=== PATIENT | female | born 1970 | race Caucasian/White ===

== ENCOUNTER 2022-08-14 12:30 | Emergency (ER) | payer BC, SELFPAY ==
[2022-08-14] VITALS (7 sets, daily range): BP systolic 116–130; BP diastolic 78–88; PULSE 69–108; RESP 24; TEMP 36.3; O2SAT 93–98; BMI 26.6
--- NOTE | 2022-08-14 13:00 | CRLHL7_ITS ---
For Patients: As a result of the Century Cures Act, medical imaging exams and procedure reports are released immediately into your electronic medical record. You may view this report before your referring provider. If you have questions, please contact your health care provider. INDICATION: Cough. TECHNIQUE: Chest 1 views. COMPARISON: None. FINDINGS: Cardiovasculature and mediastinum: Heart size and vasculature are normal in caliber and appearance. Lungs and pleural spaces: Lungs are clear. No sign of infiltrate or mass. No sign of pleural effusion. No pneumothorax. Bones and soft tissues: No significant findings. IMPRESSION: No acute or significant findings. Dictated by Tim Mills MD @ 08/14/2022 2:24:11 PM (Electronically Signed)
--- NOTE | 2022-08-14 13:13 | ED.GENADULT ---
HPI - General Adult General Chief complaint: Cough Stated complaint: chest pressure, feeling ill Time Seen by Provider: 08/14/22 12:45 History of Present Illness HPI narrative: 51-year-old woman presenting to the emergency department just feeling awful generally and getting worse over the last 3 days. 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 Describing marked myalgias. No fever. No rash. Persistent cough. Has tried combination [id number] cough medication including guaifenesin and acetaminophen. No change in symptoms. Has been trying to push fluids. Has been struggling with post COVID syndrome since 2020. Daughter was recently diagnosed with West Nile ultimately requiring intubation prolonged ventilation. 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 Has not been vomiting. No diarrhea. His like she might be dehydrated has finding it more difficult to keep up with her usual gal? per day. Has a lot of tightness across the chest. 2 home COVID tests were negative. No longer with strep since tonsillectomy when young. Related Data Home Medications Medication Instructions Recorded Confirmed duloxetine 20 mg capsule,delayed 40 mg PO DAILY 08/14/22 08/14/22 release letrozole 2.5 mg tablet 2.5 mg PO DAILY 08/14/22 08/14/22 levothyroxine 100 mcg tablet 100 mcg PO DAILY 08/14/22 08/14/22 pyridostigmine bromide 60 mg tablet 60 mg PO DAILY 08/14/22 08/14/22 sulfasalazine 500 mg tablet 1,000 mg PO BID 08/14/22 08/14/22 Allergies Allergy/AdvReac Type Severity Reaction Status Date / Time vancomycin [From Vancocin] Allergy Verified 08/14/22 12:42 Review of Systems Status of ROS: Reports: 6 or more systems reviewed and unremarkable except as noted in History and below [facility] Social History Smoking Status: Never smoker Do you use any of these nicotine containing products: None How often do you have a drink containing alcohol: monthly or less How many standard drinks containing alcohol do you have on a typical day: 1 or 2 AUDIT-C Alcohol total score: 1 Non-prescribed substance use: denies use Exam Narrative: Exam Narrative: Pleasant. NAD. Sounds congested in the nasopharynx. No facial swelling or erythema. TMs are clear. Breathing easily. Lungs are clear. Intermittent small to moderate cough. Appears dry. Oropharynx is moist not particularly erythematous. No cervical lymphadenopathy. Heart with elevated to slightly tachycardic rate in a regular rhythm. Abdomen is soft. Extremities are well perfused without edema. No rash apparent. Numerous tattoos. Const: Vital Signs, click to edit/add: Vital Signs - 24 hr 08/14/22 12:35 Temperature 97.3 F L Pulse Rate [Pulse Oximeter] 108 H Respiratory Rate 24 Blood Pressure [Ri ght Upper Arm] 116/78 Pulse Oximetry 96 Oxygen Delivery Me thod Room Air Documenting provider has reviewed patient's vital signs: yes Course Vital Signs Vital signs: Initial Vital Signs Temperature 97.3 F L 08/14/22 12:35 Temperature Source Temporal Artery Scan 08/14/22 12:35 Pulse Rate 108 H 08/14/22 12:35 Respiratory Rate 24 08/14/22 12:35 Blood Pressure 116/78 08/14/22 12:35 Blood Pressure Mean 90 08/14/22 12:35 Blood Pressure Position Supine 08/14/22 12:35 Pulse Oximetry 96 08/14/22 12:35 Oxygen Delivery Method Room Air 08/14/22 12:35 Vital Signs Temperature 97.3 F L 08/14/22 12:35 Pulse Rate 108 H 08/14/22 12:35 Respiratory Rate 24 08/14/22 12:35 Blood Pressure 116/78 08/14/22 12:35 Pulse Oximetry 96 08/14/22 12:35 Oxygen Delivery Method Room Air 08/14/22 12:35 Temperature 97.3 F L 08/14/22 12:35 Pulse Rate 72 08/14/22 14:57 Respiratory Rate 24 08/14/22 12:35 Blood Pressure 130/88 08/14/22 14:57 Pulse Oximetry 97 08/14/22 14:57 Oxygen Delivery Method Room Air 08/14/22 12:35 Medical Decision Making [facility] Narrative Medical decision making narrative: Will be doing triple swab. Seems like a viral syndrome with associated myalgias. All in the setting of reportedly enhanced sensitivity. Give normal saline IV and ketorolac. Chest x-ray evaluating for pneumonia, edema. Does not seem to be in any way septic although tachycardic. Swab and strep testing and negative. With treatments not much changed in symptoms but overall reassured. Chest x-ray by my read is WNL. Was reading during her time here in the emergency department. See patient discharge plan Lab Data Lab results reviewed: Yes I reviewed the patient's lab results Labs: Lab Results 08/14/22 Range/Units 12:45 SARS-CoV-2 (PCR) Negative SARS-CoV-2 (Negative) Influenza Type A (PCR) Negative PCR FLU A (Negative) Influenza Type B (PCR) Negative PCR FLU B (Negative) RSV (PCR) Negative PCR RSV (Negative) Group A Strep DNA NOT DETECTED (Not Detectd) Discharge Plan Discharge Clinical Impression: Myalgia, URI with cough and congestion Patient Disposition: Home, Self-Care Condition: Stable Additional Instructions: Continue to focus on hydration. Consider long-acting pseudoephedrine for some drying and decongestion which might help with your cough. Diphenhydramine can sometimes be drying as well. Might sleep under the mist of cool mist humidifier Might suck on ice chips. Return for increasing fever, inability to control fever, increasing and persistent shortness of breath, increasing chest pain. Prescriptions: No Action duloxetine 20 mg capsule,delayed release(DR/EC) 40 mg PO DAILY levothyroxine 100 mcg tablet 100 mcg PO DAILY letrozole 2.5 mg tablet 2.5 mg PO DAILY pyridostigmine bromide 60 mg tablet 60 mg PO DAILY sulfasalazine 500 mg tablet 1,000 mg PO BID Follow Up/Referrals: Provider,Not a Local [Primary Care Provider] - Stand Alone Forms: [facility] Info Instructions
--- OUTSIDE RECORDS SUMMARY | 2022-08-14 13:18 | XMS_ITS | Continuity of Care Document ---
Author Name [facility] Address [address] [place] [address] Organization [facility] Address [address] [place] [address] Support Name Relationship Address Phone Pcp-Ruddy, Primary Care Provider Unknown Hossein Salvador Emergency Provider Unknown Unavailable Allergies, Adverse Reactions, Alerts Allergen Type Severity Reaction Last Updated Verified Status vancomycin Adverse Reaction Rash August 11, 2018 Y Active Medications Active Medications Medication Dose Units Route Sig Qty Days Start Date St atus Letrozole 2.5 MG PO DAILY August 11, 2018 Active Levothyroxine [Synthroid] 0.112 MG PO DAILY@0600 August 11, 2018 Ac tive Ciprofloxacin Hcl [Cipro] 500 MG PO TWICE A DAY 20 August 11, 2018 Activ e Metronidazole [Flagyl] 500 MG PO TH REE TIMES A DAY 30 10 August 11, 2018 Active Ondansetron [Zofran] 4 MG PO EVER Y 8 HOURS PRN For Nausea August 11, 2018 Active Problem List Active Problems Medical Problem Onset Date Status Abdominal pain Active Procedures Procedure Date Status CT abdomen pelvis w con August 11, 2018 complete d Relevant Diagnostic Tests and/or Laboratory Data Laboratory Results Test Date/Time Result Interp. Ref. Range Result Co mment White Blood Count August 11, 2018 4:40pm 11.90 K/uL High 4.30-10.00 Red Blood Count August 11, 2018 4:40pm 5.06 M/uL High 3.80-5.00 Hemoglobin August 11, 2018 4:40pm 14.9 gm/dL 12.0-15.0 Hematocrit August 11, 2018 4:40pm 44.4 % 35.0-45.0 Mean Corpuscular Volume August 11, 2018 4:40pm 87.7 fL 85.0-100.0 Mean Corpuscular Hemoglobin August 11, 2018 4:40pm 29.4 pg 27.0-33.0 Mean Corpuscular Hemoglobin Concent August 11, 2018 4:40pm 33.5 gm/dL 32.0-36.0 Red Cell Distribution Width August 11, 2018 4:40pm 14.2 % 11.5-14.5 Platelet Count August 11, 2018 4:40pm 235 K/uL 150-400 Mean Platelet Volume August 11, 2018 4:40pm 10.9 fl Absolute Neutrophil August 11, 2018 4:40pm 10.5 K/uL High 2.0-7.0 Neutrophils (%) (Auto) August 11, 2018 4:40pm 88.2 % High 45.0-75.0 Lymphocytes (%) (Auto) August 11, 2018 4:40pm 8.1 % Low 20.0-40.0 Monocytes (%) (Auto) August 11, 2018 4:40pm 3.0 % 1.0-13.1 Eosinophils (%) (Auto) August 11, 2018 4:40pm 0.5 % 0-5 Basophils (%) (Auto) August 11, 2018 4:40pm 0.2 % 0.0-1.0 Nucleated Red Blood Cells August 11, 2018 4:40pm 0.1 /100 WBC 0.0-3.0 Urine Color August 11, 2018 4:40pm Yellow Urine Clarity August 11, 2018 4:40pm Clear Urine pH August 11, 2018 4:40pm 6.5 5.0-7.0 Urine Specific [place] August 11, 2018 4:40pm 1.010 1.005-1.02 5 Urine Blood August 11, 2018 4:40pm Negative Urine Protein August 11, 2018 4:40pm Negative Urine Glucose (UA) August 11, 2018 4:40pm Negative Urine Ketones August 11, 2018 4:40pm 2+ Urine Nitrate August 11, 2018 4:40pm Negative Urine Bilirubin August 11, 2018 4:40pm Negative Urine Urobilinogen August 11, 2018 4:40pm 0.2 mg/dl Urine Leukocyte Esterase August 11, 2018 4:40pm Positive Urine RBC August 11, 2018 4:40pm None seen /HPF Urine WBC August 11, 2018 4:40pm 0-5 /HPF Urine Squamous Epithelial Cells August 11, 2018 4:40pm 1-2 /LPF Urine Bacteria August 11, 2018 4:40pm None seen /HPF Urine Yeast (Budding) August 11, 2018 4:40pm Few /HPF Sodium Level August 11, 2018 4:40pm 134 mEq/L 132-146 Potassium Level August 11, 2018 4:40pm 3.6 mEq/L 3.4-5.2 Chloride Level August 11, 2018 4:40pm 99 mEq/L 93-109 Carbon Dioxide Level August 11, 2018 4:40pm 26.0 mEq/L 23.0-29.0 Anion Gap August 11, 2018 4:40pm 9 5-20 Blood Urea Nitrogen August 11, 2018 4:40pm 17 mg/dL 6-22 Creatinine August 11, 2018 4:40pm 0.80 mg/dL 0.50-1.70 Estimated Creatinine Clearance August 11, 2018 4:40pm 71 mL/min ???This value is calculated by Cockcroft Gault Equation using ideal body weight. This result is dependent on an accurate patient height and weight which is obtained from patient???s medical record.??? Gina HooverW. and M.H. Gault. Prediction of creatinine clearance from serum creatinine. Nephron. 1976. 16(1):31-41. Estimated GFR () August 11, 2018 4:40pm > 60 Estimated GFR (Non- August 11, 2018 4:40pm > 60 National Kidney Foundation Guidelines: Interpretation of GFR should be based upon values stable for 3 months or more and in relation to clinical history and presenting conditions. This formula is not applicable for patients <18 years of age. GFR: Interpretation: >=60 Normal kidney function 16-59 Chronic kidney disease with decreased kidney function <=15 Kidney Failure BUN/Creatinine Ratio August 11, 2018 4:40pm 21 Ratio High 6-20 Glucose Level August 11, 2018 4:40pm 102 mg/dL High 68-100 Calculated Osmolality August 11, 2018 4:40pm 270 mOsm/kg 270-290 Calcium Level August 11, 2018 4:40pm 9.9 mg/dL 8.0-10.4 Total Bilirubin August 11, 2018 4:40pm 0.4 mg/dL 0.1-1.2 Aspartate Amino Transf (AST/SGOT) August 11, 2018 4:40pm 30 IU/L 4-44 Alanine Aminotransferase (ALT/SGPT) August 11, 2018 4:40pm 22 IU/L 5-40 Total Protein August 11, 2018 4:40pm 7.9 g/dL 5.6-8.0 Albumin August 11, 2018 4:40pm 4.9 g/dL 3.2-5.2 Globulin August 11, 2018 4:40pm 3.0 g/dL 2.0-3.9 Albumin/Globulin Ratio August 11, 2018 4:40pm 1.6 0.9-1.8 Alkaline Phosphatase August 11, 2018 4:40pm 55 U/L 34-128 Lipase August 11, 2018 4:40pm 62 U/L High 22-51 Urine HCG, Qualitative August 11, 2018 4:40pm Negative This test result, when used in the diagnosis of , should be interpreted with other clinical and laboratory data. Sensitivity limit 20 mlU/mL Advance Directives Advance Directive Response Recorded Date/ Time Advance Directives No August 11 9 4:12pm Health Care Proxy No August 11, 2018 4:12pm Chief Complaint and Reason for Visit Encounter Admit Date Chief Complaint Reason for V isit Departed Emergency August 11, 2018 4:11pm diarrhea Hospital Discharge Instructions No known hospital discharge instructions. Hospital Discharge Medications Medication Dose Units Route Sig Qty Days Order Date Status Instructions Letrozole 2.5 MG PO DAILY August 11, 2018 Active Levothyroxine 0.112 MG PO DAILY@0600 August 11, 2018 Active Ciprofloxacin Hcl 500 MG PO TWICE A DAY 20 August 11, 2018 Active Metronidazole 500 MG PO THREE TIMES A DAY 30 10 August 11, 2018 Active Ondansetron 4 MG PO EVERY 8 HOURS PRN For Nausea 20 August 11, 2018 Active Encounters Encounter Facility Location Admit/Visit Date Discharge/Departure Date Attending Provider Departed Emergency [facility] August 11, 2018 4:11pm August 11, 2018 7:49pm Functional Status No known functional status. Immunizations No known immunizations. Payers Payer Name Policy Type Covered Republican Covered Republican Id Relationship Subscriber Subscriber Id Commercial Other Commercial NGHIA MICHAEL [id number] Self / Same As Patient NGHIA MICHAEL [id number] Self Pay Personal Payment (Shafer - No Insurance) Plan of Care Instructions ED Abdominal Pain Unkn Cause Fem Social History Query Response Date Recorded Comment Living Situation Private Home August 11, 2018 7:02pm Query Response Start Date Stop Date Smoking Status Never smoker Vital Signs Vital Reading Result Reference Range Collection Date/Time Height 1.6 m August 11, 2018 4:30pm Weight 58.967 kg August 11, 2018 4:30pm Temperature 98.8 F 97.6 F-99.6 F August 11, 2018 7:46pm Pulse 68 BPM 60-90 August 11, 2018 7:46pm Respiration 20 RPM 12-24 August 11, 2018 7:46pm Pulse Oximetry 99 % 95-100 August 11 9 7:46pm Blood Pressure Systolic 127 90-140 Apri l 2018 7:46pm Blood Pressure Diastolic 66 60-90 Apr il 2018 7:46pm Body Mass Index 23.0 August 11 4:30pm
--- OUTSIDE RECORDS SUMMARY | 2022-08-14 13:18 | XMS_ITS | Continuity of Care Document ---
Author Name Unknown Address [address] [place] [address] Phone [facility] Address [address] [place] [address] Phone Support Name Relationship Address Phone [facility] Unknown UNK UNK, UN UNK Allergies, Adverse Reactions, Alerts Allergen Type Severity Reaction Last Updated Verified Status vancomycin Adverse Reaction Rash August 11, 2018 Yes Active Medications Medication Status Dose Units Route Sig Qty Days Start Date End Date Instructions Letrozole Active 2.5 MG Oral DAILY August 11, 2018 4:31pm Levothyroxine Active 0.112 MG Oral DAILY@ 06 00 August 11, 2018 4:31pm Ciprofloxacin Hcl Active 500 MG Oral TWICE A DAY 20 August 11, 2018 7:00pm Metronidazole Active 500 MG Oral THREE TIMES A DAY 30 August 11, 2018 7:00pm Ondansetron Active 4 MG Oral EVERY 8 HOURS August 11, 2018 7:00pm Problems Inactive/Resolved Problems Medical Problem Onset Date Status Abdominal pain Resolved Assessments No Assessments Information Available Functional Status No Functional Status information available Goals Goals may be documented in an alternate section. Mental Status No Mental Status Information Available Medical Equipment No Medical Equipment Information available Insurance Providers Payer Policy Id Coverage Id Subscriber's Name Subscriber Id Effective Date Expiration Date Commercial Other [id number] CHAUDONAVAN SKYMARIO [id number] Self Pay Self N/A Social History Assigned Sex Female
--- OUTSIDE RECORDS SUMMARY | 2022-08-14 13:18 | XMS_ITS | Continuity of Care Document ---
Author Name [facility] Address [address] [place] [id number] Organization [facility] Address [address] [id number] Allergies, Adverse Reactions, Alerts Allergen Type Severity [...] PO TH REE TIMES A DAY 30 August 11, 2018 Active Ondansetron [Zofran] 4 MG PO EVER Y 8 HOURS PRN For Nausea August 11, 2018 Active Problem List Inactive/Resolved Problems Medical Problem Onset Date Status Abdominal pain Inactive Procedures No known history of procedures. Relevant Diagnostic Tests and/or Laboratory Data No known relevant diagnostic tests, laboratory data, and/or discharge summary. Hospital Discharge Instructions No known hospital discharge instructions. Hospital Discharge Medications Medication Dose Units Route Sig Qty Days Order Date Status Instructions Letrozole 2.5 MG PO DAILY August 11, 2018 Active Levothyroxine 0.112 MG PO DAILY@0600 August 11, 2018 Active Ciprofloxacin Hcl 500 MG PO TWICE A DAY 20 August 11, 2018 Active Metronidazole 500 MG PO THREE TIMES A DAY 30 August 11, 2018 Active Ondansetron 4 MG PO EVERY 8 HOURS PRN For Nausea August 11, 2018 Active Functional Status No known functional status. Immunizations No known immunizations. Payers Payer Name Policy Type Covered Republican Covered Republican Id Relationship Subscriber Subscriber Id Commercial Other Commercial NGHIA MICHAEL [id number] Self / Same As Patient NGHIA MICHAEL [id number] Self Pay Personal Payment (Shafer - No Insurance) Plan of Care No Known Plan of Care Information Social History No known social history. Vital Signs No known vital signs results.
--- OUTSIDE RECORDS SUMMARY | 2022-08-14 13:18 | XMS_ITS | Continuity of Care Document ---
Author Name [facility] Address [address] [place] [address] Organization [facility] Address [address] [place] [address] Support Name Relationship Address Phone Pcp-Ruddy, Primary [...] 11, 2018 4:40pm 6.5 5.0-7.0 Urine Specific [place] August 11, 2018 4:40pm 1.010 1.005-1.02 5 [...] Date Discharge/Departure Date Attending Provider Departed Emergency [facility] August 11, 2018 4:11pm August 11, 2018 7:49pm Functional Status No known functional status. Immunizations No known immunizations. Payers Payer Name Policy Type Covered Alliance Party Covered Alliance Party Id Relationship Subscriber Subscriber Id Commercial Other Commercial NGHIA MICHAEL [id number] Self / Same As Patient NGHIA MICHAEL [id number] Self Pay Personal Payment (Shafer - No [...]
--- OUTSIDE RECORDS SUMMARY | 2022-08-14 13:18 | XMS_ITS | Continuity of Care Document ---
Author Name [facility] Address [address] [place] [address] Organization [facility] Address [address] [place] [address] Support Name Relationship Address Phone Pcp-Ruddy, Primary [...] 11, 2018 4:40pm 6.5 5.0-7.0 Urine Specific [place] August 11, 2018 4:40pm 1.010 1.005-1.02 5 [...] Discharge/Departure Date Attending Provider Departed Emergency [facility] August 11, 2018 4:11pm August 11, 2018 7:49pm Functional Status No known functional status. Immunizations No known immunizations. Payers Payer Name Policy Type Covered Alliance Party Covered Alliance Party Id Relationship Subscriber Subscriber Id Commercial Other Commercial NGHIA MICHAEL [id number] Self / Same As Patient NGHIA MICHAEL [id number] Self Pay Personal Payment (Shafer - No [...]
[2022-08-14] MEDS: KETOROLAC 30 MG/ML inj IVP (13:50)
[2022-08-14] MEDS: 0.9 % SODIUM CHLORIDE 1000 ml 1,000 ML IV (13:50)
[2022-08-14 14:12] LABS: Strep A DNA Probe* NOT DETECTED (Not Detectd)
[2022-08-14 14:28] LABS: PCR FLU A Negative PCR FLU A (Negative); PCR FLU B Negative PCR FLU B (Negative); PCR RSV Negative PCR RSV (Negative)
[2022-08-14 14:36] LABS: SARS PCR* Negative SARS-CoV-2 (Negative)
== END 2022-08-14 15:01 | disposition home or self-care (01) ==
PROVIDERS: Emergency Provider Family Medicine
DX: M79.10 Myalgia, unspecified site (principal); J06.9 Acute upper respiratory infection, unspecified
CPT/HCPCS: 71045; 87631; 87651; 96374; 99283; 99284; J1885; J7030

== ENCOUNTER 2022-10-09 16:15 | Emergency (ER) | payer BC, SELFPAY ==
[2022-10-09 16:26] VITALS: BP 130/84; PULSE 67; RESP 22; O2SAT 99; BMI 26.6
--- NOTE | 2022-10-09 16:26 | ED.GENADULT ---
HPI - General Adult General Chief complaint: Unspecified Complaint, Adult Stated complaint: Long Covid Time Seen by Provider: 10/09/22 16:17 History of Present Illness HPI narrative: Patient reports long Covid for several months. She is tearful in triage. Symptoms reported include noise with eye movement and nausea with looking at photos on phone . She brings up lab alterations that she attributes to Long Covid and also thyroid. 51-year-old woman presenting to the emergency department with concern of feeling particularly and increasingly weak over the last 3 days. Last time she felt like this she reports being septic. She has not had a fever. Does have long COVID with particular effect on thyroid levels. Is managed by endocrine. The been having difficulty getting things level. She is worried that these levels might be off. Symptoms that she associates with long COVID has been a chiming sound in her head with eye movement and a sense of dizziness. This is increased again. She has had extensive imaging when these symptoms began couple of years ago resulting in thankfully negative head imaging. Not necessarily having headaches. Some nausea though. Feeling increasingly stressed. It sounds like her associate director career services will be leaving the clinic and it is hard to get appointment with them. Primary care through [employer] Home Medications Medication Instructions Recorded Confirmed duloxetine 20 mg capsule,delayed 40 mg PO DAILY 08/14/22 08/14/22 release letrozole 2.5 mg tablet 2.5 mg PO DAILY 08/14/22 08/14/22 levothyroxine 100 mcg tablet 100 mcg PO DAILY 08/14/22 08/14/22 pyridostigmine bromide 60 mg tablet 60 mg PO DAILY 08/14/22 08/14/22 sulfasalazine 500 mg tablet 1,000 mg PO BID 08/14/22 08/14/22 Allergies Allergy/AdvReac Type Severity Reaction Status Date / Time vancomycin [From Vancocin] Allergy Verified 08/14/22 12:42 Review of Systems Status of ROS: Reports: 6 or more systems reviewed and unremarkable except as noted in History and below [facility] Social History Smoking Status: Never smoker Do you use any of these nicotine containing products: None How often do you have a drink containing alcohol: monthly or less How many standard drinks containing alcohol do you have on a typical day: 1 or 2 AUDIT-C Alcohol total score: 1 Non-prescribed substance use: denies use Exam Narrative: Exam Narrative: Pleasant. Is admittedly tearful. Is browsing her phone/texting when I enter the room. Breathing easily. Head looks to be atraumatic. Cranial nerves 2-12 intact. TMs are clear. There is no nystagmus with eye movement. Subjectively reproducible symptoms as noted above with rotational head movement and movement of eyes side to side. She does not have any restriction to extraocular movements. Heart with regular rate and rhythm. Extremity movements are fluid. Skin is a little clammy. Extremities are well perfused without edema. Const: Vital Signs, click to edit/add: Vital Signs - 24 hr 10/09/22 16:26 10/09/22 19:21 Pulse Rate [Pulse Oximeter] 67 63 Respiratory Rate 22 Blood Pressure [Ri ght Upper Arm] 130/84 155/86 H Pulse Oximetry 99 98 Oxygen Delivery Me thod Room Air Room Air Documenting provider has reviewed patient's vital signs: yes Course Vital Signs Vital signs: Initial Vital Signs Pulse Rate 67 10/09/22 16:26 Respiratory Rate 22 10/09/22 16:26 Blood Pressure 130/84 10/09/22 16:26 Blood Pressure Mean 99 10/09/22 16:26 Pulse Oximetry 99 10/09/22 16:26 Oxygen Delivery Method Room Air 10/09/22 16:26 Vital Signs Pulse Rate 67 10/09/22 16:26 Respiratory Rate 22 10/09/22 16:26 Blood Pressure 130/84 10/09/22 16:26 Pulse Oximetry 99 10/09/22 16:26 Oxygen Delivery Method Room Air 10/09/22 16:26 Pulse Rate 63 10/09/22 19:21 Respiratory Rate 22 10/09/22 16:26 Blood Pressure 155/86 H 10/09/22 19:21 Pulse Oximetry 98 10/09/22 19:21 Oxygen Delivery Method Room Air 10/09/22 19:21 Medical Decision Making MDM Narrative Medical decision making narrative: We discussed that likely labs will be normal. Certainly can check TSH levels. I think she acknowledges that this is more of an outpatient evaluation especially with familiar history and that these symptoms with normal evaluation beyond labile thyroid studies. We can certainly evaluate TSH levels. Will IV hydrate also and give a dosing of lorazepam. On reassessment is more relaxed. Seems more comfortable. Labs overall are reassuring notable mostly for a TSH of 20.7. I think that being hypothyroid could be additionally contributing to some of her fatigue. Reassured but understandably disappointed by rather elevated TSH level. Further thyroid testing can be done outpatient particularly with endocrinology as has been rather complicated to manage. Medical Records Medical records reviewed: Yes I reviewed the patient's medical records Lab Data Lab results reviewed: Yes I reviewed the patient's lab results Labs: Lab Results 10/09/22 Range/Units 17:40 WBC 4.65 (4.50-11.00) K/uL RBC 4.28 (4.00-5.20) m/uL Hgb 13.0 (12.0-16.0) gm/dL Hct 40.3 (33.0-51.0) % MCV 94 (80-100) fL MCH 30 (26-34) pg MCHC 32 (32-36) gm/dL RDW Coeff of Nere[place] 13.4 (11.5-15.5) % Plt Count 192 (140-440) K/uL Neut % (Auto) 64.6 (42.0-72.0) % Lymph % (Auto) 27.3 (20-44) % [place] % (Auto) 7.7 (0.0-11.0) % Eos % (Auto) 0.0 (0.0-7.0) % Baso % (Auto) 0.4 (0.0-3.0) % Neut # (Auto) 3.00 (1.7-7.0) K/uL Lymph # (Auto) 1.27 (0.90-2.90) K/uL [place] # (Auto) 0.40 (0.00-0.90) K/UL Eos # (Auto) 0.00 (0.00-0.50) K/uL Baso # (Auto) 0.02 (0.00-0.30) K/uL Sodium 139 (135-149) mmol/L Potassium 3.7 (3.6-5.1) mmol/L Chloride 102 (96-114) mmol/L Carbon Dioxide 27 (20-32) mmol/L BUN 12 (7-30) mg/dL Creatinine 0.8 (0.5-1.5) mg/dL Estimated Creat Clear 68.05 Estimated GFR 89 ml/min Glucose 98 (60-115) mg/dL Calcium 10.0 (8.4-10.6) mg/dL Magnesium 2.2 (1.5-2.6) mg/dL Total Bilirubin 0.5 (0.1-1.5) mg/dL Direct Bilirubin 0.5 (0.0-0.5) mg/dL AST 41 H (12-35) U/L ALT 33 (4-35) U/L Alkaline Phosphatase 75 (40-150) U/L C-Reactive Protein 0.6 (0.5-1.0) mg/dL Total Protein 9.1 H (6.0-8.3) g/dL Albumin 5.1 H (3.3-5.0) g/dL TSH 20.700 H (0.270-4.20) uIU/mL Urine Color Yellow (Yellow) Urine Appearance Clear (Clear) Urine pH 7.0 (5.0-8.5) Ur Specific Martin 1.015 (1.000-1.030) Urine Protein Negative (Negative) Urine Glucose (UA) Negative (Negative) Urine Ketones Negative (Negative) Urine Blood Negative (Negative) Urine Nitrite Negative (Negative) Urine Bilirubin Negative (Negative) Urine Urobilinogen 0.2 (0.2-1.0) Ur Leukocyte Esterase Negative (Negative) Urine RBC 0-2 (0-2) Urine WBC 0-2 (0-5) Ur Squamous Epith Cells Few (None-Few) Urine Bacteria None (None) Discharge Plan Discharge Clinical Impression: Hypothyroid, Weakness Patient Disposition: Home w/ Parent or Adult Condition: Stable Instructions: Hypothyroidism (ED) Additional Instructions: Please check in with your primary care provider and/or associate director career services. Your TSH today was 20.7. Continue to focus on hydration. Return for worsening weakness, associated fever. Prescriptions: No Action duloxetine 20 mg capsule,delayed release(DR/EC) 40 mg PO DAILY levothyroxine 100 mcg tablet 100 mcg PO DAILY letrozole 2.5 mg tablet 2.5 mg PO DAILY pyridostigmine bromide 60 mg tablet 60 mg PO DAILY sulfasalazine 500 mg tablet 1,000 mg PO BID Follow Up/Referrals: Provider,Not a Local [Primary Care Provider] - Stand Alone Forms: [employer] Info Instructions
[2022-10-09] MEDS: 0.9 % SODIUM CHLORIDE 1000 ml 1,000 ML IV (17:44)
[2022-10-09] MEDS: LORazepam 2 MG/ML inj 0.5 MG IVP (17:57)
[2022-10-09 18:04] LABS: Basophils Absolute Auto 0.02 K/uL (0.00-0.30); Basophils Percent Auto 0.4 % (0.0-3.0); Hematocrit 40.3 % (33.0-51.0); Lymphocytes Absolute Auto 1.27 K/uL (0.90-2.90); Lymphocytes Percent Auto 27.3 % (20-44); Mean Corpuscular HGB Conc 32 gm/dL (32-36); Mean Corpuscular Hemoglobin 30 pg (26-34); Mean Corpuscular Volume 94 fL (80-100); Monocytes Percent Auto 7.7 % (0.0-11.0); Neutrophils Percent Auto 64.6 % (42.0-72.0); Platelet Count* 192 K/uL (140-440); RDW Coefficient of Variation % 13.4 % (11.5-15.5); Red Blood Count 4.28 m/uL (4.00-5.20); White Blood Count* 4.65 K/uL (4.50-11.00)
[2022-10-09 18:06] LABS: Slide Review Reflex No
[2022-10-09 18:16] LABS: Albumin* 5.1 g/dL (3.3-5.0); Chloride* 102 mmol/L (96-114)
[2022-10-09 18:17] LABS: Potassium* 3.7 mmol/L (3.6-5.1); Sodium* 139 mmol/L (135-149)
[2022-10-09 18:19] LABS: Creatinine* 0.8 mg/dL (0.5-1.5); Est. Creatinine Clearance* 68.05; Estimated Glomerular Filt Rate 89 ml/min
[2022-10-09 18:20] LABS: Alanine Aminotransferase* 33 U/L (4-35); Alkaline Phosphatase* 75 U/L (40-150); Aspartate Amino Transferase* 41 U/L (12-35); Bilirubin Direct* 0.5 mg/dL (0.0-0.5); Bilirubin Total* 0.5 mg/dL (0.1-1.5); Blood Urea Nitrogen* 12 mg/dL (7-30); Carbon Dioxide* 27 mmol/L (20-32); Glucose* 98 mg/dL (60-115); Magnesium* 2.2 mg/dL (1.5-2.6); Total Protein* 9.1 g/dL (6.0-8.3)
[2022-10-09 18:23] LABS: C Reactive Protein* 0.6 mg/dL (0.5-1.0)
[2022-10-09 19:21] VITALS: BP 155/86; PULSE 63; O2SAT 98
[2022-10-09 19:26] LABS: Appearance Urine Clear (Clear); Bilirubin Urine Negative (Negative); Blood Urine Negative (Negative); Color Urine Yellow (Yellow); Glucose Urine Negative (Negative); Ketones Urine Negative (Negative); Leukocyte Esterase Urine Negative (Negative); Nitrite Urine Negative (Negative); Protein Urine Negative (Negative); Specific Gravity Urine 1.015 (1.000-1.030); Urobilinogen Urine 0.2 (0.2-1.0)
[2022-10-09 19:29] LABS: RBC Urine 0-2 (0-2); Squamous Epithelial Cell Urine Few (None-Few); WBC Urine 0-2 (0-5)
== END 2022-10-09 19:36 | disposition home or self-care (01) ==
PROVIDERS: Emergency Provider Family Medicine
DX: E03.9 Hypothyroidism, unspecified (principal); R53.1 Weakness
CPT/HCPCS: 36415; 80048; 80076; 81001; 83735; 84443; 85025; 86140; 96361; 96374; 99284; J2060; J7030

== ENCOUNTER 2022-11-04 11:41 | Emergency (ER) | payer BC, SELFPAY ==
[2022-11-04 12:01] VITALS: BP 117/77; PULSE 76; RESP 18; TEMP 36.6; O2SAT 96; BMI 26.6
--- NOTE | 2022-11-04 12:12 | ED.GENADULT ---
HPI - General Adult General Time Seen by Provider: 12:53 Date Seen: 11/04/22 Chief complaint: Skin/Abscess/Foreign Body Stated complaint: Wasp sting two days ago, face still swollen Time Seen by Provider: 11/04/22 12:12 Source: patient, RN notes reviewed and old records reviewed Mode of arrival: ambulatory Limitations: no limitations History of Present Illness HPI narrative: Patient is a very pleasant 51-year-old female with history of long COVID who comes to the emergency room after having been stung by a paper wasps 2 days ago. Patient notes 1 direct staying between her eyes. Since that time she has continued itching and swelling of the periorbital area and forehead. She has not had any difficulty with speech swallowing or breathing fortunately. She has been increasing the use of Benadryl to 3 times daily from her usual just nighttime dose. She attributes the continued swelling to long COVID. She has not had any anaphylaxis in the past. Patient notes that she sent a picture to her primary clinic and the instructed her to be seen immediately at the emergency room. Related Data Home Medications Medication Instructions Recorded Confirmed duloxetine 20 mg capsule,delayed 60 mg PO DAILY 08/14/22 11/04/22 release letrozole 2.5 mg tablet 2.5 mg PO DAILY 08/14/22 11/04/22 levothyroxine 100 mcg tablet 112 mcg PO DAILY 08/14/22 11/04/22 sulfasalazine 500 mg tablet 1,000 mg PO BID 08/14/22 11/04/22 Previous Rx's Medication Instructions Recorded prednisone 50 mg tablet 50 mg PO DAILY #5 tabs 11/04/22 Allergies Allergy/AdvReac Type Severity Reaction Status Date / Time vancomycin [From Vancocin] Allergy Verified 11/04/22 12:07 Review of Systems Status of ROS: Reports: 6 or more systems reviewed and unremarkable except as noted in History and below ENMT: Denies: throat pain, difficulty swallowing or hoarseness Cardio: Denies: chest pain or shortness of breath with exertion Resp: Denies: shortness of breath GI: Denies: difficulty swallowing Integ/Breast: Reports: itching, redness, skin tenderness and skin swelling PFSH PFSH Social History Smoking Status: Never smoker Do you use any of these nicotine containing products: None How often do you have a drink containing alcohol: monthly or less How many standard drinks containing alcohol do you have on a typical day: 1 or 2 AUDIT-C Alcohol total score: 1 Non-prescribed substance use: denies use service: No Exam Narrative: Exam Narrative: Patient is alert and oriented. No acute distress. EOM is full. Pupils equal and round. Periorbital swelling noted around both eyes right seems to be worse than left. Nares normal mouth is normal oral cavity with moist mucous membranes tongue is not swollen. Neck is supple. Heart with regular rate and rhythm and lungs are clear to auscultation. Const: Vital Signs, click to edit/add: Vital Signs - 24 hr 11/04/22 12:01 Temperature 97.9 F Pulse Rate [Right Pulse Oximeter] 76 Respiratory Rate 18 Blood Pressure [Ri ght Upper Arm] 117/77 Pulse Oximetry 96 Oxygen Delivery Me thod Room Air Documenting provider has reviewed patient's vital signs: yes Course Course Hospital Course: At this time patient has no evidence of cellulitis. Appears to be sequela from recent sting. No evidence of respiratory compromise or impending airway issues. Vital Signs Vital signs: Initial Vital Signs Temperature 97.9 F 11/04/22 12:01 Temperature Source Temporal Artery Scan 11/04/22 12:01 Pulse Rate 76 11/04/22 12:01 Respiratory Rate 18 11/04/22 12:01 Blood Pressure 117/77 11/04/22 12:01 Blood Pressure Mean 90 11/04/22 12:01 Blood Pressure Position Sitting 11/04/22 12:01 Pulse Oximetry 96 11/04/22 12:01 Oxygen Delivery Method Room Air 11/04/22 12:01 Vital Signs Temperature 97.9 F 11/04/22 12:01 Pulse Rate 76 11/04/22 12:01 Respiratory Rate 18 11/04/22 12:01 Blood Pressure 117/77 11/04/22 12:01 Pulse Oximetry 96 11/04/22 12:01 Oxygen Delivery Method Room Air 11/04/22 12:01 Temperature 97.9 F 11/04/22 12:01 Pulse Rate 76 11/04/22 12:01 Respiratory Rate 18 11/04/22 12:01 Blood Pressure 117/77 11/04/22 12:01 Pulse Oximetry 96 11/04/22 12:01 Oxygen Delivery Method Room Air 11/04/22 12:01 Medical Decision Making MDM Narrative Medical decision making narrative: 1. Allergic reaction wasp sting -at this time patient is been using Benadryl. Would suggest the addition of prednisone to the Benadryl. Patient is also taking an H2 maykel daily. Initially we had planned on 20 mg p.o. b.i.d. after 1 1st dose of prednisone at 60 mg. However her insurance does not cover that and insists son 50 mg dosages. Thus we will do 50 mg today. She may cut the pill in half for 25 mg p.o. b.i.d.. She has taken prednisone in the past without significant side effect. 2. Disposition-home at this time. Return for worsening symptoms and as needed. Medical Records Medical records reviewed: Yes I reviewed the patient's medical records Discharge Plan Discharge Clinical Impression: Allergic reaction to wasp sting Patient Disposition: Home, Self-Care Condition: Unchanged Instructions: Insect Bite or Sting (ED) Additional Instructions: Start prednisone today. First dose 60 mg then 20 mg every 12 hours. Expect gradual improvement over the next 24 hours. Return to the emergency room for difficulty breathing swelling of the tongue wheezing and as needed. Prescriptions: New prednisone 50 mg tablet 50 mg PO DAILY Qty: 5 0RF No Action duloxetine 20 mg capsule,delayed release(DR/EC) 60 mg PO DAILY levothyroxine 100 mcg tablet 112 mcg PO DAILY letrozole 2.5 mg tablet 2.5 mg PO DAILY sulfasalazine 500 mg tablet 1,000 mg PO BID Follow Up/Referrals: Provider,Not a Local [Primary Care Provider] - Stand Alone Forms: [email or web address] Info Instructions
== END 2022-11-04 12:38 | disposition home or self-care (01) ==
PROVIDERS: Emergency Provider Family Medicine
DX: T63.461A Toxic effect of venom of wasps, accidental (unintentional), initial encounter (principal); S01.152A Open bite of left eyelid and periocular area, initial encounter; S01.151A Open bite of right eyelid and periocular area, initial encounter
CPT/HCPCS: 99283

== ENCOUNTER 2024-06-22 05:24 | Emergency (ER) | payer BC, SELFPAY ==
--- OUTSIDE RECORDS SUMMARY | 2024-06-22 05:27 | XMS_ITS | Encounter Summary ---
Author Organization [employer] Address [address] [place] [address] Care Team Providers Care Footwear Machinery Instructor Name Role Phone Rand Smyth MD Primary Care Provider + [phone] Encounter Details Date Type Department Care Team (Late st Contact Info) Description 02/05/2016 Consent for Procedure/Treatme nt [facility] Department INFORMED CONSENT RECORD Social History Tobacco Use Types Packs/Day Years Used Date Smoking Tobacco: Never Alcohol Use Standard Drinks/Week Comments No 0 (1 standard drink = 0.6 oz pur e alcohol) rarely Comments No Sex and Gender Information Value Date Recorded Sex Assigned at Not on file Legal Sex Female 5:53 AM CDT Gender Identity Not on file Sexual Orientation Not on file documented as of this encounter Plan of Treatment Upcoming Encounters Date Type Department Care Team (Late st Contact Info) Description 06/23/2024 9:00 AM SPORTS EQUIPMENT RACKER Telemedicine [facility] [place] [address] [place] [address] Rand Smyth MD [address] [place] [address] documented as of this encounter Visit Diagnoses Not on filedocumented in this encounter Additional Health Concerns Infection Onset Date Last Indicated Resolved Time COVID19 03/13/2020 03/13/2020 04/03/2020 3:17 AM SPORTS EQUIPMENT RACKER R/O COVID19 04/04/2021 04/04/2021 04/05/2021 8:29 PM SPORTS EQUIPMENT RACKER COVID19 04/04/2021 04/04/2021 04/24/2021 3:17 AM SPORTS EQUIPMENT RACKER documented as of this encounter Care Teams Footwear Machinery Instructor Relationship Specialty Start Date End Date Rand Smyth MD [address] [place] [address] PCP - General Internal Medicine/Pediatrics 05/31/22 documented as of this encounter
--- OUTSIDE RECORDS SUMMARY | 2024-06-22 05:27 | XMS_ITS | Encounter Summary ---
Author Organization [employer] Address [address] [place] [address] Care Team Providers Care Surgical Services Tech Name Role Phone Rand Smyth MD Primary Care Provider + [phone] Encounter Details Date Type Department Care Team (Late st Contact Info) Description 01/16/2017 Correspondence None No Primary/Referring, Phy PRIOR AUTH REQUEST FOR COVERAGE [employer] Social History Tobacco Use Types Packs/Day Years Used Date Smoking Tobacco: Never Smokeless Tobacco: Never Alcohol Use Standard Drinks/Week Comments [...] st Contact Info) Description 06/23/2024 9:00 AM HOUSE SHORER Telemedicine [facility] [address] [place] [address] Rand Smyth MD [address] [place] [address] documented as of this encounter Visit Diagnoses Not on filedocumented in this encounter Additional Health Concerns Infection Onset Date Last Indicated Resolved Time COVID19 03/13/2020 03/13/2020 04/03/2020 3:17 AM HOUSE SHORER R/O COVID19 04/04/2021 04/04/202104/05/2021 8:29 PM HOUSE SHORER COVID19 04/04/2021 04/04/2021 04/24/2021 3:17 AM HOUSE SHORER documented as of this encounter Care Teams Surgical Services Tech Relationship Specialty Start Date End Date Rand Smyth MD [address] [place] [address] PCP - General Internal Medicine/Pediatrics 05/31/22 documented as of this encounter
--- OUTSIDE RECORDS SUMMARY | 2024-06-22 05:27 | XMS_ITS | Encounter Summary ---
Author Organization [employer] Address [address] [place] [address] Care Team Providers Care Buffet Runner Name Role Phone Rand Smyth MD Primary Care Provider [phone] Encounter Details Date Type Department Care Team (Late st Contact Info) Description 05/21/2016 Consent for Procedure/Treatme nt [facility] Department INFORMED CONSENT RECORD Social History Tobacco [...] st Contact Info) Description 06/23/2024 9:00 AM METALLOGRAPHIC TECHNICIAN Telemedicine [facility] [address] [place] [address] Rand Smyth MD [address] [place] [address] documented as of this encounter Visit Diagnoses Not on filedocumented in this encounter Additional Health Concerns Infection Onset Date Last Indicated Resolved Time COVID19 03/13/2020 03/13/2020 04/03/2020 3:17 AM METALLOGRAPHIC TECHNICIAN R/O COVID19 04/04/2021 04/04/2021 04/05/2021 8:29 PM METALLOGRAPHIC TECHNICIAN COVID19 04/04/2021 04/04/2021 04/24/2021 3:17 AM METALLOGRAPHIC TECHNICIAN documented as of this encounter Care Teams Buffet Runner Relationship Specialty Start Date End Date Rand Smyth MD [address] [place] [address] PCP - General Internal Medicine/Pediatrics 05/31/22 documented as of this encounter
--- OUTSIDE RECORDS SUMMARY | 2024-06-22 05:27 | XMS_ITS | Encounter Summary ---
Author Organization [employer] Address [address] [place] [address] Care Team Providers Care Lunchroom Worker Name Role Phone Rand Smyth MD Primary Care Provider + [phone] Encounter Details Date Type Department Care Team (Late st Contact Info) Description 04/16/2016 Home Visit [facility] [address] [place] [address] [address] [place] [address] Angela Raymond RN [address] [place] [id number] Social History Tobacco Use Types Packs/Day Years [...] on file documented as of this encounter Progress Notes * Angela Raymond RN - 04/16/2016 9:10 PM CST Nursing SAM & Recertification Summary: *SITUATION: Focus of care for this episode: wound care on abdomen 3x/week. 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 *BACKGROUND: Reason for Resumption: Client hospitalized for septic shock in breast implants. Hospital/TCU dates: [facility] 04/07 - 04/15 Living/CG situation: lives in single family home with and children. Language/tape deck installer: Kittitian *ASSESSMENT: T: 98.8 P: 112 R: 16 BP: 113/72 Pain: client is having pain in left breast and abdominal incision, 5/10, relieved by oxycontin. Cardiac: denies chest pain, no edema. Pulmonary: LS CTA bilateral, no SOB or cough noted. Nutrition: occasional nausea, regular diet, fair appetite. GI/: Continent of both bowel and bladder. Denies constipation. Neuro: alert and oriented x4. Depression/PHQ-2 score/Anxiety: situational depression being in hospital and holidays coming. Skin: Wound #1: Abdominal surgical incision. Wound Measurement: L: x W: x D: 15.5x 4.3x 0.5cm Wound Drainage: Amount/Type: Small amount of Seropurulent drainage. Wound bed: beefy red. Kassandra wound area: intact Wound care orders at SOC: [facility]el ag, mepilex boarder. Wound #1: Left Breast surgical incision Wound Measurement: L: x W: x D: 5cm Wound Drainage: Amount/Type: none Wound bed: NA Kassandra wound area: intact Wound care orders at SOC: none Wound 3: Left breast drain site Wound Measurement: L: x W: x D: unable to measure, drain in place, covered with gauze. Wound Drainage: Amount/Type: none Wound bed: NA Kassandra wound area: intact Client also has a PICC line in place that is being managed by [facility]. Lab/Dx: NA Medication Review: No issues, noted. List how medications are managed: client independent with meds. Home safety: several pets, and children Mobility/MAHC-10 Score: ambulates independently w/o AD. Current level of function: independent. Skilled services and care coordination provided this visit: med review and teaching, med reconcile, falls risk and teaching, skin assess, wound care, coordination of care plan with patient involvement. *RECOMMENDATION: Resume & recertify to home care with the following services: Nursing Services declined: none Payer: [employer] JUDAH Garcia 04/16/16 CERTIFICATION FOR CONTINUED SERVICES: VSOC AND PHYSICIAN ESTIMATE OF CONTINUED NEED FOR SKILLED CARE OBTAINED. ESTIMATE OF NEED = 60 DAYS. WARE TECHNICIAN documented in this encounter Plan of Treatment Upcoming Encounters Date Type Department Care Team (Late st Contact Info) Description 06/23/2024 9:00 AM SOFTWARE TECHNICIAN Telemedicine [facility] [place] [address] [place] [address] Rand Smyth MD [address] [place] [address] documented as of this encounter Visit Diagnoses Not on filedocumented in this encounter Additional Health Concerns Infection Onset Date Last Indicated Resolved Time COVID19 03/13/2020 03/13/2020 04/03/2020 3:17 AM SOFTWARE TECHNICIAN R/O COVID19 04/04/2021 04/04/2021 04/05/2021 8:29 PM SOFTWARE TECHNICIAN COVID19 04/04/2021 04/04/2021 04/24/2021 3:17 AM SOFTWARE TECHNICIAN documented as of this encounter Care Teams Lunchroom Worker Relationship Specialty Start Date End Date Rand Smyth MD [address] [place] [address] PCP - General Internal Medicine/Pediatrics 05/31/22 documented as of this encounter
--- OUTSIDE RECORDS SUMMARY | 2024-06-22 05:27 | XMS_ITS | Encounter Summary ---
Author Organization [employer] Address [address] [place] [address] Care Team Providers Care Instructor Traffic Safety Name Role Phone Rand Smyth MD Primary Care Provider + [phone] Encounter Details Date Type Department Care Team (Late st Contact Info) Description 02/03/2016 Consent for Procedure/Treatme nt [facility] INFORMED [...] st Contact Info) Description 06/23/2024 9:00 AM INDUSTRIAL EDITOR [place] [facility] [place] [address] [place] [address] Rand Smyth MD [address] [place] [address] documented as of this encounter Visit Diagnoses Not on filedocumented in this encounter Additional Health Concerns Infection Onset Date Last Indicated Resolved Time COVID19 03/13/2020 03/13/2020 04/03/2020 3:17 AM INDUSTRIAL EDITOR R/O COVID19 04/04/2021 04/04/2021 04/05/2021 8:29 PM INDUSTRIAL EDITOR COVID19 04/04/2021 04/04/2021 04/24/2021 3:17 AM INDUSTRIAL EDITOR documented as of this encounter Care Teams Instructor Traffic Safety Relationship Specialty Start Date End Date Rand Smyth MD [address] [place] [address] PCP - General Internal Medicine/Pediatrics 05/31/22 documented as of this encounter
--- OUTSIDE RECORDS SUMMARY | 2024-06-22 05:27 | XMS_ITS | Encounter Summary ---
Author Organization [employer] Address [address] [place] [address] Care Team Providers Care Communications Technologist Name Role Phone Rand Smyth MD Primary Care Provider + [phone] Encounter Details Date Type Department Care Team (Late st Contact Info) Description 09/12/2015 Consent for Procedure/Treatme nt [facility] INFORMED [...] st Contact Info) Description 06/23/2024 9:00 AM FITTING ROOM OPERATOR Telemedicine [facility] [place] [address] [place] [address] Rand Smyth MD [address] [place] [address] documented as of this encounter Visit Diagnoses Not on filedocumented in this encounter Additional Health Concerns Infection Onset Date Last Indicated Resolved Time COVID19 03/13/2020 03/13/2020 04/03/2020 3:17 AM FITTING ROOM OPERATOR R/O COVID19 04/04/2021 04/04/2021 04/05/2021 8:29 PM FITTING ROOM OPERATOR COVID19 04/04/2021 04/04/2021 04/24/2021 3:17 AM FITTING ROOM OPERATOR documented as of this encounter Care Teams Communications Technologist Relationship Specialty Start Date End Date Rand Smyth MD [address] [place] [address] PCP - General Internal Medicine/Pediatrics 05/31/22 documented as of this encounter
--- OUTSIDE RECORDS SUMMARY | 2024-06-22 05:27 | XMS_ITS | Encounter Summary ---
Author Organization [employer] Address [address] [place] [address] Care Team Providers Care Seed Corn Manager Production Name Role Phone Rand Smyth MD Primary Care Provider + [phone] Encounter Details Date Type Department Care Team (Late st Contact Info) Description 02/15/2017 Emergency Room External to [facility] Social History Tobacco Use Types Packs/Day Years Used Date Smoking Tobacco: Never Smokeless Tobacco: Never Alcohol Use Standard Drinks/Week Comments Yes 0 (1 standard drink = 0.6 oz [...] st Contact Info) Description 06/23/2024 9:00 AM HOBBING PRESS OPERATOR Telemedicine [facility] [place] [address] [place] [address] Rand Smyth MD [address] [place] [address] documented as of this encounter Visit Diagnoses Not on filedocumented in this encounter Additional Health Concerns Infection Onset Date Last Indicated Resolved Time COVID19 03/13/2020 03/13/2020 04/03/2020 3:17 AM HOBBING PRESS OPERATOR R/O COVID19 04/04/2021 04/04/2021 04/05/2021 8:29 PM HOBBING PRESS OPERATOR COVID19 04/04/2021 04/04/2021 04/24/2021 3:17 AM HOBBING PRESS OPERATOR documented as of this encounter Care Teams Seed Corn Manager Production Relationship Specialty Start Date End Date Rand Smyth MD [address] [place] [address] PCP - General Internal Medicine/Pediatrics 05/31/22 documented as of this encounter
--- OUTSIDE RECORDS SUMMARY | 2024-06-22 05:27 | XMS_ITS | Encounter Summary ---
Author Organization [employer] Address [address] [place] [address] Care Team Providers Care Sales Operations Specialist Name Role Phone Rand Smyth MD Primary Care Provider + [phone] Encounter Details Date Type Department Care Team (Late st Contact Info) Description 06/30/2015 Correspondence [facility] Radiology [address] [place] [id number] Radiology, Provider MRI SAFETY SHEET AND COMOPATIBILITY FORM Social History Tobacco Use Types Packs/Day Years [...] st Contact Info) Description 06/23/2024 9:00 AM SPECIAL SKILLS OFFICER Telemedicine [facility] [address] [place] [address] Rand Smyth MD [address] [place] [address] documented as of this encounter Visit Diagnoses Not on filedocumented in this encounter Additional Health Concerns Infection Onset Date Last Indicated Resolved Time COVID19 03/13/2020 03/13/2020 04/03/2020 3:17 AM SPECIAL SKILLS OFFICER R/O COVID19 04/04/2021 04/04/2021 04/05/2021 8:29 PM SPECIAL SKILLS OFFICER COVID19 04/04/2021 04/04/2021 04/24/2021 3:17 AM SPECIAL SKILLS OFFICER documented as of this encounter Care Teams Sales Operations Specialist Relationship Specialty Start Date End Date Rand Smyth MD [address] [place] [address] PCP - General Internal Medicine/Pediatrics 05/31/22 documented as of this encounter
--- OUTSIDE RECORDS SUMMARY | 2024-06-22 05:27 | XMS_ITS | Encounter Summary ---
Author Organization [employer] Address [address] [place] [address] Care Team Providers Care Gasoline Service Attendant Name Role Phone Rand Smyth MD Primary Care Provider + [phone] Encounter Details Date Type Department Care Team (Late st Contact Info) Description 02/06/2016 Consent for Procedure/Treatme nt [facility] INFORMED [...] st Contact Info) Description 06/23/2024 9:00 AM CITY BAILIFF Telemedicine [facility] [place] [address] [place] [address] Rand Smyth MD [address] [place] [address] documented as of this encounter Visit Diagnoses Not on filedocumented in this encounter Additional Health Concerns Infection Onset Date Last Indicated Resolved Time COVID19 03/13/2020 03/13/2020 04/03/2020 3:17 AM CITY BAILIFF R/O COVID19 04/04/2021 04/04/2021 04/05/2021 8:29 PM CITY BAILIFF COVID19 04/04/2021 04/04/2021 04/24/2021 3:17 AM CITY BAILIFF documented as of this encounter Care Teams Gasoline Service Attendant Relationship Specialty Start Date End Date Rand Smyth MD [address] [place] [address] PCP - General Internal Medicine/Pediatrics 05/31/22 documented as of this encounter
--- OUTSIDE RECORDS SUMMARY | 2024-06-22 05:27 | XMS_ITS | Clinical Summary ---
Author Organization 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 Medications LEVOTHYROXINE SODIUM (SYNTHROID ORAL) Take by mouth. Active DULoxetine (CYMBALTA) 60 mg Delayed-release capsule Take 60 mg by mouth once daily. 05/04/19 22 Active letrozole (FEMARA) 2.5 mg tablet Take 2.5 mg by mouth once daily. 04/14/20 23 Active Tirosint 112 mcg cap 1 pill six days and 2 the seventh 04/05/20 24 Active ketoconazole 2% shampoo (NIZORAL) 2 % shampooIndications :Seborrheic dermatitis Apply to scalp twice weekly. Lather on damp scalp, leave on for 5min, then rinse with water. 120 mL 06/04/19 25 Active hydrocortisone 2.5 % creamIndications:S eborrheic dermatitis Apply topically to affected area(s) 3 times daily if needed for Itching. 20 g 06/04/19 25 Active permethrin (ELIMITE) 5 % creamIndications:R ectal itching Apply topically to affected area and leave on for 8 hours then rinse off. 60 g 06/18/19 25 Active TRAZODONE HCL (TRAZODONE ORAL) Take by mouth. 025 Discontin ued(*Dara ent states no longer taking) CYCLOBENZAPRINE HCL (FLEXERIL ORAL) Take by mouth. 025 Discontin ued(*Dara ent states no longer taking) ondansetron (ZOFRAN ODT) 4 mg disintegrating tabletIndications: Norovirus Place 1 Tablet (4 mg) on the tongue every 6 hours if needed for Nausea/Vomiti ng. 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 Subclinical hypothyroidism 06/29/2015 Encounters Date Type Department Care Team Description 06/18/2024 Orders Only [facility] [address] [place] [address] Leann Peres, CLERICAL COORDINATOR, BUSINESS LIAISON OFFICER <No scans attached> 06/07/2024 12:33 PM TRACK LAYING SUPERVISOR - 06/07/2024 11:59 PM TRACK LAYING SUPERVISOR Hospital Encounter [facility] [address] [place] [address] Lab, [place] Rectal itching 06/07/2024 Travel 06/04/2024 3:00 PM TRACK LAYING SUPERVISOR Office Visit [facility] [address] [place] [phone] Leann Peres APRN, BUSINESS LIAISON OFFICER Infection 06/04/2024 Travel 05/25/2024 11:29 AM TRACK LAYING SUPERVISOR - 05/25/2024 2:43 PM TRACK LAYING SUPERVISOR Emergency [facility] [address] [place] [address] Shahzad Mahan PA Norovirus (Primary Dx) Discharge Disposition: Home Self Care 05/25/2024 Travel from Last 3 Months Social History Tobacco Use Types Packs/Day Years Used Date Smoking Tobacco: Never Smokeless Tobacco: Never Alcohol Use Standard Drinks/Week Comments Yes 0 (1 standard drink = 0.6 oz pur e alcohol) Once a month Interpersonal Safety Answer Date Record ed Are you being hit, kicked, p ushed or yelled at (see row info)? No 05/25/2024 Interpersonal Safety Abuse 12 - 18 Not on file 05/25/2024 Interpersonal Safety Ambulatory Vulnerability No t on file 05/25/2024 Comments No Sex and Gender Information Value Date Recorded Sex Assigned at Not on file Legal Sex Female 7:57 AM TRACK LAYING SUPERVISOR Gender Identity Not on file Sexual Orientation Not on file Travel History Travel Start Travel End [place] 05/20/2024 05/24/2024 Obstetrics History Last Filed Vital Signs Vital Sign Reading Time Taken Comments Blood Pressure 146/86 06/04/2024 3:41 PM TRACK LAYING SUPERVISOR Pulse 81 06/04/2024 3:41 PM TRACK LAYING SUPERVISOR Temperature 37 C (98.6 F) 06/04/2024 3:41 PM TRACK LAYING SUPERVISOR Respiratory Rate 16 05/25/2024 2:39 PM TRACK LAYING SUPERVISOR Oxygen Saturation 95% 06/04/2024 3:41 PM TRACK LAYING SUPERVISOR Inhaled Oxygen Concentration - - Weight 68 kg (150 lb) 05/25/2024 11:46 AM TRACK LAYING SUPERVISOR Height 160 cm (5' 3) 05/25/2024 11:46 AM TRACK LAYING SUPERVISOR Body Mass Index 26.57 05/25/2024 11:46 AM TRACK LAYING SUPERVISOR Plan of Treatment Upcoming Encounters Date Type Department Care Team (Late st Contact Info) Description 08/20/2024 9:30 AM CDT Office Visit [facility] [address] [place] [phone] Running Merle Pratt MD [address], [place] [phone] Health Maintenance Due Date Last Done Comments Tdap 1980 Depression screening for age 12+ 1981 HIV for age 15-65 1984 BMI (ht and wt on same day) for age 18+ 11/30/1987 Hepatitis C screening for age 18-79 11/30/1987 Zoster (shingles) series for age 50+ (1 of 2) 1988 Tetanus booster 1989 Pap test for age 21-65 1990 Colonoscopy through age 75 2014 Lipids for age 45-75 2014 Mammogram for age 45-75 2014 Pneumococcal series for age 50+ (1 of 1 - PCV) 11/30/2019 COVID-19 vaccine series (3 - Moderna risk series) 01/08/2021 12/11/2020, 11/13/2020 Influenza for age 50-64 12/28/2023 Procedures Procedure Name Priority Date/Time Associated Diagnosis Comments RESULT (REFLEX ONLY) Timed 06/06/2024 11:45 PM TRACK LAYING SUPERVISOR Rectal itching OVA + PARASITE EXAM Today 06/06/2024 1 1:45 PM TRACK LAYING SUPERVISOR Rectal itching RESULT (REFLEX ONLY) Timed 06/05/2024 9:15 AM TRACK LAYING SUPERVISOR Rectal itching OVA + PARASITE EXAM Today 06/05/2024 9 :15 AM TRACK LAYING SUPERVISOR Rectal itching RESULT (REFLEX ONLY) Timed 06/04/2024 8:30 PM TRACK LAYING SUPERVISOR Rectal itching OVA + PARASITE EXAM Today 06/04/2024 8 :30 PM TRACK LAYING SUPERVISOR Rectal itching STOOL PCR CUY STAT 05/25/2024 12:44 PM TRACK LAYING SUPERVISOR EXTRA TUBE GOLD/SST Today 05/25/2024 1 2:33 PM TRACK LAYING SUPERVISOR EXTRA TUBE BLUE Today 05/25/2024 12:33 PM TRACK LAYING SUPERVISOR LIPASE STAT 05/25/2024 12:33 PM TRACK LAYING SUPERVISOR CBC WITH AUTO DIFFERENTIAL STAT 05/25/2024 12:33 PM TRACK LAYING SUPERVISOR MAGNESIUM STAT 05/25/2024 12:33 PM TRACK LAYING SUPERVISOR COMP METABOLIC PANEL STAT 05/25/2024 12:33 PM TRACK LAYING SUPERVISOR CBC WITH AUTO DIFFERENTIAL STAT 05/25/2024 12:33 PM TRACK LAYING SUPERVISOR COVID PANEL (COVID,FLU,RSV) CUY STAT 05/25/2024 11:37 AM TRACK LAYING SUPERVISOR from Last 3 Months Results * RESULT (REFLEX ONLY) (06/06/2024 11:45 PM TRACK LAYING SUPERVISOR) Only the most recent of3 resultswithin the time period is included. Result 1 Comment 06/18/2024 2:08 PM TRACK LAYING SUPERVISOR [facility] Comment: No ova, cysts, or parasites seen. One negative specimen does not rule out the possibility of a parasitic infection. Stool STOOL SPECIMEN / Unknown Non-Blood / Unknown 06/06/2024 11:45 PM TRACK LAYING SUPERVISOR 06/07/2024 1:56 PM TRACK LAYING SUPERVISOR Narrative [facility] ([facility]) - 06/18/2024 2:08 PM TRACK LAYING SUPERVISOR Performed at: [address] [place] [address] [address], [place], [place] [id number] Cloth Opener Hand: Maty Whitt MD, Phone: [phone] Leann L Peres CLERICAL COORDINATOR, BUSINESS LIAISON OFFICER LABORATORY Final Result Performing Organization Address City/[facility]/ZIP Co de Phone Number [facility]) [address] [place] [address], * OVA + PARASITE EXAM (06/06/2024 11:45 PM TRACK LAYING SUPERVISOR) Only the most recent of3 resultswithin the time period is included. Ova + Parasite Exam Final report 06/18/2024 2:08 PM TRACK LAYING SUPERVISOR [facility] Comment: These results were obtained using wet preparation(s) and trichrome stained smear. This test does not include testing for Cryptosporidium parvum, Cyclospora, or Microsporidia. Stool STOOL SPECIMEN / Unknown Non-Blood / Unknown 06/06/2024 11:45 PM TRACK LAYING SUPERVISOR 06/07/2024 1:56 PM TRACK LAYING SUPERVISOR Narrative [facility] - 06/18/2024 2:08 PM TRACK LAYING SUPERVISOR Performed at: [address] [place] [address] [address], [place], [place] [id number] Cloth Opener Hand: Maty Whitt MD, Phone: [phone] Leann Peres APRN, CNP SEND OUTS Final Result Performing Organization Address City/[facility] Co de Phone Number [facility]) [address] [place] [address], * (ABNORMAL) STOOL PCR CUY (05/25/2024 12:44 PM TRACK LAYING SUPERVISOR) Pathologist [facility] Campylobacter NOT Detected NOT Detected 05/25/2024 2:13 PM TRACK LAYING SUPERVISOR [facility] Clostridium difficile toxin A/B NOT Detected NOT Detected 05/25/2024 2:13 PM TRACK LAYING SUPERVISOR [facility] Plesiomonas shigelloides NOT Detected NOT Detected 05/25/2024 2:13 PM TRACK LAYING SUPERVISOR [facility] Salmonella NOT Detected NOT Detected 05/25/2024 2:13 PM TRACK LAYING SUPERVISOR [facility] Vibrio species NOT Detected NOT Detected 05/25/2024 2:13 PM TRACK LAYING SUPERVISOR [facility] Vibrio cholerae NOT Detected NOT Detected 05/25/2024 2:13 PM TRACK LAYING SUPERVISOR [facility] Yersinia enterocolitica NOT Detected NOT Detected 05/25/2024 2:13 PM TRACK LAYING SUPERVISOR [facility] E. coli enteroaggregative (EAEC) NOT Detected NOT Detected 05/25/2024 2:13 PM TRACK LAYING SUPERVISOR [facility] E. coli enteropathogenic (EPEC) NOT Detected NOT Detected 05/25/2024 2:13 PM TRACK LAYING SUPERVISOR [facility] E. coli enterotoxigenic (ETEC) lt/st NOT Detected NOT Detected 05/25/2024 2:13 PM TRACK LAYING SUPERVISOR [facility] Shiga-like toxin-producing E. coli (STEC) stx1/stx2 NOT Detected NOT Detected 05/25/2024 2:13 PM TRACK LAYING SUPERVISOR [facility] E. coli O157 05/25/2024 2:13 PM TRACK LAYING SUPERVISOR [facility] Comment:N/A Shigella/Enteroinvas carey E. coli (EIEC) NOT Detected NOT Detected 05/25/2024 2:13 PM TRACK LAYING SUPERVISOR [facility] Cryptosporidium NOT Detected NOT Detected 05/25/2024 2:13 PM TRACK LAYING SUPERVISOR [facility] Cyclospora cayetanensis NOT Detected NOT Detected 05/25/2024 2:13 PM TRACK LAYING SUPERVISOR [facility] Entamoeba histolytica NOT Detected NOT Detected 05/25/2024 2:13 PM TRACK LAYING SUPERVISOR [facility] Giardia lamblia NOT Detected NOT Detected 05/25/2024 2:13 PM TRACK LAYING SUPERVISOR [facility] Adenovirus F 40/41 NOT Detected NOT Detected 05/25/2024 2:13 PM TRACK LAYING SUPERVISOR [facility] Astrovirus NOT Detected NOT Detected 05/25/2024 2:13 PM TRACK LAYING SUPERVISOR [facility] Norovirus GI/GII Detected(A) NOT Detected 05/25/2024 2:13 PM [facility] Comment:Apr 2023 [employer] has identified a potential signal of increased false positive Norovirus results when using the [employer] Gastrointestinal (GI) Panel. If a positive Norovirus result is inconsistent with clinical presentation, please notify the laboratory DAVID if further confirmation testing is requested. Rotavirus A NOT Detected NOT Detected 05/25/2024 2:13 PM TRACK LAYING SUPERVISOR [facility] Sapovirus NOT Detected NOT Detected 05/25/2024 2:13 PM TRACK LAYING SUPERVISOR [facility] Stool STOOL SPECIMEN / Unknown Non-Blood / Unknown 05/25/2024 12:44 PM TRACK LAYING SUPERVISOR 05/25/2024 12:45 PM TRACK LAYING SUPERVISOR Shahzad CORDERO MICROBIOLOGY Final Result [facility] [address] [place] [address], * (ABNORMAL) CBC WITH AUTO DIFFERENTIAL (05/25/2024 12:33 PM TRACK LAYING SUPERVISOR) WHITE BLOOD COUNT 10.4 4.0 - 11.0 thou/cu mm 05/25/2024 12:46 PM [facility] RED BLOOD COUNT 4.26 3.87 - 5.03 mil/cu mm 05/25/2024 12:46 PM [facility] HEMOGLOBIN 13.2 12.2 - 15.5 g/dL 05/25/2024 12:46 PM [facility] HEMATOCRIT 38.6 34.9 - 44.5 % 05/25/2024 12:46 PM [facility] MCV 91 82 - 96 fL 05/25/2024 12:46 PM [facility] MCH 31.0 28.0 - 33.0 pg 05/25/2024 12:46 PM [facility] MCHC 34.2 32.0 - 35.9 g/dL 05/25/2024 12:46 PM [facility] RDW 13.0 10.0 - 15.0 % 05/25/2024 12:46 PM [facility] PLATELET COUNT 211 150 - 450 thou/cu mm 05/25/2024 12:46 PM [facility] NRBC 0.0 % 05/25/2024 12:46 PM [facility] % NEUT 91.6(H) % 05/25/2024 12:46 PM [facility] % LYMPH 4.6(L) % 05/25/2024 12:46 PM TRACK LAYING SUPERVISOR [facility] % MONO 2.7 % 05/25/2024 12:46 PM TRACK LAYING SUPERVISOR [facility] % EOS 0.6 % 05/25/2024 12:46 PM TRACK LAYING SUPERVISOR [facility] % BASO 0.2 % 05/25/2024 12:46 PM TRACK LAYING SUPERVISOR [facility] ABSOLUTE NEUTROPHILS 9.6(H) 1.7 - 9.5 thou/cu mm 05/25/2024 12:46 PM TRACK LAYING SUPERVISOR [facility] ABSOLUTE LYMPHOCYTES 0.5 0.3 - 4.4 thou/cu mm 05/25/2024 12:46 PM TRACK LAYING SUPERVISOR [facility] ABSOLUTE MONOCYTES 0.3 0.1 - 1.4 thou/cu mm 05/25/2024 12:46 PM [facility] ABSOLUTE EOSINOPHILS 0.06 0.00 - 0.70 thou/cu mm 05/25/2024 12:46 PM TRACK LAYING SUPERVISOR [facility] ABSOLUTE BASOPHILS 0.0 0.0 - 0.3 thou/cu mm 05/25/2024 12:46 PM [facility] % IMMATURE GRAN (METAS,MYELOS,MS OS) 0.3 % 05/25/2024 12:46 PM [facility] ABSOLUTE IMMATURE GRANULOCYTES(MET ,MYELOS,PROS) 0.0 <0.3 thou/cu mm 05/25/2024 12:46 PM [facility] MPV 11.0(H) 7.0 - 10.4 fL 05/25/2024 12:46 PM TRACK LAYING SUPERVISOR [facility] Blood BLOOD SPECIMEN / Unknown Venipuncture / Unknown 05/25/2024 12:33 PM TRACK LAYING SUPERVISOR 05/25/2024 12:40 PM TRACK LAYING SUPERVISOR Shahzad CORDERO HEMATOLOGY Final Result [facility] [address] [place] [address], [place] [phone] * EXTRA TUBE GOLD/SST (05/25/2024 12:33 PM TRACK LAYING SUPERVISOR) Blood BLOOD SPECIMEN / Unknown Venipuncture / Unknown 05/25/2024 12:33 PM TRACK LAYING SUPERVISOR 05/25/2024 1:29 PM TRACK LAYING SUPERVISOR Provider Referring LABORATORY Final Result Performing Organization Address City/[facility]/ZIP Co de Phone Number [facility] [address] [facility] [place] [address], * EXTRA TUBE BLUE (05/25/2024 12:33 PM TRACK LAYING SUPERVISOR) Blood BLOOD SPECIMEN / Unknown IV Start / Unknown 05/25/2024 12:33 PM TRACK LAYING SUPERVISOR 05/25/2024 1:15 PM TRACK LAYING SUPERVISOR Provider Referring LABORATORY Final Result Performing Organization Address City/[facility]/ZIP Co de Phone Number [facility] [address] [facility] [place] [address], * MAGNESIUM (05/25/2024 12:33 PM TRACK LAYING SUPERVISOR) MAGNESIUM 1.8 1.6 - 2.2 mg/dL 05/25/2024 12:58 PM TRACK LAYING SUPERVISOR [facility] Blood BLOOD SPECIMEN / Unknown Venipuncture / Unknown 05/25/2024 12:33 PM TRACK LAYING SUPERVISOR 05/25/2024 12:40 PM TRACK LAYING SUPERVISOR Shahzad CORDERO CHEMISTRY Final Result Performing Organization Address City/[facility]/ZIP Co de Phone Number [facility] [address] [facility] [place] [address], * LIPASE (05/25/2024 12:33 PM TRACK LAYING SUPERVISOR) LIPASE CUY 198.0 10.0 - 300.0 IU/L 05/25/2024 12:58 PM TRACK LAYING SUPERVISOR [facility] Blood BLOOD SPECIMEN / Unknown Venipuncture / Unknown 05/25/2024 12:33 PM TRACK LAYING SUPERVISOR 05/25/2024 12:40 PM TRACK LAYING SUPERVISOR Shahzad CORDERO CHEMISTRY Final Result [facility] [address] [facility] [place] [address], [place] [phone] * (ABNORMAL) COMP METABOLIC PANEL (05/25/2024 12:33 PM TRACK LAYING SUPERVISOR) SODIUM 132(L) 137 - 145 mmol/L 05/25/2024 12:58 PM [facility] POTASSIUM 4.1 3.5 - 5.0 mmol/L 05/25/2024 12:58 PM [facility] CHLORIDE 100 98 - 107 mmol/L 05/25/2024 12:58 PM [facility] CO2,TOTAL 20(L) 22 - 30 mmol/L 05/25/2024 12:58 PM [facility] GLUCOSE 115(H) >65 - 100 mg/dL 05/25/2024 12:58 PM [facility] CALCIUM 9.7 8.4 - 10.2 mg/dL 05/25/2024 12:58 PM [facility] BUN CUY 13 7 - 17 mg/dL 05/25/2024 12:58 PM [facility] CREATININE 0.79 0.52 - 1.04 mg/dL 05/25/2024 12:58 PM [facility] ALBUMIN 4.9 3.6 - 5.0 g/dL 05/25/2024 12:58 PM [facility] PROTEIN,TOTAL 8.4(H) 6.3 - 8.2 g/dL 05/25/2024 12:58 PM [facility] GLOBULIN 3.5 2.4 - 3.5 g/dL 05/25/2024 12:58 PM [facility] A/G RATIO 1.4 05/25/2024 12:58 PM [facility] ALK PHOSPHATASE CUY 100 37 - 126 IU/L 05/25/2024 12:58 PM [facility] AST (SGOT) CUY 41(H) 14 - 36 IU/L 05/25/2024 12:58 PM [facility] ANION GAP CUY 16.1 5 - 18 mmol/L 05/25/2024 12:58 PM [facility] BUN/CREAT RATIO CUY 16 05/25/2024 12:58 PM [facility] BILIRUBIN,TOTAL 1.0 0.2 - 1.3 mg/dL 05/25/2024 12:58 PM [facility] ALTv (SGPT) 48(H) <35 U/L 05/25/2024 12:58 PM [facility] eGFR 89(L) >90 mL/min/1.7 3m2 05/25/2024 12:58 PM [facility] Comment:As of 2021, eG FR is calculated by the CKD-EPI creatinine equation without race adjustment. eGFR can be influenced by muscle mass, exercise, and diet. The reported eGFR is an estimation only and is only applicable if the renal function is stable. Blood BLOOD SPECIMEN / Unknown Venipuncture / Unknown 05/25/2024 12:33 PM TRACK LAYING SUPERVISOR 05/25/2024 12:40 PM TRACK LAYING SUPERVISOR Shahzad CORDERO CHEMISTRY Final Result [facility] [address] [place] [address], * COVID PANEL (COVID,FLU,RSV) CU (05/25/2024 11:37 AM TRACK LAYING SUPERVISOR) SARS-CoV-2 Negative Negative 05/25/2024 12:23 PM [facility] INFLUENZA A PCR Negative Negative 12:23 PM [facility] INFLUENZA B PCR Negative Negative 12:23 PM [facility] RESPIRATORY SYNCYTIAL VIRUS PCR Negative Negative 05/25/2024 12:23 PM [facility] Swab SPECIMEN FROM NASAL FOSSAE / Unknown Non-Blood / Unknown 05/25/2024 11:37 AM TRACK LAYING SUPERVISOR 05/25/2024 11:38 AM TRACK LAYING SUPERVISOR Narrative [facility] - 05/25/2024 12:23 PM TRACK LAYING SUPERVISOR Negative results do not preclude SARS-CoV-2, influenza or RSV infection and should not be used as the sole basis for treatment or other patient management decisions. Shahzad CORDERO MICROBIOLOGY Final Result [facility] [address] [facility] [place] [address], [place] [phone] from Last 3 Months Insurance [employer] [facility] Care Teams Child Development Instructor Relationship Specialty Start Date End Date Josh Manzanares MD [address] [place] [address] PCP - General 06/10/23
--- OUTSIDE RECORDS SUMMARY | 2024-06-22 05:27 | XMS_ITS | Encounter Summary ---
Author Organization [employer] Address [address] [place] [address] Care Team Providers Care Electrical Design Engineer Name Role Phone Rand Smyth MD Primary Care Provider + [phone] Encounter Details Date Type Department Care Team (Late st Contact Info) Description 01/11/2016 Consent for Procedure/Treatme nt [facility] INFORMED [...] st Contact Info) Description 06/23/2024 9:00 AM ACID CRANE OPERATOR Telemedicine [facility] [address] [place] [address] Rand Smyth MD [address] [place] [address] documented as of this encounter Visit Diagnoses Not on filedocumented in this encounter Additional Health Concerns Infection Onset Date Last Indicated Resolved Time COVID19 03/13/2020 03/13/2020 04/03/2020 3:17 AM ACID CRANE OPERATOR R/O COVID19 04/04/2021 04/04/2021 04/05/2021 8:29 PM ACID CRANE OPERATOR COVID19 04/04/2021 04/04/2021 04/24/2021 3:17 AM ACID CRANE OPERATOR documented as of this encounter Care Teams Electrical Design Engineer Relationship Specialty Start Date End Date Rand Smyth MD [address] [place] [address] PCP - General Internal Medicine/Pediatrics 05/31/22 documented as of this encounter
--- OUTSIDE RECORDS SUMMARY | 2024-06-22 05:27 | XMS_ITS | Encounter Summary ---
Author Organization [employer] Address [address] [place] [address] Care Team Providers Care Sales Ledger Clerk Name Role Phone Rand Smyth MD Primary Care Provider [phone] Encounter Details Date Type Department Care Team (Late st Contact Info) Description 05/21/2016 Consent for Procedure/Treatme nt [facility] CONSENT FOR RADIATION THERAPY Social History Tobacco Use Types Packs/Day Years [...] st Contact Info) Description 06/23/2024 9:00 AM DATABASE DBA Telemedicine [facility] [address] [place] [address] Rand Smyth MD [address] [place] [address] documented as of this encounter Visit Diagnoses Not on filedocumented in this encounter Additional Health Concerns Infection Onset Date Last Indicated Resolved Time COVID19 03/13/2020 03/13/2020 04/03/2020 3:17 AM DATABASE DBA R/O COVID19 04/04/2021 04/04/2021 04/05/2021 8:29 PM DATABASE DBA COVID19 04/04/2021 04/04/2021 04/24/2021 3:17 AM DATABASE DBA documented as of this encounter Care Teams Sales Ledger Clerk Relationship Specialty Start Date End Date Rand Smyth MD [address] [place] [address] PCP - General Internal Medicine/Pediatrics 05/31/22 documented as of this encounter
--- OUTSIDE RECORDS SUMMARY | 2024-06-22 05:27 | XMS_ITS | Encounter Summary ---
Author Organization [employer] [employer] Address [address] [place] [address] Care Team Providers Care Christmas Tree Farm Worker Name Role Phone Rand Smyth MD Primary Care Provider + [phone] Encounter Details Date Type Department Care Team (Late st Contact Info) Description 05/27/2014 Scanned History External to Transferred Record, Provider [facility] Social History Tobacco Use Types Packs/Day Years [...] st Contact Info) Description 06/23/2024 9:00 AM PIE CRUST MIXER Telemedicine [facility] [place] [address] [place] [address] Rand Smyth MD [address] [place] [address] documented as of this encounter Visit Diagnoses Not on filedocumented in this encounter Additional Health Concerns Infection Onset Date Last Indicated Resolved Time COVID19 03/13/2020 03/13/2020 04/03/2020 3:17 AM PIE CRUST MIXER R/O COVID19 04/04/2021 04/04/2021 04/05/2021 8:29 PM PIE CRUST MIXER COVID19 04/04/2021 04/04/2021 04/24/2021 3:17 AM PIE CRUST MIXER documented as of this encounter Care Teams Christmas Tree Farm Worker Relationship Specialty Start Date End Date Rand Smyth MD [address] [place] [address] PCP - General Internal Medicine/Pediatrics 05/31/22 documented as of this encounter
--- OUTSIDE RECORDS SUMMARY | 2024-06-22 05:27 | XMS_ITS | Encounter Summary ---
Author Organization [employer] Address [address] [place] [address] Care Team Providers Care Steel Wool Machine Operator Name Role Phone Rand Smyth MD Primary Care Provider + [phone] Encounter Details Date Type Department Care Team (Late Contact Info) Description 05/10/[address] [phone] Josh Manzanares MD [address] [facility] [place] [address] 04-18-16 HOME HEALTH PLAN OF TREATMENT Social History Tobacco Use Types Packs/Day Years [...] Encounters Date Type Department Care Team (Late Contact Info) Description 06/23/2024 9:00 AM DELIVERER OUTSIDE Telemedicine [facility] [place] [address] [place] [address] Rand Smyth MD [address] [place] [address] documented as of this encounter Visit Diagnoses Not on filedocumented in this encounter Additional Health Concerns Infection Onset Date Last Indicated Resolved Time COVID19 03/13/2020 03/13/2020 04/03/2020 3:17 AM DELIVERER OUTSIDE R/O COVID19 04/04/2021 04/04/2021 04/05/2021 8:29 PM DELIVERER OUTSIDE COVID19 04/04/2021 04/04/2021 04/24/2021 3:17 AM DELIVERER OUTSIDE documented as of this encounter Care Teams Steel Wool Machine Operator Relationship Specialty Start Date End Date Rand Smyth MD [address] [place] [address] PCP - General Internal Medicine/Pediatrics 05/31/22 documented as of this encounter
--- OUTSIDE RECORDS SUMMARY | 2024-06-22 05:27 | XMS_ITS | Encounter Summary ---
Author Organization [employer] Address [address] [place] [address] Care Team Providers Care Wellness Trainer Name Role Phone Rand Smyth MD Primary Care Provider [phone] Encounter Details Date Type Department Care Team (Late Contact Info) Description 05/10/[address] [place] [address] Josh Manzanares MD [address] [facility] [place] [id number] INTERIM ORDER REPORT Social History Tobacco Use Types Packs/Day Years [...] (Late Contact Info) Description 06/23/2024 9:00 AM BODY PAINTER Telemedicine [facility] [address] [place] [address] Rand Smyth MD [address] [facility] [place] [address] documented as of this encounter Visit Diagnoses Not on filedocumented in this encounter Additional Health Concerns Infection Onset Date Last Indicated Resolved Time COVID19 03/13/2020 03/13/2020 04/03/2020 3:17 AM BODY PAINTER R/O COVID19 04/04/2021 04/04/2021 04/05/2021 8:29 PM BODY PAINTER COVID19 04/04/2021 04/04/2021 04/24/2021 3:17 AM BODY PAINTER documented as of this encounter Care Teams Wellness Trainer Relationship Specialty Start Date End Date Rand Smyth MD [address] [place] [address] PCP - General Internal Medicine/Pediatrics 05/31/22 documented as of this encounter
--- OUTSIDE RECORDS SUMMARY | 2024-06-22 05:27 | XMS_ITS | Encounter Summary ---
Author Organization [email or web address] Address [address] [place] [address] Care Team Providers Care Furniture Assembler And Installer Name Role Phone Rand Smyth MD Primary Care Provider + [phone] Encounter Details Date Type Department Care Team (Late st Contact Info) Description 05/14/2016 Home Visit [facility] [address] [place] [address], [address] [place] [address] Angela Raymond RN [address] [place] [id number] Social History Tobacco Use Types Packs/Day Years [...] Progress Notes * Angela Raymond RN - 05/14/2016 9:32 PM CST S - Agency Discharge summary. B - Client has been seen for wound care. A - Client was recently seen in the wound clinic for follow up and hypergranulation was reduced allowing wound to be reduced significantly. Clients abdominal wound has been reduced to 2cm x 0.5 with minimal to no drainage. Client is able to remove dressing and shower independently. Wound is still to be covered with bandage for protection. She is able to do this independently as it will be for only a few more days. She has been able to get out of the home more and has been feeling so much better, thus no longer being homebound. R - Discharge from agency. [employer] CTOR ORACLE DATABASE documented in this encounter Plan of Treatment Upcoming Encounters Date Type Department Care Team (Late st Contact Info) Description 06/23/2024 9:00 AM DIRECTOR ORACLE DATABASE Telemedicine [facility] [place] [address] [address] Rand Smyth MD [address] [place] [address] documented as of this encounter Visit Diagnoses Not on filedocumented in this encounter Additional Health Concerns Infection Onset Date Last Indicated Resolved Time COVID19 03/13/2020 03/13/2020 04/03/2020 3:17 AM DIRECTOR ORACLE DATABASE R/O COVID19 04/04/2021 04/04/2021 04/05/2021 8:29 PM DIRECTOR ORACLE DATABASE COVID19 04/04/2021 04/04/2021 04/24/2021 3:17 AM DIRECTOR ORACLE DATABASE documented as of this encounter Care Teams Furniture Assembler And Installer Relationship Specialty Start Date End Date Rand Smyth MD [address] [place] [address] PCP - General Internal Medicine/Pediatrics 05/31/22 documented as of this encounter
--- OUTSIDE RECORDS SUMMARY | 2024-06-22 05:27 | XMS_ITS | Encounter Summary ---
Author Organization [email or web address] Address [address] [place] [address] Care Team Providers Care Burial Needs Salesperson Name Role Phone Rand Smyth MD Primary Care Provider [phone] Encounter Details Date Type Department Care Team (Late st Contact Info) Description 04/12/2016 Consent for Procedure/Treatme nt [facility] Department INFORMED CONSENT RECORD Social History Tobacco [...] st Contact Info) Description 06/23/2024 9:00 AM REPAIRER WELDING EQUIPMENT Telemedicine [facility] [address] [place] [address] Rand Smyth MD [address] [place] [address] documented as of this encounter Visit Diagnoses Not on filedocumented in this encounter Additional Health Concerns Infection Onset Date Last Indicated Resolved Time COVID19 03/13/2020 03/13/2020 04/03/2020 3:17 AM REPAIRER WELDING EQUIPMENT R/O COVID19 04/04/2021 04/04/2021 04/05/2021 8:29 PM REPAIRER WELDING EQUIPMENT COVID19 04/04/2021 04/04/2021 04/24/2021 3:17 AM REPAIRER WELDING EQUIPMENT documented as of this encounter Care Teams Burial Needs Salesperson Relationship Specialty Start Date End Date Rand Smyth MD [address] [place] [address] PCP - General Internal Medicine/Pediatrics 05/31/22 documented as of this encounter
--- OUTSIDE RECORDS SUMMARY | 2024-06-22 05:27 | XMS_ITS | Encounter Summary ---
Author Organization [facility] Address [address] [place] [address] Care Team Providers Care Switch Tender Name Role Phone Rand Smyth MD Primary Care Provider [phone] Encounter Details Date Type Department Care Team (Late st Contact Info) Description 11/03/2015 Correspondence [facility] at [address] [address] Nico Portillo MD [address] [place] [address] PHYSICIAN REPORT NEOPLASTIC DISEASE Social History Tobacco Use Types Packs/Day Years [...] st Contact Info) Description 06/23/2024 9:00 AM REVIEW SCHEDULING COORDINATOR Telemedicine [facility] [place] [address] [place], [place] [id number] Rand Smyth MD [address] [place] [address] documented as of this encounter Visit Diagnoses Not on filedocumented in this encounter Additional Health Concerns Infection Onset Date Last Indicated Resolved Time COVID19 03/13/2020 03/13/2020 04/03/2020 3:17 AM REVIEW SCHEDULING COORDINATOR R/O COVID19 04/04/2021 04/04/2021 04/05/2021 8:29 PM REVIEW SCHEDULING COORDINATOR COVID19 04/04/2021 04/04/2021 04/24/2021 3:17 AM REVIEW SCHEDULING COORDINATOR documented as of this encounter Care Teams Switch Tender Relationship Specialty Start Date End Date Rnad Smyth MD [address] [place] [address] PCP - General Internal Medicine/Pediatrics 05/31/22 documented as of this encounter
--- OUTSIDE RECORDS SUMMARY | 2024-06-22 05:27 | XMS_ITS | Encounter Summary ---
Author Organization [employer] Address [address] [place] [address] Care Team Providers Care Camp Counselor Name Role Phone Radn Smyth MD Primary Care Provider + [phone] Encounter Details Date Type Department Care Team (Late st Contact Info) Description 12/27/2015 Consent for Procedure/Treatme nt [facility] INFORMED [...] st Contact Info) Description 06/23/2024 9:00 AM SALVATION ARMY OFFICER [place]medicine [facility] [address] [place] [address] Rand Smyth MD [address] [place] [address] documented as of this encounter Visit Diagnoses Not on filedocumented in this encounter Additional Health Concerns Infection Onset Date Last Indicated Resolved Time COVID19 03/13/2020 03/13/2020 04/03/2020 3:17 AM SALVATION ARMY OFFICER R/O COVID19 04/04/2021 04/04/2021 04/05/2021 8:29 PM SALVATION ARMY OFFICER COVID19 04/04/2021 04/04/2021 04/24/2021 3:17 AM SALVATION ARMY OFFICER documented as of this encounter Care Teams Camp Counselor Relationship Specialty Start Date End Date Rand Smyth MD [address] [place] [address] PCP - General Internal Medicine/Pediatrics 05/31/22 documented as of this encounter
--- OUTSIDE RECORDS SUMMARY | 2024-06-22 05:27 | XMS_ITS | Encounter Summary ---
Author Organization [employer] Address [address] [place] [address] Care Team Providers Care Hand Ii Cutter Name Role Phone Rand Smyth MD Primary Care Provider [phone] Encounter Details Date Type Department Care Team (Late st Contact Info) Description 02/07/2017 Consent for Procedure/Treatme nt [facility] Department INFORMED CONSENT RECORD Social History [...] st Contact Info) Description 06/23/2024 9:00 AM WINDOW SYSTEMS ADMINISTRATOR Telemedicine [facility] [address] [place] [address] Rand Smyth MD [address] [place] [address] documented as of this encounter Visit Diagnoses Not on filedocumented in this encounter Additional Health Concerns Infection Onset Date Last Indicated Resolved Time COVID19 03/13/2020 03/13/2020 04/03/2020 3:17 AM WINDOW SYSTEMS ADMINISTRATOR R/O COVID19 04/04/2021 04/04/2021 04/05/2021 8:29 PM WINDOW SYSTEMS ADMINISTRATOR COVID19 04/04/2021 04/04/2021 04/24/2021 3:17 AM WINDOW SYSTEMS ADMINISTRATOR documented as of this encounter Care Teams Hand Ii Cutter Relationship Specialty Start Date End Date Rand Smyth MD [address] [place] [address] PCP - General Internal Medicine/Pediatrics 05/31/22 documented as of this encounter
--- OUTSIDE RECORDS SUMMARY | 2024-06-22 05:27 | XMS_ITS | Encounter Summary ---
Author Organization [facility] Address [address] [place] [address] Care Team Providers Care Print Production Coordinator Name Role Phone Rand Smyth MD Primary Care Provider + [phone] Encounter Details Date Type Department Care Team (Late st Contact Info) Description 06/14/2015 Scanned History External to Transferred Record, Provider [...] st Contact Info) Description 06/23/2024 9:00 AM OFFICE TECHNOLOGY PROFESSOR Telemedicine [facility] [address] [place] [address] Radn Smyth MD [address] [place] [address] documented as of this encounter Visit Diagnoses Not on filedocumented in this encounter Additional Health Concerns Infection Onset Date Last Indicated Resolved Time COVID19 03/13/2020 03/13/2020 04/03/2020 3:17 AM OFFICE TECHNOLOGY PROFESSOR R/O COVID19 04/04/2021 04/04/2021 04/05/2021 8:29 PM OFFICE TECHNOLOGY PROFESSOR COVID19 04/04/2021 04/04/2021 04/24/2021 3:17 AM OFFICE TECHNOLOGY PROFESSOR documented as of this encounter Care Teams Print Production Coordinator Relationship Specialty Start Date End Date Rand Smyth MD [address] [place] [address] PCP - General Internal Medicine/Pediatrics 05/31/22 documented as of this encounter
--- OUTSIDE RECORDS SUMMARY | 2024-06-22 05:27 | XMS_ITS | Encounter Summary ---
Author Organization [employer] [facility] Address [address] [place] [address] Care Team Providers Care Choir Member Name Role Phone Rand Smyth MD Primary Care Provider + [phone] Encounter Details Date Type Department Care Team (Late st Contact Info) Description 02/04/2016 Consent for Procedure/Treatme nt [facility] INFORMED [...] st Contact Info) Description 06/23/2024 9:00 AM CONSERVATION SPECIALIST Telemedicine [facility] [address] [place] [address] Rand Smyth MD [address] [place] [address] documented as of this encounter Visit Diagnoses Not on filedocumented in this encounter Additional Health Concerns Infection Onset Date Last Indicated Resolved Time COVID19 03/13/2020 03/13/2020 04/03/2020 3:17 AM CONSERVATION SPECIALIST R/O COVID19 04/04/2021 04/04/2021 04/05/2021 8:29 PM CONSERVATION SPECIALIST COVID19 04/04/2021 04/04/2021 04/24/2021 3:17 AM CONSERVATION SPECIALIST documented as of this encounter Care Teams Choir Member Relationship Specialty Start Date End Date Rand Smyth MD [address] [place] [address] PCP - General Internal Medicine/Pediatrics 05/31/22 documented as of this encounter
--- OUTSIDE RECORDS SUMMARY | 2024-06-22 05:28 | XMS_ITS | Encounter Summary ---
Author Organization [facility] Address [address] [place] [address] Care Team Providers Care Flying Ii Instructor Name Role Phone Rand Smyth MD Primary Care Provider [phone] Encounter Details Date Type Department Care Team (Late st Contact Info) Description 08/23/2015 Scanned History [facility] at [address] [address] Brigitte Trejo MS, [facility] [address] [place] [address] GENETIC COUNSELOR PATIENT FAMILY TREE Social History Tobacco Use Types Packs/Day Years [...] st Contact Info) Description 06/23/2024 9:00 AM HEAD PUMPER Telemedicine [facility] [place] [address] [place] [address] Rand Smyth MD [address] [place] [address] documented as of this encounter Visit Diagnoses Not on filedocumented in this encounter Additional Health Concerns Infection Onset Date Last Indicated Resolved Time COVID19 03/13/2020 03/13/2020 04/03/2020 3:17 AM HEAD PUMPER R/O COVID19 04/04/2021 04/04/2021 04/05/2021 8:29 PM HEAD PUMPER COVID19 04/04/2021 04/04/2021 04/24/2021 3:17 AM HEAD PUMPER documented as of this encounter Care Teams Flying Ii Instructor Relationship Specialty Start Date End Date Rand Smyth MD [address] [place] [address] PCP - General Internal Medicine/Pediatrics 05/31/22 documented as of this encounter
--- OUTSIDE RECORDS SUMMARY | 2024-06-22 05:28 | XMS_ITS | Encounter Summary ---
Author Organization [employer] Address [address] [place] [address] Care Team Providers Care Skein Straightener Name Role Phone Rand Smyth MD Primary Care Provider [phone] Encounter Details Date Type Department Care Team (Late st Contact Info) Description 03/14/2016 Correspondence [place] [address] [place] [address] Josh Manzanares MD [address] [facility] [place] [address] PHYSICIANS INTERIM ORDER REPORT Social History Tobacco Use [...] (Late Contact Info) Description 06/23/2024 9:00 AM FIBERGLASS BOAT PARTS FINISHER Telemedicine [facility] [place] [address] [place] [address] Rand Smyth MD [address] [facility] [place] [address] documented as of this encounter Visit Diagnoses Not on filedocumented in this encounter Additional Health Concerns Infection Onset Date Last Indicated Resolved Time COVID19 03/13/2020 03/13/2020 04/03/2020 3:17 AM FIBERGLASS BOAT PARTS FINISHER R/O COVID19 04/04/2021 04/04/2021 04/05/2021 8:29 PM FIBERGLASS BOAT PARTS FINISHER COVID19 04/04/2021 04/04/2021 04/24/2021 3:17 AM FIBERGLASS BOAT PARTS FINISHER documented as of this encounter Care Teams Skein Straightener Relationship Specialty Start Date End Date Rand Smyth MD [address] [place] [address] PCP - General Internal Medicine/Pediatrics 05/31/22 documented as of this encounter
--- OUTSIDE RECORDS SUMMARY | 2024-06-22 05:28 | XMS_ITS | Encounter Summary ---
Author Organization [employer] Address [address] [place] [address] Care Team Providers Care Equipment Operating Engineer Name Role Phone Rand Smyth MD Primary Care Provider + [phone] Encounter Details Date Type Department Care Team (Late st Contact Info) Description 07/03/2016 Consent for Procedure/Treatme nt [facility] [address] [facility], [address] [place] [address] Kenya Martines FACIAL CONSENT FORM Social History Tobacco Use Types Packs/Day [...] st Contact Info) Description 06/23/2024 9:00 AM NICKING MACHINE OPERATOR Telemedicine [facility] [place] [address] [place] [address] Rand Smyth MD [address] [place] [address] documented as of this encounter Visit Diagnoses Not on filedocumented in this encounter Additional Health Concerns Infection Onset Date Last Indicated Resolved Time COVID19 03/13/2020 03/13/2020 04/03/2020 3:17 AM NICKING MACHINE OPERATOR R/O COVID19 04/04/2021 04/04/2021 04/05/2021 8:29 PM NICKING MACHINE OPERATOR COVID19 04/04/2021 04/04/2021 04/24/2021 3:17 AM NICKING MACHINE OPERATOR documented as of this encounter Care Teams Equipment Operating Engineer Relationship Specialty Start Date End Date Rand Smyth MD [address] [place] [address] PCP - General Internal Medicine/Pediatrics 05/31/22 documented as of this encounter
--- OUTSIDE RECORDS SUMMARY | 2024-06-22 05:28 | XMS_ITS | Encounter Summary ---
Author Organization [employer] Address [address] [place] [address] Care Team Providers Care Security Installation Sales Technician Name Role Phone Rand Smyth MD Primary Care Provider + [phone] Encounter Details Date Type Department Care Team (Late st Contact Info) Description 02/19/2016 Home Visit [facility] [address] [place] [address], [address] [place] [address] Timmy Johnson, RN [address] [place], [place] [id number] Social History Tobacco Use Types Packs/Day Years [...] as of this encounter Progress Notes * iTmmy Johnson, RN - 02/19/2016 2:05 AM CDT Nursing SOC Summary: *SITUATION: Focus of care for this episode: CP assessment, and wound care with wound vac on abdomen 3x/week. Primary diagnosis: Peritoneal abcess Secondary diagnoses: Low back pain, ADHD, hypothyroidism, malignant neoplasm of left female breast, and S/P hysterectomy. *BACKGROUND: Reason for Referral: CP assessment, and wound care with wound vac on abdomen 3x/week. Hospital/TCU dates: [facility] 02/03/2016-02/18/2016 [facility] 01/29/2016-01/31/2016 [facility] 01/11/2016-01/13/2016 Clinic referral: Blanca Pina MD. [facility]. Living/CG situation: Client lives in two story home with and sons with several pets. Family assists with personal cares and provides support. Language/administrative court justice: Khmer, no administrative court justice needed. *ASSESSMENT: T:98.7 F P: 80 bpm RR: 12 BP: 108/68 R. arm Pain: Cramping pain that is present all the time. Location: Abdomen, wound site. Ratin/10. Relieved by and frequency of pain meds: Client gets some relief from pain meds. Oxycontin and Oxycodone. Cardiac: Regular pulse, no edema in RLE, +1 edema in LLE, BUTADIENE CONVERTER HELPER<3 seconds. Client denies chest pain. Pulmonary: LSC, client denies dyspnea/cough. Non-smoker. O2 sats: 98%, on RA. Gastrointestinal: Bowel sounds present x4, pain upon palpation d/t wound on abdomen, LBM was yesterday, and 2BM's/week. Client c/o occasional constipation and heartburn. Genitourinary: Client denies incontinence or any other GI issues. Neuro: A&Ox3, PERRLA, and client wears glasses. Client denies all other neuro issues. Depression/PHQ-2 score/Anxiety: 0. Client denies depression, but states she has been anxious less than daily d/t current condition. Skin: C/D/I. Client denies skin issues. Bo score: 20. Wound #1: Wound Type and Specific Location: Mid-line incision to abdomen and open wound. Wound Measurement: L: 17.4 x W: 7 x D: unknown d/t wound vac and sponges in place. Wound Drainage: Amount/Type: Moderate/serosanguinous Wound bed: Beefy red at wound edges Kassandra wound area: Flat and intact Wound care orders at SOC: Cleanse wound and skin with dilute hibiclens, apply skin protectant to kassandra-wound, border wound edges and bridge area with strips of Vac drape. Fill naval crevice with 1/[address] double layer Silver Triact contact layer over incision line (mid wound bed). Cut Vac sponge to fit wound and place in wound. Cut strip of foam for bridge, cut landing pad, and place over Vac drape. Cover wound and bridged area with Vac drape. Cut quarter sized hole in Vac drape and place Trac pad. Connect to continuous suction @75mmHg. Medication Review: Nurse reviewed meds. in the home with the client. No discrepancies found. Client is fully knowledgeable of meds. List how medications are managed: Client manages medications independently in the home. Home safety: Client spends most of time in bed and has several pets including cats and a dog. Family assists with personal cares. No safety concerns during visit. Mobility/MAHC-10 Score: 5, client is at risk for falls d/t current condition. Prior level of function: Client is independent with all ADL's and IADL's. Current level of function: Client spends a moderate amount of time in bed, but walks occasionally. Client is independent with grooming, dressing, toileting, and transferring, but gets standby assistance with showering, and also assistance with preparing meals and uses a walker for ambulation. Skilled services and care coordination provided this visit: Comprehensive assessment, medication validation/education, and wound vac assessment and care. *RECOMMENDATION: Admit to home care with the following services: SN for CP assessment, and wound vac care 3x/week and PRN. Services declined: PT, OT, ST, PAPER COUNTER, and UNBUNDLER. Payer: Commercial Does not meet Medicare coverage criteria because: Age Timmy Johnson RN on 02/18/2016 documented in this encounter Plan of Treatment Upcoming Encounters Date Type Department Care Team (Late st Contact Info) Description 06/23/2024 9:00 AM FIRE TOWER KEEPER Telemedicine [facility] [address] [place] [address] Rand Smyth MD [address] [place] [address] documented as of this encounter Visit Diagnoses Not on filedocumented in this encounter Additional Health Concerns Infection Onset Date Last Indicated Resolved Time COVID19 03/13/2020 03/13/2020 04/03/2020 3:17 AM FIRE TOWER KEEPER R/O COVID19 04/04/2021 04/04/2021 04/05/2021 8:29 PM FIRE TOWER KEEPER COVID19 04/04/2021 04/04/2021 04/24/2021 3:17 AM FIRE TOWER KEEPER documented as of this encounter Care Teams Security Installation Sales Technician Relationship Specialty Start Date End Date Rand Smyth MD [address] [place] [address] PCP - General Internal Medicine/Pediatrics 05/31/22 documented as of this encounter
--- OUTSIDE RECORDS SUMMARY | 2024-06-22 05:28 | XMS_ITS | Encounter Summary ---
Author Organization [employer] Address [address] [place] [address] Care Team Providers Care Service Desk Specialist Name Role Phone Rand Smyth MD Primary Care Provider [phone] Encounter Details Date Type Department Care Team (Late st Contact Info) Description 10/15/2016 Consent for Procedure/Treatme nt [facility] INFORMED CONSENT RECORD Social History Tobacco [...] st Contact Info) Description 06/23/2024 9:00 AM WOODWORKER Telemedicine [facility] [address] [place] [address] Rand Smyth MD [address] [place] [address] documented as of this encounter Visit Diagnoses Not on filedocumented in this encounter Additional Health Concerns Infection Onset Date Last Indicated Resolved Time COVID19 03/13/2020 03/13/2020 04/03/2020 3:17 AM WOODWORKER R/O COVID19 04/04/2021 04/04/2021 04/05/2021 8:29 PM WOODWORKER COVID19 04/04/2021 04/04/2021 04/24/2021 3:17 AM WOODWORKER documented as of this encounter Care Teams Service Desk Specialist Relationship Specialty Start Date End Date Rand Smyth MD [address] [place] [address] PCP - General Internal Medicine/Pediatrics 05/31/22 documented as of this encounter
--- OUTSIDE RECORDS SUMMARY | 2024-06-22 05:28 | XMS_ITS | Encounter Summary ---
Author Organization [employer] Address [address] [place] [address] Care Team Providers Care Coupling Machine Operator Name Role Phone Rand Smyth MD Primary Care Provider + [phone] Encounter Details Date Type Department Care Team (Late st Contact Info) Description 11/11/2013 Correspondence [facility] Radiology [address] [place] [id number] Radiology, Provider MRI SAFETY SHEET AND COMPATIBILITY FORM Social History Tobacco Use Types Packs/Day [...] st Contact Info) Description 06/23/2024 9:00 AM LENS MATCHER Telemedicine [facility] [address] [place] [address] Rand Smyth MD [address] [place] [address] documented as of this encounter Visit Diagnoses Not on filedocumented in this encounter Additional Health Concerns Infection Onset Date Last Indicated Resolved Time COVID19 03/13/2020 03/13/2020 04/03/2020 3:17 AM LENS MATCHER R/O COVID19 04/04/2021 04/04/2021 04/05/2021 8:29 PM LENS MATCHER COVID19 04/04/2021 04/04/2021 04/24/2021 3:17 AM LENS MATCHER documented as of this encounter Care Teams Coupling Machine Operator Relationship Specialty Start Date End Date Rand Smyth MD [address] [place] [address] PCP - General Internal Medicine/Pediatrics 05/31/22 documented as of this encounter
--- OUTSIDE RECORDS SUMMARY | 2024-06-22 05:28 | XMS_ITS | Encounter Summary ---
Author Organization [employer] Address [address] [place] [address] Care Team Providers Care Supervisor Bakery Sanitation Name Role Phone Rand Smyth MD Primary Care Provider + [phone] Encounter Details Date Type Department Care Team (Late st Contact Info) Description 06/25/2017 Emergency Room External to [facility] PAIN [...] st Contact Info) Description 06/23/2024 9:00 AM NEW PATIENT ESCORT Telemedicine [facility] [address] [place] [address] Rand Smyth MD [address] [place] [address] documented as of this encounter Visit Diagnoses Not on filedocumented in this encounter Additional Health Concerns Infection Onset Date Last Indicated Resolved Time COVID19 03/13/2020 03/13/2020 04/03/2020 3:17 AM NEW PATIENT ESCORT R/O COVID19 04/04/2021 04/04/2021 04/05/2021 8:29 PM NEW PATIENT ESCORT COVID19 04/04/2021 04/04/2021 04/24/2021 3:17 AM NEW PATIENT ESCORT documented as of this encounter Care Teams Supervisor Bakery Sanitation Relationship Specialty Start Date End Date Rand Smyth MD [address] [place] [address] PCP - General Internal Medicine/Pediatrics 05/31/22 documented as of this encounter
--- OUTSIDE RECORDS SUMMARY | 2024-06-22 05:28 | XMS_ITS | Encounter Summary ---
Author Organization [employer] Address [address] [place] [address] Care Team Providers Care Analytics Associate Name Role Phone Rand Smyth MD Primary Care Provider [phone] Encounter Details Date Type Department Care Team (Late st Contact Info) Description 01/27/2018 Consent for Procedure/Treatme nt [facility] Department INFORMED CONSENT RECORD Social History Tobacco [...] st Contact Info) Description 06/23/2024 9:00 AM CARDROOM MANAGER Telemedicine [facility] [address] [place] [address] Rand Smyth MD [address] [place] [address] documented as of this encounter Visit Diagnoses Not on filedocumented in this encounter Additional Health Concerns Infection Onset Date Last Indicated Resolved Time COVID19 03/13/2020 03/13/2020 04/03/2020 3:17 AM CARDROOM MANAGER R/O COVID19 04/04/2021 04/04/2021 04/05/2021 8:29 PM CARDROOM MANAGER COVID19 04/04/2021 04/04/2021 04/24/2021 3:17 AM CARDROOM MANAGER documented as of this encounter Care Teams Analytics Associate Relationship Specialty Start Date End Date Rand Smyth MD [address] [place] [address] PCP - General Internal Medicine/Pediatrics 05/31/22 documented as of this encounter
--- OUTSIDE RECORDS SUMMARY | 2024-06-22 05:28 | XMS_ITS | Data Portability ---
Author Organization [place] [facility] Address [address] [address] Care Team Providers Care Bullet Maker Name Role Phone SMITHDIONNA Referring Provider [phone] Assessment Encounter Date Assessment Date Assessment LastModified by Organization Details LastModified Time 01/20/2019 01/20/2019 This patient has bilateral TMJ internal derangements, bilateral masticatory myalgia, and left TMJ arthralgia. Today I spent an extensive amount of time discussing this patient's chief complaints in addition to reviewing their past medical and personal history. I performed a physical examination which is fully documented in the electronic health record. I also educated the patient about the pathophysiology of the disorder, potential contributing and risk factors as well as treatment options to address their complaints. Today panoramic imaging was obtained. On this film there appeared to be oggf-ki-bsybfich flattening with sclerosis and osteophyte formation on the anterior aspect of the left TMJ condyle. All other bony and dental structures visualized appeared to be within normal limits. I've recommended advanced imaging with MRI. From a treatment perspective I've recommended self-care. Treatment begins with home self management designed to rest the muscles of mastication and reduce inflammation in the temporomandibular joints. This includes heat and ice compresses, eating a soft food or pain-free diet, bilateral chewing identifying and decreasing daytime muscle tension and modification of their sleep position. Beyond self management I do believe that they would benefit from an intraoral appliance. The goal of treatment is to restore function and reduce pain. I do believe that by following these treatment recommendations there is a good prognosis for reduction of symptoms. Today 60 minutes were spent with the patient with greater than 50% of the visit spent in counseling and coordinating care. This included a review of the diagnosis, contributing factors, diagnostic imaging, home self-management strategies and the limitations and expectations. Cost of care and insurance coverage was reviewed and discussed with the patient... [email or web address] Not available 01/20/2019 17:23:29 Plan of Treatment Reminders Order Date Submit Date Provider Last Modified By Organization Details Last Modified Time Details Appointments None recorded. Lab None recorded. Referral None recorded. Procedures None recorded. Surgeries None recorded. Imaging XR, orthopantog nita 2018 019 [email or web address] [place] [id number] [facility] [address], [place], [address], 9 17:19:43 Medication Orders None recorded. Patient TargetsNo targets recorded. Patient Instructions Encounter Date Encounter Id Patient Instructions Last Modified By Organization Details Last Modified Time 01/20/2019 [id number] 1. instructed in self cares 2. [place] FPS (4mm thick posterior Thermoflex): impressions done by dental preschool teacher assistant today 3. 1/2 hr w/Dr. Harris in 2 weeks to custom fit [place] FPS after pt. returns from 4 days in [place] 4. took and reviewed panorex with patient today 5. bilateral TMJ MRIs at [facility] (MRI prescription fax'ed today) [facility] Not available 01/20/2019 17:22:45 Reason for Referral None Reported. Results Created Date Observation Date Name Description Value Unit Range Abnormal Flag Note LastModifiedBy Organization Detail LastModifiedTime 01/21/20 19 XR, ortho panto gram No observ ation record ed. [email or web address] Not Available 12/28 16:37:51 Result Notes None recorded. 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 53523361 Active 2018 Maite Harris DDS [address] [facility] [address], [place], [address], [facility] 9 17:19:28 Myofascial pain 881178239 Active 2018 Maite Harris DDS [address] [facility] [address], [facility] [place], [address], [facility] 9 17:19:34 Arthralgia of temporomandibu lar joint 57580114 Active 2018 Maite Harris, DDS [address] [facility] [address], [place], [address], [facility] 9 17:20:01 Problem Notes None recorded. Procedures Surgical History Date Name Laterality Status Provider Name and Address Organization Details Recorded Time Whiting Teeth Extraction completed Gayla Rose [facility] 01/20/2019 15:46:11 Cancer Surgery completed Gayla Rose [facility] 01/20/2019 15:46:11 Tonsillectomy completed Gayla Rose [facility] 01/20/2019 15:46:11 Circuits Engineer Surgery completed Gayla Rose [facility] 01/20/2019 15:46:11 Other completed Gayla Rose [facility] 01/20/2019 15:46:11 Radiation Therapy completed Epes Rose [facility] 01/20/2019 15:46:11 Imaging Results Imaging Date Name Status LastModified by Organization Details LastModified Time 01/20/2019 XR, orthopantogram completed [email or web address] Infor mation not available 01/20/2019 16:37:51 Procedure Notes None recorded. Medical Equipment None Reported. Allergies Allergen ID Allergen Name Allergen Category Reaction Reaction Severity Criticality Documentation Date Start Date Code Code System Note Provider Name and Address Organization Details Recorded Time 82530 vancomyci n medicatio n other moderate Not available 01/20/2019 26069 RxNorm Gayla Rose [facility] 9 15:45:20 Medications Name Sig Start Date Stop Date Status Note LastModified by Organization Details LastModified Time nystatin 100,000 unit/mL oral suspension active Not Available Not Availa ble Not Available venlafaxine ER 75 mg capsule,extende d release 24 hr active Not Available Not Availa ble Not Available ondansetron HCl 4 mg tablet active Not Available Not Available Not Available alendronate 70 mg tablet 1 tablet every week by oral route. active Not Available Not Available No t Available metronidazole 500 mg tablet active Not Available Not Availabl e Not Available ciprofloxacin 500 mg tablet active Not Available Not Availabl e Not Available levothyroxine 88 mcg tablet 1 tablet every day by oral route. active Not Available Not Available No t Available levothyroxine 50 mcg tablet active Not Available Not Availabl e Not Available Synthroid 112 mcg tablet active Not Available Not Available N ot Available letrozole 2.5 mg tablet 1 tablet every day by oral route. active Not Available Not Available No t Available fluticasone propionate 50 mcg/actuation nasal spray,suspensio n active Not Available Not Available Not Available dicyclomine 10 mg capsule active Not Available Not Available N ot Available marijuana (cannabis) active Not Available Not Available N ot Available Vitals Date Recorded Body height Body mass index (BMI) Body weight Pain severity - 0-10 verbal numeric rating [Score] - Reported Heart rate Systolic blood pressure Diastolic blood pressure Provider Name and Address Organization Details Last Updated DateTime 9 160.02 cm 22.1 kg/m2 77267.0 5 g 0 74 /min 112 mm[Hg] 77 mm[Hg] Gayla Rose [facility] 9 16:13:54 Social History Question Answer Notes LastModified by Organizat ion Details LastModified Time Tobacco Smoking Status Never Smoker Gayla rehman [facility] 01/20/2019 15:46:00 What Is Your Level Of Alcohol Consumption? Occasional [email or web address] Information not available 01/20/2019 Auto Related Injury? No [email or web address] Information not available 01/20/2019 What Is Your Level Of Caffeine Consumption? Occasional [email or web address] Information not available 01/20/2019 Are You Currently Employed? Yes [email or web address] Information not available 01/20/2019 Currently No [email or web address] Information not available 01/20/2019 What Type Of Diet Are You Following? REGULAR [email or web address] Information not available 01/20/2019 Do You Reside In Or Have You Traveled To An Area Where Ebola Virus Transmission Is Active? 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 (0=no Pain, 10=pain As Bad As You Can Imagine) 5 [email or web address] Information not available 01/20/2019 What Number Best Describes How, During The Past Week, Pain Has Interfered With Your Enjoyment Of Life? (0=does Not Interfere, 10= Completely Interferes) 2 [email or web address] Information not available 01/20/2019 What Number Best Describes How, During The Past Week, Pain Has Interfered With Your General Activity? (0=does Not Interfere, 10=completely Interferes) 2 [email or web address] Information not available 01/20/2019 How Many Children Do You Have? 4 [email or web address] Information not available 01/20/2019 Relationship Status Information not available 01/20/2019 General Stress Level High [email or web address] Information not available 01/20/2019 Do You Use Any Illicit Or Recreational Drugs? No [email or web address] Information not available 01/20/2019 Work Related Injury? No [email or web address] Information not available 01/20/2019 Sex: Unknown Functional Status Question Answer Note LastModified by OrganAfterShip ion Details LastModified Time What is your exercise level? Occasional [email or web address] Information not available 01/20/2019 Mental Status None recorded. Family History Relationship Description Onset Age of this Age Resolved Age Notes LastModified by Organization Details LastModified Time Son Migraine 8 [email or web address] Not availa ble 01/20/2019 15:45:29 Son Diabetes mellitus 14 [email or web address] Not available 12/28 15:45:29 Mother Migraine [email or web address] Not availa ble 01/20/2019 15:45:29 Daughter Migraine 10 [email or web address] Not avai lable 01/20/2019 15:45:29 Medical History Condition Response Coronary Artery Disease N Other N Gout N MRSA N Head Trauma/Injury N Lung Disease N Glaucoma N Depression N COPD N Pneumonia N Pacemaker N Obstructive Sleep Apnea N Anxiety Disorder N Muscle, Joint, or Bone Problems Y Autoimmune disease N Vision or Eye Problems N Arthritis N Acid Reflux (GERD) Y Cancer Y Stroke N Back Injury N High Cholesterol N Liver Disease N Organ Transplant N Rheumatoid Arthritis N Headaches N Fibromyalgia Y Kidney Disease N Allergies/Hayfever N Post traumatic stress disorder (PTSD) N Parkinson's Disease N Migraines Y Brain Tumors N Anemia N Multiple Sclerosis N Heart Attack ([place]) N Stomach Ulcers N Diabetes N Bleeding Disorder N Seizures/Epilepsy N Tuberculosis N AIDS/HIV N Dementia N Asthma N Substance Abuse N Vertigo N Sleep Disorder N Hepatitis N Neuropathy N Heart Disease N Pulmonary Embolism N Hypertension N Osteoporosis Y Gynecological HistoryNo gynecological history recorded. Obstetrics History GPAL:G 0 P 0 0 0 0 Immunizations Vaccine Type Date Status Note Provider Nam e and Address Organization Details Recorded Time Influenza, split virus, quadrivalent, preservative 8 completed Gayla Rose [facility] 01/20/2019 16:13:42 Past Encounters Encounter ID Performer Location Encounter Start Date Encounter Closed Date Diagnosis/Indication Diagnosis SNOMED-CT Code Diagnosis ICD10 Code Diagnosis Note [id number] Maite Harris, S [address] [address] 01/20/2019 15:38:38 01/20/2019 17:09:05 Arthralgia of temporomandibular joint 51904059 M26.622 Myofascial pain 97079612 9 M79.10 Articular disc disorder of temporomandibular joint 64435882 M26.633 Health Concerns Section Related Observation LastModified by Organization Detai ls LastModified Time None Recorded Concern Status LastModified by Organization Details LastModified Time None Recorded Advance Directives Directive None Recorded Payers Encounter Date Sequence Insurance Name Policy Number Policy Mahan Covered Member ID Mahan Member ID Guarantor Name 01/20/2019 1 [employer] [id number] Donte Campos [id number] Donte Campos Notes Date Note Type Note Provider Name and Address Organization Details Recorded Time 01/20/2019 text/html Jaw painReported bypatient.Onset:starte d 19 year(s) ago Location:left; TMJ Quality:dull; tightness, fatigued Severity:pain level 0/10 Duration and frequencyconstantNotes :L TMJ pain, 1-5/10, daily intermittent dull to moderate acheR < L jaw pain tightness and pain, 2-5/10, constant dull to moderate ache aggravated by yawning, chewing gum, chewier foods, - splint therapy, not chewing gum,relieved by reminding herself to keep tongue up and teeth apart - she had physical therapy (25 years ago) Panorex taken at dentist but told was really to dark and we should take a new one hereJaw joint noisesReported bypatient.Onset:starte d 1 month(s) ago Location:bilateral Quality:dull;clicking; crunching noise Severity:pain level 0/10Notes:R < L TMJ clicking and crunching noises, no pain with noises started to hear the noises about 1 month agolimited mouth opening/jaw lockingReported bypatient.Location:branden ateral; TMJ Quality:jaw locks closed bilateral; joint doesn't seem out of place Severity:pain level 10/10 Onset:started in 1993 year(s) ago Durationepisodic infrequentNotes:R < L TMJ closed jaw locking, persistent limited jaw opening splint therapy after the surgery on her jaw Donte presents today for evaluation of a possible temporomandibular disorder. These symptoms are {{acute chronic*}} and began with {{jaw locking# no clear triggering events significant stress and tension}}. Previous consultation include {{ none evaluation with his/her primary care provider evaluation with his/her dentist* evaluation with both his/her dentist and primary care provider}}. Symptoms are {{right sided only left sided only* bilateral}} and aggravated by {{ no clear triggers jaw use and function* clenching and grinding of their teeth stress and tension}}. The patient is {{aware* not aware}} of teeth clenching and grinding. Donte reports that she had TMJ surgery (plication procedure) in 1993 to treat bilateral TMJ internal derangements with intermittent closed jaw locking. She has worn dental splints in the past but is not wearing one now. She was seen at her dentist recently and was told to have her TMD checked and possibly have a new splint made. Maite Harris, DDS [address] [facility] [address], [place], [address], [facility] 01/20/2019 17:24:03 OBGyn Episode No OBEpisode recorded.
--- OUTSIDE RECORDS SUMMARY | 2024-06-22 05:28 | XMS_ITS | Encounter Summary ---
Author Organization [employer] Address [address] [place] [address] Care Team Providers Care Audio Visual Tech Name Role Phone Rand Smyth MD Primary Care Provider [phone] Encounter Details Date Type Department Care Team (Latest Contact Info) Description 03/16/2018 Consent for Procedure/Treatme nt [facility] [address] [place] [address] Michell Caballero MD [address] [place], [place] [id number] INFORMED CONSENT FOR SKIN BIOPSY OR EXCISION Social History Tobacco Use Types Packs/Day Years [...] st Contact Info) Description 06/23/2024 9:00 AM RADIOGRAPHER CARDIAC CATHETERIZATION Telemedicine [facility] [address] [place] [address] Rand Smyth MD [address] [place], [place] [id number] documented as of this encounter Visit Diagnoses Not on filedocumented in this encounter Additional Health Concerns Infection Onset Date Last Indicated Resolved Time COVID19 03/13/2020 03/13/2020 04/03/2020 3:17 AM RADIOGRAPHER CARDIAC CATHETERIZATION R/O COVID19 04/04/2021 04/04/2021 04/05/2021 8:29 PM RADIOGRAPHER CARDIAC CATHETERIZATION COVID19 04/04/2021 04/04/2021 04/24/2021 3:17 AM RADIOGRAPHER CARDIAC CATHETERIZATION documented as of this encounter Care Teams Audio Visual Tech Relationship Specialty Start Date End Date Rand Smyth MD [address] [place] [address] PCP - General Internal Medicine/Pediatrics 05/31/22 documented as of this encounter
--- OUTSIDE RECORDS SUMMARY | 2024-06-22 05:28 | XMS_ITS ---
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 06/20/2021 Speech disturbance 06/20/2021 Dysphonia 06/20/2021 Vocal cord dysfunction 06/20/2021 Myofascial pain 01/02/2018 Diffuse pain 11/07/2017 Personal history of malignant neoplasm of breast 08/11/2017 Overview (08/11/2017): Added automatically from request for surgery [id number] Ventral hernia without obstruction or gangrene 1 Left-sided chest wall pain 01/15/2017 H/O breast reconstruction 11/28/2016 Overview (11/28/2016): Added automatically from request for surgery [id number] Breast hematoma 10/15/2016 Overview (10/15/2016): Added automatically from request for surgery [id number] Rash of body 06/18/2016 H/O bilateral mastectomy 04/05/2016 S/P hysterectomy 12/27/2015 Overview (12/27/2015): No screening Pap tests per ASCCP guidelines. 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 Past Treatment and Therapy Plans ONCOLOGY TREATMENT Plan Name Start Date Discontinue Date Treatment Medications Discontinue Reason Plan Provider Cycles PACLItaxel (28D:1,8,15,22) x 3 cycles 016 11/24/2018 ALBUterol sulfate HFAalteplase (CATHFLO ACTIVASE)dexAMETHasone (DECADRON)diphenhydrAM INE (BENADRYL)EPINEPHrine (EPIPEN)famotidine (PEPCID)heparinheparin (porcine) 100 UNIT/MLLORazepam (ATIVAN)methylPREDNISo lone sodium succinate (SOLU-medrol)PACLitaxe l (TAXOL) in 250 mL IVPBprochlorperazine (COMPAZINE)sodium chloride 0.9 %sodium chloride 0.9% Therapy Complete Nico Portillo MD 3 of 3 cycles started DOXOrubicin CYCLOPHOSPHAMIDE (14D:1) 016 09/05/2015 ALBUterol sulfate HFAalteplase (CATHFLO ACTIVASE)cycloPHOSpham kenny (CYTOXAN) infusiondexAMETHasone (DECADRON)dexAMETHason e-ondansetron IVPBdiphenhydrAMINE (BENADRYL)DOXOrubicin (ADRIAMYCIN)EPINEPHrin e (EPIPEN)famotidine (PEPCID)fosaprepitant (EMEND) 150 mg 250 mL IVPB ADSheparinheparin (porcine) 100 UNIT/MLLORazepam (ATIVAN)methylPREDNISo lone sodium succinate (SOLU-medrol)ondansetr on (ZOFRAN)pegfilgrastim (NEULASTA)prochlorpera zine (COMPAZINE)sodium chloride 0.9 %sodium chloride 0.9% Therapy Complete Nico Portillo MD 4 of 4 cycles started Lifetime Dose Tracking * Chemical Lifetime Dose Automatic Entry Manual Entr y Doxorubicin 243.514 mg/m2 (374.4 mg) 243.514 mg/m2 (3 74.4 mg) 0 mg/m2 (0 mg) Resolved Problems Problem Noted Date Diagnosed Date Resolved Date CAREPLAN: [employer] DISEASE MANAGEMENT 9 01/18/2019 Overview (01/18/2019): PT CARE COORDINATION - [facility] DETENTION 02/19/2017 01/09/2018 Overview (05/20/2017): If you have any questions or concerns please contact: Your Care Team at [facility] Primary Care Provider: Josh Manzanares MD RN Coordinator: Amanda Simpson RN CareLine at [phone] or after hours and on weekends. Care Coordination (Community Resources, Specialists, Home Health Agency, Caregiver, Supply Vendor, Critical Care Paramedic) Contact Name SANKET Obtained? Phone Number Role in Care Comments Lucy Harley RN (Michelle) N/A [phone] DCM Action Plan Donte's Chosen Goal: Brynn will work with DCM on her goals Detailed Action Steps to Achieve Goal & Who Will Complete: Confidence Level: On a scale of 1-10, Donte's confidence level to achieve this goal is 7 Date Goal Achieved Additional Patient Instructions Follow-Up RN will follow-up with DCM every 3 months and prn. Fibromyalgia 01/02/2017 01/17/2017 Weakness 06/05/2016 04/04/2017 Left shoulder pain 06/05/2016 7 CAREPLAN: COUNTS INCLUDE 234 BEDS AT THE [facility] DISEASE MANAGEMENT 6 10/09/2017 Bilateral hip pain 04/12/2014 5
--- OUTSIDE RECORDS SUMMARY | 2024-06-22 05:28 | XMS_ITS | Encounter Summary ---
Author Organization [employer] Address [address] [place] [address] Care Team Providers Care Oil Gas And Pipe Tester Name Role Phone Rand Smyth MD Primary Care Provider [phone] Encounter Details Date Type Department Care Team (Latest Contact Info) Description 02/04/2019 Consent for Procedure/Treatme nt [facility] [address] [place] [address]. [place] [address] Pedro Madrid MD [address] [place] [id number] INFORMED CONSENT FOR SKIN BIOPSY OR EXCISION Social History Tobacco Use Types Packs/Day Years Used Date Smoking Tobacco: Never Smokeless Tobacco: Never Alcohol Use Standard Drinks/Week Comments Yes 0 (1 standard drink = 0.6 oz pure alcohol) 2 drinks per week per new pt josie hx form 07/17/18 Comments No Sex and Gender Information Value Date Recorded Sex Assigned at Not on file Legal Sex Female 5:53 AM CDT Gender Identity Not on file Sexual Orientation Not on file documented as of this encounter Plan of Treatment Upcoming Encounters Date Type Department Care Team (Late st Contact Info) Description 06/23/2024 9:00 AM DROP WIRE ALIGNER Telemedicine [facility] [address] [place] [address] Rand Smyth MD [address] [place] [address] documented as of this encounter Visit Diagnoses Not on filedocumented in this encounter Additional Health Concerns Infection Onset Date Last Indicated Resolved Time COVID19 03/13/2020 03/13/2020 04/03/2020 3:17 AM DROP WIRE ALIGNER R/O COVID19 04/04/2021 04/04/2021 04/05/2021 8:29 PM DROP WIRE ALIGNER COVID19 04/04/2021 04/04/2021 04/24/2021 3:17 AM DROP WIRE ALIGNER documented as of this encounter Care Teams Oil Gas And Pipe Tester Relationship Specialty Start Date End Date Rand Smyth MD [address] [place] [address] PCP - General Internal Medicine/Pediatrics 05/31/22 documented as of this encounter
--- OUTSIDE RECORDS SUMMARY | 2024-06-22 05:28 | XMS_ITS | Encounter Summary ---
Author Organization [employer] Address [address] [place] [address] Care Team Providers Care Lease Broker Name Role Phone Rand Smyth MD Primary Care Provider [phone] Encounter Details Date Type Department Care Team (Late st Contact Info) Description 12/16/2016 Consent for Procedure/Treatme nt [facility] Department INFORMED CONSENT RECORD Social [...] st Contact Info) Description 06/23/2024 9:00 AM CONTRACTOR BUYER Telemedicine [facility] [address] [place] [address] Rand Smyth MD [address] [place] [address] documented as of this encounter Visit Diagnoses Not on filedocumented in this encounter Additional Health Concerns Infection Onset Date Last Indicated Resolved Time COVID19 03/13/2020 03/13/2020 04/03/2020 3:17 AM CONTRACTOR BUYER R/O COVID19 04/04/2021 04/04/2021 04/05/2021 8:29 PM CONTRACTOR BUYER COVID19 04/04/2021 04/04/2021 04/24/2021 3:17 AM CONTRACTOR BUYER documented as of this encounter Care Teams Lease Broker Relationship Specialty Start Date End Date Rand Smyth MD [address] [place] [address] PCP - General Internal Medicine/Pediatrics 05/31/22 documented as of this encounter
--- OUTSIDE RECORDS SUMMARY | 2024-06-22 05:28 | XMS_ITS | Encounter Summary ---
Author Organization for; [employer] Address [address] [place] [address] Care Team Providers Care Electronic Video Games Servicer Name Role Phone Rand Smyth MD Primary Care Provider + [phone] Encounter Details Date Type Department Care Team (Late st Contact Info) Description 07/07/2015 Consent for Procedure/Treatme nt [facility] INFORMED [...] st Contact Info) Description 06/23/2024 9:00 AM CONDITIONING MACHINE OPERATOR Telemedicine [facility] [address] [place] [address] Rand Smyth MD [address] [place] [address] documented as of this encounter Visit Diagnoses Not on filedocumented in this encounter Additional Health Concerns Infection Onset Date Last Indicated Resolved Time COVID19 03/13/2020 03/13/2020 04/03/2020 3:17 AM CONDITIONING MACHINE OPERATOR R/O COVID19 04/04/2021 04/04/2021 04/05/2021 8:29 PM CONDITIONING MACHINE OPERATOR COVID19 04/04/2021 04/04/2021 04/24/2021 3:17 AM CONDITIONING MACHINE OPERATOR documented as of this encounter Care Teams Electronic Video Games Servicer Relationship Specialty Start Date End Date Rand Smyth MD [address] [place] [address] PCP - General Internal Medicine/Pediatrics 05/31/22 documented as of this encounter
--- OUTSIDE RECORDS SUMMARY | 2024-06-22 05:28 | XMS_ITS | Encounter Summary ---
Author Organization [employer] Address [address] [place] [address] Care Team Providers Care Social Science Research Assistant Name Role Phone Rand Smyth MD Primary Care Provider + [phone] Encounter Details Date Type Department Care Team (Late st Contact Info) Description 09/08/2015 Consent for Procedure/Treatme nt [facility] INFORMED [...] st Contact Info) Description 06/23/2024 9:00 AM BEAN PICKER Telemedicine [facility] [address] [place] [address] Rand Smyth MD [address] [place] [address] documented as of this encounter Visit Diagnoses Not on filedocumented in this encounter Additional Health Concerns Infection Onset Date Last Indicated Resolved Time COVID19 03/13/2020 03/13/2020 04/03/2020 3:17 AM BEAN PICKER R/O COVID19 04/04/2021 04/04/2021 04/05/2021 8:29 PM BEAN PICKER COVID19 04/04/2021 04/04/2021 04/24/2021 3:17 AM BEAN PICKER documented as of this encounter Care Teams Social Science Research Assistant Relationship Specialty Start Date End Date Rand Smyth MD [address] [place] [address] PCP - General Internal Medicine/Pediatrics 05/31/22 documented as of this encounter
--- OUTSIDE RECORDS SUMMARY | 2024-06-22 05:28 | XMS_ITS | Encounter Summary ---
Author Organization [employer] Address [address] [place] [address] Care Team Providers Care Electromechanical Assembler Name Role Phone Rand Smyth MD Primary Care Provider [phone] Encounter Details Date Type Department Care Team (Late st Contact Info) Description 07/21/2015 Correspondence External to [employer] Correspondence, Provider FMLA CERTIFICATION Social History Tobacco Use Types Packs/Day Years [...] st Contact Info) Description 06/23/2024 9:00 AM VISUAL ARTIST Telemedicine [facility] [address] [place] [address] Rand Smyth MD [address] [place] [address] documented as of this encounter Visit Diagnoses Not on filedocumented in this encounter Additional Health Concerns Infection Onset Date Last Indicated Resolved Time COVID19 03/13/2020 03/13/2020 04/03/2020 3:17 AM VISUAL ARTIST R/O COVID19 04/04/2021 04/04/2021 04/05/2021 8:29 PM VISUAL ARTIST COVID19 04/04/2021 04/04/2021 04/24/2021 3:17 AM VISUAL ARTIST documented as of this encounter Care Teams Electromechanical Assembler Relationship Specialty Start Date End Date Rand Smyth MD [address] [place] [address] PCP - General Internal Medicine/Pediatrics 05/31/22 documented as of this encounter
--- OUTSIDE RECORDS SUMMARY | 2024-06-22 05:28 | XMS_ITS | Clinical Summary ---
Author Organization [facility] Address [address] [place] [address] Care Team Providers Care Lepidopterist Name Role Phone Rand Smyth MD Primary Care Provider + [phone] Source Comments You are receiving this document as you are listed as the primary care provider,follow-up provider, or the patient has been referred to you for consultation.This is in compliance with the Medicare and[facility] Hospitalca[facility] EHR Incentive Program,which states Providers who transition their patient to another setting of careor provider of care or refers their patient to another provider of care shouldprovide summary care record for each transition of care or referral. [employer] Allergies Active Allergy Reactions Criticality Noted Date Comments Vancomycin Itching 01/15/2017 toñito syndrome. Patient gets red face and back, itchy. Medications ASHWAGANDHA OR Take 1 Tab by mouth daily. Active Misc Natural Products (TURMERIC CURCUMIN) Take 1 Tab by mouth daily. Active VITAMIN D OR 10,000 Int'l Units/day. Active Ascorbic Acid (VITAMIN C OR) Activ e diphenhydrAMINE (BENADRYL) 25 MG tablet Take 1 Tablet (25 mg) by mouth every 6 hours as needed for Itching. Active famotidine (PEPCID) 10 MG tablet Take 1 Tablet (10 mg) by mouth daily. 09/19/2022 Active venlafaxine (EFFEXORXR) 75 MG 24 hour release capsule Acti ve levothyroxine (SYNTHROID) 88 MCG tablet 1 tablet every day by oral route. Active letrozole (FEMARA) 2.5 MG tabletIndicatio ns:Malignant neoplasm of lower-outer quadrant of left breast of female, estrogen receptor positive (HRC) Take 1 Tablet (2.5 mg) by mouth daily. 90 Tablet 3 04/14/2023 Active gabapentin (NEURONTIN) 100 MG capsule TAKE 1 TO 3 CAPSULES(100 TO 300 MG) BY MOUTH DAILY AT BEDTIME. START WITH 1 EVERY NIGHT FOR 3 DAYS, CAN. INCREASE IF SYMPTOMS REMAIN 90 Capsule 1 04/25/2023 Active sulfaSALAzine (AZULFIDINE) 500 MG tablet take 2 tablets by mouth twice daily 360 Tablet 3 12/23/2023 Active DULoxetine (CYMBALTA) 60 MG capsuleIndicati ons:Chronic pain syndrome Take 1 Capsule (60 mg) by mouth daily. 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 Speech disturbance 06/20/2021 Dysphonia 06/20/2021 Vocal cord dysfunction 06/20/2021 Myofascial pain 01/02/2018 Diffuse pain 11/07/2017 Personal history of malignant neoplasm of breast 08/11/2017 Overview (08/11/2017): Added automatically from request for surgery [id number] Ventral hernia without obstruction or gangrene 1 Left-sided chest wall pain 01/15/2017 H/O breast reconstruction 11/28/2016 Overview (11/28/2016): Added automatically from request for surgery [id number] Breast hematoma 10/15/2016 Overview (10/15/2016): Added automatically from request for surgery [id number] Rash of body 06/18/2016 H/O bilateral mastectomy [...] back pain 06/13/2015 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 Care Coordination (Community Resources, Specialists, Home Health Agency, Caregiver, Supply Vendor, Information Systems Specialist) Contact Name SANKET Obtained? Phone Number Role in Care Comments Lucy Harley RN (Michelle) N/A [phone] DCM Action Plan Donte's Chosen Goal: Brynn will work with GRISELDA on her goals Detailed Action Steps to Achieve Goal & Who Will Complete: Confidence Level: On a scale of 1-10, Donte's confidence level to achieve this goal is 7 Date Goal Achieved Additional Patient Instructions Follow-Up RN will follow-up with DCM every 3 months and prn. Fibromyalgia 01/02/2017 01/17/2017 Weakness 06/05/2016 04/04/2017 Left shoulder pain 06/05/2016 7 CAREPLAN: [facility]NA[facility] 6 10/09/2017 Bilateral hip pain 04/12/2014 5 Encounters Date Type Department Care Team Description 04/04/2024 4:35 PM BIG DATA PLATFORM ARCHITECT [place] [facility] [address] [place] [address] Rand Smyth MD Chief Comp: Medication Questions 04/02/2024 Refill [facility] [address] [place] [address] Rand Smyth MD Refill (TIROSINT 112 MCG tablet) from Last 3 Months Immunizations Immunization Administration Dates Next Due Flu Vac (3+ yrs) 02/16/2014 Flu Vac Preserv Free (3+yrs) 03/22/2020, 03/03/2018,05/02/2017,2014 Influenza IIV4 (Quadrivalent ) 0.5mL (13328) 02/09/2017(Deferred: Patient Refused) MMR 03/04/2005 Moderna Monovalent 12+ 12/11/2020,11/13/2020 Td (7+ yrs) 1969 Tdap 11/08/2021,10/15/2010 Zoster, Unspecified Formulation 09/13/2020(Defer red: Other) Family History Medical History Relation Name Comments Cancer, Other Father Oropharyngeal cancer Cataract Father Glaucoma Father Cancer, Bladder Mother ADHD Brother Asthma Daughter Cancer, Other Other Paternal cousi n; esophageal cancer; exposed to 01/06 toxins Cancer, Breast Paternal Aunt ADHD Son Migraines Son Cancer, Ovary Negative Family History Relation Name Status Comments Father Alive Mother Alive Brother Alive Daughter Maternal Grandfather Maternal Grandmother Other Paternal Aunt Paternal Grandfather Paternal Grandmother Son Social History Tobacco Use Types Packs/Day Years Used Date Smoking Tobacco: Never Smokeless Tobacco: Never Tobacco Cessation:Counseling Given: Not Answered Alcohol Use Standard Drinks/Week Comments Yes 1 (1 standard drink = 0.6 oz pur e alcohol) Gives me heartburn recently PHQ-2 Answer Date Recorded PHQ-2 Score 1 04/01/2023 Comments No Sex and Gender Information Value Date Recorded Sex Assigned at Not on file Legal Sex Female 5:53 AM CDT Gender Identity Not on file Sexual Orientation Not on file Last Filed Vital Signs Vital Sign Reading Time Taken Comments Blood Pressure 135/84 11/07/2023 3:55 PM CDT Pulse 91 11/07/2023 3:55 PM CDT Temperature 36.6 C (97.9 F) 11/07/2023 3:55 PM CDT Respiratory Rate 12 11/07/2023 3:55 PM CDT Oxygen Saturation 98% 11/07/2023 3:55 PM CDT Inhaled Oxygen Concentration - - Weight 70.5 kg (155 lb 6.4 oz) 11/07/2023 3:55 P M CDT Height 160 cm (5' 3) 04/10/2023 9:48 AM BIG DATA PLATFORM ARCHITECT Body Mass Index 27.53 04/10/2023 9:48 AM BIG DATA PLATFORM ARCHITECT Plan of Treatment Upcoming Encounters Date Type Department Care Team (Late st Contact Info) Description 06/23/2024 9:00 AM BIG DATA PLATFORM ARCHITECT Telemedicine [facility] [address] [place] [address] Rand Smyth MD [address] [place] [address] Health Maintenance Due Date Last Done Comments HepB (1) 1988 Pneumococcal 50+ Yrs (1 of 1 - PCV) 11/30/2019 Zoster/Shingles (1 of 2) 11/30/2019 Colonoscopy 10/20/2023 10/19/2018 COVID-19 Vaccine (3 - season) 2023 12/11/2020, 11/13/2020 Influenza (#1) 2023 03/22/2020, 11/0 09/2017, 05/02/2017, Additional history exists Adult Preventive Visit 04/01/2024 04/01/2023 Cholesterol 11/08/2026 11/08/2021 DTaP/Tdap/Td (3 - Tdap) 11/09/2031 11/09/19, 10/15/2010, 1969 HIV Screening (Preventive Services) Completed 11/08/2021 Hep C Screening (Preventive Services) Completed 11/08/2021 HepA Aged Out No longer eligi ble based on patient's age to complete this topic Hib Aged Out No longer eligi ble based on patient's age to complete this topic IPV (Polio) Aged Out No longer eligi ble based on patient's age to complete this topic MCV4 Aged Out No longer eligi ble based on patient's age to complete this topic Meningococcal B Aged Out No longer el igible based on patient's age to complete this topic Pneumococcal Aged Out No longer eligi ble based on patient's age to complete this topic Medical Devices Implanted Type Area Oracle Engineer Device Identifier Shelf Expiration Date Model / Serial / Lot [id number] - [id number] Implanted:Qty : 1 on 01/11/2016 by Stacey Raymond MD at [facility] BIOLOGIC Left: BREAST LifeCell Emerson 09/25/2017 [id number] / / [id number] Alloderm Select Implanted:Qty : 1 on 01/11/2016 by Stacey Raymond MD at [facility] BIOLOGIC Right: BREAST LifeCell Emerson 09/25/2017 [id number] / / [id number] Spring Morales High Profile Implanted:Qty : 1 on 01/11/2016 by Stacey Raymond MD at [facility] DEVICE Right: BREAST 10/03/2018 [id number] / [id number] / [id number] Mscf-365 - [id number] Implanted:Qty : 1 on 12/17/2016 at [facility] DEVICE 09/06/2021 SCF-365 / [id number] / Natrelle Inspira Implanted:Qty : 1 on 02/07/2017 by Eddi Delarosa MD at [facility] DEVICE Right: BREAST Allergan Inc 06/01/2021 SCX 420 / [id number] / Description:NATRELLE INSPIRA COHESIVE BREAST IMPLANT 420CC Mesh Prolite 10x14 - [id number] Implanted:Qty : 1 on 02/07/2017 by Rigoberto Hylton MD at [facility] DEVICE Right: ABDOMEN Getinge Maquet Vascular System 08/22/2021 [id number] / / [id number] Natrelle Inspira Cohesive Breast Implant 420cc Implanted:Qty : 1 on 02/07/2017 by Rigoberto Hylton MD at [facility] DEVICE Left: BREAST SCX-420 / [id number] / Imp Mamm Xfull Smth 420cc - [id number] Implanted:Qty : 1 on 01/27/2018 by Eddi Delarosa MD at [facility] DEVICE Right: BREAST Allergan Inc 03/01/2022 SCX-420 / [id number] / Explanted Type Area Oracle Engineer Device Identifier Shelf Expiration Date Model / Serial / Lot [id number] - [id number] Implanted:Qty: 1 on 01/11/2016 by Stacey Raymond MD at [facility] Explanted:Qty: 1 on 09/18/2016 at [facility] DEVICE Left: BREAST [employer] 10/03/2018 [id number] / [id number] Description:TONY ROUSE PROF ILE TISSUE SPECTROGRAPHER [id number] - [id number] Implanted:Qty: 1 on 09/18/2016 by Eddi Delarosa MD at [facility] Explanted:Qty: 1 on 12/17/2016 at [facility] DEVICE Left: BREAST XX-Gardena Emerson 07/03/2020 [id number] / [id number] Description:SPRING Lazaro IGH PROFILE TISSUE SPECTROGRAPHER Procedures Procedure Name Priority Date/Time Associated Diagnosis Comments HIV 1/2 AG/AB 4TH GEN Routine 11/08/2021 9:43 AM CDT Screening for HIV (human immunodeficiency virus) HEPATITIS C ANTIBODY, WITH REFLEX Routine 11/08/2021 9:43 AM CDT Need for hepatitis C screening test LIPID PANEL & DIRECT LDL (IF NEEDED) Routine 11/08/2021 9:43 AM CDT Screening for cholesterol level COLONOSCOPY S 10/19/2018 12:00 AM CDT from Last 3 Months or Most Recently Relevant to Health Maintenance Results * HIV 1/2 Ag/Ab 4th Generation (11/08/2021 9:43 AM CDT) HIV 1/2 Antigen/Anti body (4th generation) Negative (Non Reactive) Negative (Non Reactive) 11/08/2021 3:48 PM CDT [facility] Comment:HIV-1 p24 Antigen an d HIV-1/HIV-2 Antibody not detected Blood Venipuncture / Unknown 11/08/2021 9:43 AM CDT 11/08/2021 9:44 AM CDT Rand Smyth MD LAB_1 Final Result [facility] [address] [address], [facility] [phone] * (ABNORMAL) Lipid Panel and Direct LDL(If Needed) (11/08/2021 9:43 AM CDT) Cholesterol 287(H) 0 - 199 mg/dL 11/08/2021 4:00 PM CDT [facility] Triglyceride 100 <=149 mg/dL 11/08/2021 4:00 PM CDT [facility] HDL Cholesterol 66 >=40 mg/dL 11/08/2021 4:00 PM CDT [facility] LDL, Calculated 201(H) <130 mg/dL 11/08/2021 4:00 PM CDT [facility] Non HDL Chol, Calculated 221(H) <=159 mg/dL 11/08/2021 4:00 PM CDT [facility] Cholesterol/HDL Ratio 4.3 11/08/2021 4:00 PM T [facility] Hours Fasting 0 11/08/2021 4:00 PM T [facility] Blood Venipuncture / Unknown 11/08/2021 9:43 AM CDT 11/08/2021 9:44 AM CDT Rand Smyth MD LAB_1 Final Result Performing Organization Address City/[facility]/ZIP Co de Phone Number [facility] [address] [address], [facility] [phone] [facility] [address] [place] [address] * Hepatitis C Antibody, with Reflex (11/08/2021 9:43 AM CDT) Hepatitis C Antibody Negative (Non Reactive) Negative (Non Reactive) 11/08/2021 3:46 PM CDT [facility] Comment:Antibodies to HCV no t detected. Does not exclude the possiblity of exposure to HCV. Blood Venipuncture / Unknown 11/08/2021 9:43 AM CDT 11/08/2021 9:44 AM CDT us Rand Smyth MD LAB_1 Final Result Performing Organization Address City/State/[facility] Co de Phone Number [facility] [address] [address], [facility] [phone] * COLONOSCOPY S (10/19/2018 12:00 AM CDT) 10/19/2018 us Josh Manzanares MD DUMMY/OTHER/ AR Final Result from Last 3 Months or Most Recently Relevant to Health Maintenance Insurance MEDICARE PART A [facility] OUT OF STATE Advance Directives * Full Code (Latest Code Status on File) Date Activated Date Inactivated Comments 02/07/2017 7:57 PM 02/12/2017 11:28 AM * Full Code Date Activated Date Inactivated Comments 02/07/2017 11:37 AM 02/07/2017 7:57 PM * Full Code Date Activated Date Inactivated Comments 01/15/2017 6:44 PM 01/16/2017 8:30 PM * Full Code Date Activated Date Inactivated Comments 12/15/2016 5:05 PM 12/18/2016 5:54 PM * Full Code Date Activated Date Inactivated Comments 04/08/2016 5:36 AM 04/15/2016 6:06 PM Care Teams Lepidopterist Relationship Specialty Start Date End Date Rand Smyth MD [address] [place] [address] PCP - General Internal Medicine/Pediatrics 05/31/22
--- OUTSIDE RECORDS SUMMARY | 2024-06-22 05:28 | XMS_ITS | Encounter Summary ---
Author Organization [employer] Address [address] [place] [address] Care Team Providers Care Shared Services Manager Name Role Phone Rand Smyth MD Primary Care Provider [phone] Encounter Details Date Type Department Care Team (Late st Contact Info) Description 04/09/2016 Consent for Procedure/Treatme nt [facility] Department INFORMED CONSENT RECORD Social [...] st Contact Info) Description 06/23/2024 9:00 AM 6TH GRADE TEACHER Telemedicine [facility] [address] [place] [address] Rand Smyth MD [address] [place] [address] documented as of this encounter Visit Diagnoses Not on filedocumented in this encounter Additional Health Concerns Infection Onset Date Last Indicated Resolved Time COVID19 03/13/2020 03/13/2020 04/03/2020 3:17 AM 6TH GRADE TEACHER R/O COVID19 04/04/2021 04/04/2021 04/05/2021 8:29 PM 6TH GRADE TEACHER COVID19 04/04/2021 04/04/2021 04/24/2021 3:17 AM 6TH GRADE TEACHER documented as of this encounter Care Teams Shared Services Manager Relationship Specialty Start Date End Date Rand Smyth MD [address] [address] PCP - General Internal Medicine/Pediatrics 05/31/22 documented as of this encounter
--- OUTSIDE RECORDS SUMMARY | 2024-06-22 05:28 | XMS_ITS | Encounter Summary ---
Author Organization [employer] Address [address] [place] [address] Care Team Providers Care Bale Coverer Name Role Phone Rand Smyth MD Primary Care Provider [phone] Encounter Details Date Type Department Care Team (Late st Contact Info) Description 09/18/2016 Consent for Procedure/Treatme nt [facility] Department INFORMED CONSENT RECORD Social History Tobacco [...] st Contact Info) Description 06/23/2024 9:00 AM GUIDE RAIL CLEANER Telemedicine [facility] [address] [place] [address] Rand Smyth MD [address] [place] [address] documented as of this encounter Visit Diagnoses Not on filedocumented in this encounter Additional Health Concerns Infection Onset Date Last Indicated Resolved Time COVID19 03/13/2020 03/13/2020 04/03/2020 3:17 AM GUIDE RAIL CLEANER R/O COVID19 04/04/2021 04/04/2021 04/05/2021 8:29 PM GUIDE RAIL CLEANER COVID19 04/04/2021 04/04/2021 04/24/2021 3:17 AM GUIDE RAIL CLEANER documented as of this encounter Care Teams Bale Coverer Relationship Specialty Start Date End Date Rand Smyth MD [address] [place] [address] PCP - General Internal Medicine/Pediatrics 05/31/22 documented as of this encounter
--- OUTSIDE RECORDS SUMMARY | 2024-06-22 05:28 | XMS_ITS | Encounter Summary ---
Author Organization [employer] Address [address] [place] [address] Care Team Providers Care Laundry Operator Wash Room Name Role Phone Rand Smyth MD Primary Care Provider + [phone] Encounter Details Date Type Department Care Team (Late st Contact Info) Description 04/08/2016 Home Visit [facility] [address] [place] [address], [address] [place] [address] Angela Raymond RN [address] [place] [address] Social History Tobacco Use Types Packs/Day Years [...] Progress Notes * Angela Raymond RN - 04/08/2016 7:59 PM CST S - Transfer Summary B - Client seen by [facility] for wound care. A - Client admitted to [facility] on 04/07/16 for unkn reason. R - Transfer all cares to inpatient. JFAmber 04/08/16 RITY FIELD SUPERVISOR documented in this encounter Plan of Treatment Upcoming Encounters Date Type Department Care Team (Late st Contact Info) Description 06/23/2024 9:00 AM SECURITY FIELD SUPERVISOR Telemedicine [facility] [address] [place] [address] Rand Smyth MD [address] [place] [facility] [place] [address] documented as of this encounter Visit Diagnoses Not on filedocumented in this encounter Additional Health Concerns Infection Onset Date Last Indicated Resolved Time COVID19 03/13/2020 03/13/2020 04/03/2020 3:17 AM SECURITY FIELD SUPERVISOR R/O COVID19 04/04/2021 04/04/2021 04/05/2021 8:29 PM SECURITY FIELD SUPERVISOR COVID19 04/04/2021 04/04/2021 04/24/2021 3:17 AM SECURITY FIELD SUPERVISOR documented as of this encounter Care Teams Laundry Operator Wash Room Relationship Specialty Start Date End Date Rand Smyth MD [address] [place] [address] PCP - General Internal Medicine/Pediatrics 05/31/22 documented as of this encounter
--- OUTSIDE RECORDS SUMMARY | 2024-06-22 05:28 | XMS_ITS | Encounter Summary ---
Author Organization [employer] Address [address] [place] [address] Care Team Providers Care Cloth Covered Helmet Puller Name Role Phone Rand Smyth MD Primary Care Provider + [phone] Encounter Details Date Type Department Care Team (Late st Contact Info) Description 09/04/2015 Consent for Procedure/Treatme nt [facility] INFORMED [...] st Contact Info) Description 06/23/2024 9:00 AM ADULT DAYCARE COORDINATOR Telemedicine [facility] [address] [place] [address] Rand Smyth MD [address] [place] [address] documented as of this encounter Visit Diagnoses Not on filedocumented in this encounter Additional Health Concerns Infection Onset Date Last Indicated Resolved Time COVID19 03/13/2020 03/13/2020 04/03/2020 3:17 AM ADULT DAYCARE COORDINATOR R/O COVID19 04/04/2021 04/04/2021 04/05/2021 8:29 PM ADULT DAYCARE COORDINATOR COVID19 04/04/2021 04/04/2021 04/24/2021 3:17 AM ADULT DAYCARE COORDINATOR documented as of this encounter Care Teams Cloth Covered Helmet Puller Relationship Specialty Start Date End Date Rand Smyth MD [address] [place] [address] PCP - General Internal Medicine/Pediatrics 05/31/22 documented as of this encounter
--- OUTSIDE RECORDS SUMMARY | 2024-06-22 05:28 | XMS_ITS | Encounter Summary ---
Author Organization [employer] Address [address] [place] [address] Care Team Providers Care Supervisor Cemetery Workers Name Role Phone Rand Smyth MD Primary Care Provider + [phone] Encounter Details Date Type Department Care Team (Late Contact Info) Description 04/11/[address] [id number] Josh Manzanares MD [address] [facility] [place] [address] 02-18-16 HOME HEALTH PLAN OF TREATMENT Social History [...] (Late Contact Info) Description 06/23/2024 9:00 AM DOCKETING SPECIALIST Telemedicine [facility] [place] [address] [place] [address] Rand Smyth MD [address] [place] [address] documented as of this encounter Visit Diagnoses Not on filedocumented in this encounter Additional Health Concerns Infection Onset Date Last Indicated Resolved Time COVID19 03/13/2020 03/13/2020 04/03/2020 3:17 AM DOCKETING SPECIALIST R/O COVID19 04/04/2021 04/04/2021 04/05/2021 8:29 PM DOCKETING SPECIALIST COVID19 04/04/2021 04/04/2021 04/24/2021 3:17 AM DOCKETING SPECIALIST documented as of this encounter Care Teams Supervisor Cemetery Workers Relationship Specialty Start Date End Date Rand Smyth MD [address] [place] [address] PCP - General Internal Medicine/Pediatrics 05/31/22 documented as of this encounter
[2024-06-22 05:29] VITALS: BP 134/86; PULSE 86; RESP 20; TEMP 36.6; O2SAT 97; BMI 24.2
--- OUTSIDE RECORDS SUMMARY | 2024-06-22 06:04 | XMS_ITS | Encounter Summary ---
Author Organization [employer] Address [address] [place] [address] Care Team Providers Care Health Information Systems Technician Name Role Phone Rand Smyth MD Primary Care Provider + [phone] Encounter Details Date Type Department Care Team [...] st Contact Info) Description 06/23/2024 9:00 AM SALES PROJECT COORDINATOR Telemedicine [facility] [address] [place] [address] Rand Smyth MD [address] [place] [address] documented as of this encounter Visit Diagnoses Not on filedocumented in this encounter Additional Health Concerns Infection Onset Date Last Indicated Resolved Time COVID19 03/13/2020 03/13/2020 04/03/2020 3:17 AM SALES PROJECT COORDINATOR R/O COVID19 04/04/2021 04/04/2021 04/05/2021 8:29 PM SALES PROJECT COORDINATOR COVID19 04/04/2021 04/04/2021 04/24/2021 3:17 AM SALES PROJECT COORDINATOR documented as of this encounter Care Teams Health Information Systems Technician Relationship Specialty Start Date End Date Rand Smyth MD [address] [place] [address] PCP - General Internal Medicine/Pediatrics 05/31/22 documented as of this encounter
--- OUTSIDE RECORDS SUMMARY | 2024-06-22 06:04 | XMS_ITS | Encounter Summary ---
Author Organization [employer] Address [address] [place] [address] Care Team Providers Care Application Defense Manager Name Role Phone Rand Smyth MD Primary Care Provider + [phone] Encounter Details Date Type Department Care Team [...] st Contact Info) Description 06/23/2024 9:00 AM SPIRITUAL CARE COORDINATOR Telemedicine [facility] [place] [address] [place] [address] Rand Smyth MD [address] [place] [address] documented as of this encounter Visit Diagnoses Not on filedocumented in this encounter Additional Health Concerns Infection Onset Date Last Indicated Resolved Time COVID19 03/13/2020 03/13/2020 04/03/2020 3:17 AM SPIRITUAL CARE COORDINATOR R/O COVID19 04/04/2021 04/04/2021 04/05/2021 8:29 PM SPIRITUAL CARE COORDINATOR COVID19 04/04/2021 04/04/2021 04/24/2021 3:17 AM SPIRITUAL CARE COORDINATOR documented as of this encounter Care Teams Application Defense Manager Relationship Specialty Start Date End Date Rand Smyth MD [address] [place] [address] PCP - General Internal Medicine/Pediatrics 05/31/22 documented as of this encounter
--- OUTSIDE RECORDS SUMMARY | 2024-06-22 06:04 | XMS_ITS | Encounter Summary ---
Author Organization [employer] Address [address] [place] [address] Care Team Providers Care Triple Valve Tester Name Role Phone Rand Smyth MD Primary Care Provider + [phone] Encounter Details Date Type Department Care Team [...] st Contact Info) Description 06/23/2024 9:00 AM BRUSH CLEANER Telemedicine [facility] [address] [place] [address] Rand Smyth MD [address] [place] [address] documented as of this encounter Visit Diagnoses Not on filedocumented in this encounter Additional Health Concerns Infection Onset Date Last Indicated Resolved Time COVID19 03/13/2020 03/13/2020 04/03/2020 3:17 AM BRUSH CLEANER R/O COVID19 04/04/2021 04/04/2021 04/05/2021 8:29 PM BRUSH CLEANER COVID19 04/04/2021 04/04/2021 04/24/2021 3:17 AM BRUSH CLEANER documented as of this encounter Care Teams Triple Valve Tester Relationship Specialty Start Date End Date Rand Smyth MD [address] [place] [address] PCP - General Internal Medicine/Pediatrics 05/31/22 documented as of this encounter
--- OUTSIDE RECORDS SUMMARY | 2024-06-22 06:04 | XMS_ITS | Encounter Summary ---
Author Organization [employer] Address [address] [place] [address] Care Team Providers Care Radio Station Engineer Name Role Phone Rand Smyth MD Primary Care Provider + [phone] Encounter Details Date Type Department Care Team (Late st Contact Info) Description 02/19/2016 [facility] Visit [facility] [address] [place] [address], [address] [place] [address] Timmy Johnson, RN [address] [place], [place] [id number] Social History Tobacco Use Types Packs/Day Years [...] as of this encounter Progress Notes * Timmy Johnson, RN - 02/19/2016 2:05 AM CDT [...] wound vac on abdomen 3x/week. Hospital/TCU dates: [facility] 02/03/2016-02/18/2016 [facility] 01/29/2016-01/31/2016 [facility] 01/11/2016-01/13/2016 Clinic referral: Blanca Pina MD. [facility]. Living/CG situation: Client lives in two story home with and sons with several pets. Family assists with personal cares and provides support. Language/lot porter: Wolof, no lot porter needed. *ASSESSMENT: T:98.7 F P: 80 bpm RR: 12 BP: 108/68 R. arm Pain: Cramping pain that is present all the time. Location: Abdomen, wound site. Ratin/10. Relieved by and frequency of pain meds: Client gets some relief from pain meds. Oxycontin and Oxycodone. Cardiac: Regular pulse, no edema in RLE, +1 edema in LLE, VIR[place] LINE ATTENDANT<3 seconds. Client denies chest pain. Pulmonary: LSC, [...] and PRN. Services declined: PT, OT, ST, JAZZ MUSICIAN, and SLITTING MACHINE OPERATOR. Payer: Commercial Does not meet Medicare coverage criteria because: Age Timmy Johnson RN on 02/18/2016 documented in this encounter Plan of Treatment Upcoming Encounters Date Type Department Care Team (Late st Contact Info) Description 06/23/2024 9:00 AM WAREHOUSE OPERATIONS MANAGER Telemedicine [facility] [address] [place] [address] Rand Smyth MD [address] [place] [address] documented as of this encounter Visit Diagnoses Not on filedocumented in this encounter Additional Health Concerns Infection Onset Date Last Indicated Resolved Time COVID19 03/13/2020 03/13/2020 04/03/2020 3:17 AM WAREHOUSE OPERATIONS MANAGER R/O COVID19 04/04/2021 04/04/2021 04/05/2021 8:29 PM WAREHOUSE OPERATIONS MANAGER COVID19 04/04/2021 04/04/2021 04/24/2021 3:17 AM WAREHOUSE OPERATIONS MANAGER documented as of this encounter Care Teams Radio Station Engineer Relationship Specialty Start Date End Date Rand Smyth MD [address] [place] [address] PCP - General Internal Medicine/Pediatrics 05/31/22 documented as of this encounter
--- OUTSIDE RECORDS SUMMARY | 2024-06-22 06:04 | XMS_ITS | Encounter Summary ---
Author Organization [employer] Address [address] [place] [address] Care Team Providers Care Metallurgical Engineer Name Role Phone Rand Smyth MD Primary Care Provider + [phone] Encounter Details Date Type Department Care Team [...] st Contact Info) Description 06/23/2024 9:00 AM CINDER CRUSHER OPERATOR Telemedicine [facility] [address] [place] [address] Rand Smyth MD [address] [place] [address] documented as of this encounter Visit Diagnoses Not on filedocumented in this encounter Additional Health Concerns Infection Onset Date Last Indicated Resolved Time COVID19 03/13/2020 03/13/2020 04/03/2020 3:17 AM CINDER CRUSHER OPERATOR R/O COVID19 04/04/2021 04/04/202104/05/2021 8:29 PM CINDER CRUSHER OPERATOR COVID19 04/04/2021 04/04/2021 04/24/2021 3:17 AM CINDER CRUSHER OPERATOR documented as of this encounter Care Teams Metallurgical Engineer Relationship Specialty Start Date End Date Rand Smyth MD [address] [address] PCP - General Internal Medicine/Pediatrics 05/31/22 documented as of this encounter
--- OUTSIDE RECORDS SUMMARY | 2024-06-22 06:04 | XMS_ITS | Encounter Summary ---
Author Organization [employer] Address [address] [place] [address] Care Team Providers Care Cardiac Cath Lab Manager Name Role Phone Rand Smyth MD Primary Care Provider + [phone] Encounter Details Date Type Department Care Team [...] st Contact Info) Description 06/23/2024 9:00 AM SHEET CUTTER [place] [facility] [address] [place] [address] Rand Smyth MD [address] [place] [address] documented as of this encounter Visit Diagnoses Not on filedocumented in this encounter Additional Health Concerns Infection Onset Date Last Indicated Resolved Time COVID19 03/13/2020 03/13/2020 04/03/2020 3:17 AM SHEET CUTTER R/O COVID19 04/04/2021 04/04/2021 04/05/2021 8:29 PM SHEET CUTTER COVID19 04/04/2021 04/04/2021 04/24/2021 3:17 AM SHEET CUTTER documented as of this encounter Care Teams Cardiac Cath Lab Manager Relationship Specialty Start Date End Date Rand Smyth MD [address] [place] [address] PCP - General Internal Medicine/Pediatrics 05/31/22 documented as of this encounter
--- OUTSIDE RECORDS SUMMARY | 2024-06-22 06:04 | XMS_ITS | Encounter Summary ---
Author Organization [employer] Address [address] [place] [address] Care Team Providers Care Baccarat Dealer Name Role Phone Rand Smyth MD Primary Care Provider + [phone] Encounter Details Date Type Department Care Team [...] st Contact Info) Description 06/23/2024 9:00 AM BUSINESS DEVELOPMENT CONSULTANT Telemedicine [facility] [address] [place] [address] Rand Smyth MD [address] [place] [address] documented as of this encounter Visit Diagnoses Not on filedocumented in this encounter Additional Health Concerns Infection Onset Date Last Indicated Resolved Time COVID19 03/13/2020 03/13/2020 04/03/2020 3:17 AM BUSINESS DEVELOPMENT CONSULTANT R/O COVID19 04/04/2021 04/04/2021 04/05/2021 8:29 PM BUSINESS DEVELOPMENT CONSULTANT COVID19 04/04/2021 04/04/2021 04/24/2021 3:17 AM BUSINESS DEVELOPMENT CONSULTANT documented as of this encounter Care Teams Baccarat Dealer Relationship Specialty Start Date End Date Rand Smyth MD [address] [place] [address] PCP - General Internal Medicine/Pediatrics 05/31/22 documented as of this encounter
--- OUTSIDE RECORDS SUMMARY | 2024-06-22 06:04 | XMS_ITS | Encounter Summary ---
Author Organization [email or web address] Address [address] [place] [address] Care Team Providers Care Superintendent House Name Role Phone Rand Smyth MD Primary Care Provider + [phone] Encounter Details Date Type Department Care Team [...] st Contact Info) Description 06/23/2024 9:00 AM MUSIC VIDEO PRODUCER [place]medicine [facility] [address] [place] [address] Rand Smyth MD [address] [place] [address] documented as of this encounter Visit Diagnoses Not on filedocumented in this encounter Additional Health Concerns Infection Onset Date Last Indicated Resolved Time COVID19 03/13/2020 03/13/2020 04/03/2020 3:17 AM MUSIC VIDEO PRODUCER R/O COVID19 04/04/2021 04/04/2021 04/05/2021 8:29 PM MUSIC VIDEO PRODUCER COVID19 04/04/2021 04/04/2021 04/24/2021 3:17 AM MUSIC VIDEO PRODUCER documented as of this encounter Care Teams Superintendent House Relationship Specialty Start Date End Date Rand Smyth MD [address] [place] [address] PCP - General Internal Medicine/Pediatrics 05/31/22 documented as of this encounter
--- OUTSIDE RECORDS SUMMARY | 2024-06-22 06:04 | XMS_ITS | Encounter Summary ---
Author Organization [employer] Address [address] [place] [address] Care Team Providers Care Commercial Internship Name Role Phone Rand Smyth MD Primary Care Provider [phone] Encounter Details Date Type Department Care Team [...] st Contact Info) Description 06/23/2024 9:00 AM MARKETING DESIGNER Telemedicine [facility] [place] [address] [place] [address] Rand Smyth MD [address] [place] [address] documented as of this encounter Visit Diagnoses Not on filedocumented in this encounter Additional Health Concerns Infection Onset Date Last Indicated Resolved Time COVID19 03/13/2020 03/13/2020 04/03/2020 3:17 AM MARKETING DESIGNER R/O COVID19 04/04/2021 04/04/2021 04/05/2021 8:29 PM MARKETING DESIGNER COVID19 04/04/2021 04/04/2021 04/24/2021 3:17 AM MARKETING DESIGNER documented as of this encounter Care Teams Commercial Internship Relationship Specialty Start Date End Date Rand Smyth MD [address] [place] [address] PCP - General Internal Medicine/Pediatrics 05/31/22 documented as of this encounter
--- OUTSIDE RECORDS SUMMARY | 2024-06-22 06:04 | XMS_ITS | Encounter Summary ---
Author Organization [employer] Address [address] [place] [address] Care Team Providers Care Project Safety Manager Name Role Phone Rand Smyth MD Primary Care Provider + [phone] Encounter Details Date Type Department Care Team (Late Contact Info) Description 05/10/[address] [phone] Josh Manzanares MD [address] [facility] [place] [address] 04-18-16 HOME HEALTH PLAN OF TREATMENT Social [...] (Late Contact Info) Description 06/23/2024 9:00 AM HYDRO GENERATION MANAGER Telemedicine [facility] [place] [address] [place] [address] Rand Smyth MD [address] [place] [address] documented as of this encounter Visit Diagnoses Not on filedocumented in this encounter Additional Health Concerns Infection Onset Date Last Indicated Resolved Time COVID19 03/13/2020 03/13/2020 04/03/2020 3:17 AM HYDRO GENERATION MANAGER R/O COVID19 04/04/2021 04/04/2021 04/05/2021 8:29 PM HYDRO GENERATION MANAGER COVID19 04/04/2021 04/04/2021 04/24/2021 3:17 AM HYDRO GENERATION MANAGER documented as of this encounter Care Teams Project Safety Manager Relationship Specialty Start Date End Date Rand Smyth MD [address] [place] [address] PCP - General Internal Medicine/Pediatrics 05/31/22 documented as of this encounter
--- OUTSIDE RECORDS SUMMARY | 2024-06-22 06:04 | XMS_ITS | Encounter Summary ---
Author Organization [employer] Address [address] [place] [address] Care Team Providers Care Medical Claims Manager Name Role Phone Rand Smyth MD Primary Care Provider + [phone] Encounter Details Date Type Department Care Team (Late st Contact Info) Description 04/16/2016 [facility] Visit [facility] [address] [place] [address] [address] [place] [address] Angela Raymond RN [address] [place] [id number] Social History Tobacco Use Types Packs/Day Years [...] in single family home with and children. Language/motor vehicle parts interpreter: Bruneian *ASSESSMENT: T: 98.8 P: 112 R: 16 [...] in place that is being managed by [facility]. Lab/Dx: NA Medication Review: No [...] following services: Nursing Services declined: none Payer: [employer] JUDAH Garcia 04/16/16 CERTIFICATION FOR CONTINUED SERVICES: VSOC AND PHYSICIAN ESTIMATE OF CONTINUED NEED FOR SKILLED CARE OBTAINED. ESTIMATE OF NEED = 60 DAYS. ATIC CRITIC documented in this encounter Plan of Treatment Upcoming Encounters Date Type Department Care Team (Late st Contact Info) Description 06/23/2024 9:00 AM DRAMATIC CRITIC Telemedicine [facility] [address] [place] [address] Rand Smyth MD [address] [place] [address] documented as of this encounter Visit Diagnoses Not on filedocumented in this encounter Additional Health Concerns Infection Onset Date Last Indicated Resolved Time COVID19 03/13/2020 03/13/2020 04/03/2020 3:17 AM DRAMATIC CRITIC R/O COVID19 04/04/2021 04/04/2021 04/05/2021 8:29 PM DRAMATIC CRITIC COVID19 04/04/2021 04/04/2021 04/24/2021 3:17 AM DRAMATIC CRITIC documented as of this encounter Care Teams Medical Claims Manager Relationship Specialty Start Date End Date Rand Smyth MD [address] [place] [address] PCP - General Internal Medicine/Pediatrics 05/31/22 documented as of this encounter
--- OUTSIDE RECORDS SUMMARY | 2024-06-22 06:04 | XMS_ITS | Encounter Summary ---
Author Organization [employer] Address [address] [place] [address] Care Team Providers Care Guest Services Name Role Phone Rand Smyth MD Primary Care Provider + [phone] Encounter Details Date Type Department Care Team [...] st Contact Info) Description 06/23/2024 9:00 AM ELECTROLYTIC DE SCALER Telemedicine [facility] [address] [place] [address] Rand Smyth MD [address] [place] [address] documented as of this encounter Visit Diagnoses Not on filedocumented in this encounter Additional Health Concerns Infection Onset Date Last Indicated Resolved Time COVID19 03/13/2020 03/13/2020 04/03/2020 3:17 AM ELECTROLYTIC DE SCALER R/O COVID19 04/04/2021 04/04/2021 04/05/2021 8:29 PM ELECTROLYTIC DE SCALER COVID19 04/04/2021 04/04/2021 04/24/2021 3:17 AM ELECTROLYTIC DE SCALER documented as of this encounter Care Teams Guest Services Relationship Specialty Start Date End Date Rand Smyth MD [address] [place] [address] PCP - General Internal Medicine/Pediatrics 05/31/22 documented as of this encounter
--- OUTSIDE RECORDS SUMMARY | 2024-06-22 06:04 | XMS_ITS | Encounter Summary ---
Author Organization [email or web address] Address [address] [place] [address] Care Team Providers Care Electrical And Electronic Assembler Name Role Phone Rand Smyth MD Primary Care Provider + [phone] Encounter Details Date Type Department Care Team [...] st Contact Info) Description 06/23/2024 9:00 AM WATER MANAGER Telemedicine [facility] [address] [place] [address] Rand Smyth MD [address] [place] [address] documented as of this encounter Visit Diagnoses Not on filedocumented in this encounter Additional Health Concerns Infection Onset Date Last Indicated Resolved Time COVID19 03/13/2020 03/13/2020 04/03/2020 3:17 AM WATER MANAGER R/O COVID19 04/04/2021 04/04/2021 04/05/2021 8:29 PM WATER MANAGER COVID19 04/04/2021 04/04/2021 04/24/2021 3:17 AM WATER MANAGER documented as of this encounter Care Teams Electrical And Electronic Assembler Relationship Specialty Start Date End Date Rand Smyth MD [address] [place] [address] PCP - General Internal Medicine/Pediatrics 05/31/22 documented as of this encounter
--- OUTSIDE RECORDS SUMMARY | 2024-06-22 06:04 | XMS_ITS | Encounter Summary ---
Author Organization [employer] Address [address] [place] [address] Care Team Providers Care Fleet Maintenance Foreman Name Role Phone Rand Smyth MD Primary Care Provider + [phone] Encounter Details Date Type Department Care Team (Late st Contact Info) Description 05/14/2016 Home Visit [facility] [address] [place] [address], [address] [place] [address] Angela Raymond RN [address] [place] [phone] Social History Tobacco Use Types Packs/Day Years [...] homebound. R - Discharge from agency. JFoxRN N REMOVER documented in this encounter Plan of Treatment Upcoming Encounters Date Type Department Care Team (Late st Contact Info) Description 06/23/2024 9:00 AM RESIN REMOVER Telemedicine [facility] [address] [place] [id number] Rand Smyth MD [address] [place] [id number] documented as of this encounter Visit Diagnoses Not on filedocumented in this encounter Additional Health Concerns Infection Onset Date Last Indicated Resolved Time COVID19 03/13/2020 03/13/2020 04/03/2020 3:17 AM RESIN REMOVER R/O COVID19 04/04/2021 04/04/2021 04/05/2021 8:29 PM RESIN REMOVER COVID19 04/04/2021 04/04/2021 04/24/2021 3:17 AM RESIN REMOVER documented as of this encounter Care Teams Fleet Maintenance Foreman Relationship Specialty Start Date End Date Rand Smyth MD [address] [place] [address] PCP - General Internal Medicine/Pediatrics 05/31/22 documented as of this encounter
--- OUTSIDE RECORDS SUMMARY | 2024-06-22 06:04 | XMS_ITS | Encounter Summary ---
Author Organization [employer] Address [address] [place] [address] Care Team Providers Care Sifting Operator Name Role Phone Rand Smyth MD Primary Care Provider + [phone] Encounter Details Date Type Department Care Team [...] st Contact Info) Description 06/23/2024 9:00 AM JOURNEYMAN GLAZIER [place]medicine [facility] [place] [address] [place] [address] Rand Smyth MD [address] [place] [address] documented as of this encounter Visit Diagnoses Not on filedocumented in this encounter Additional Health Concerns Infection Onset Date Last Indicated Resolved Time COVID19 03/13/2020 03/13/2020 04/03/2020 3:17 AM JOURNEYMAN GLAZIER R/O COVID19 04/04/2021 04/04/2021 04/05/2021 8:29 PM JOURNEYMAN GLAZIER COVID19 04/04/2021 04/04/2021 04/24/2021 3:17 AM JOURNEYMAN GLAZIER documented as of this encounter Care Teams Sifting Operator Relationship Specialty Start Date End Date Rand Smyth MD [address] [place] [address] PCP - General Internal Medicine/Pediatrics 05/31/22 documented as of this encounter
--- OUTSIDE RECORDS SUMMARY | 2024-06-22 06:04 | XMS_ITS | Encounter Summary ---
Author Organization [employer] Address [address] [place] [address] Care Team Providers Care Plating Tank Operator Apprentice Name Role Phone Rand Smyth MD Primary Care Provider [phone] Encounter Details Date Type Department Care Team (Late st Contact Info) Description 05/21/2016 Consent for Procedure/Treatme nt [facility] Department INFORMED CONSENT RECORD Social History [...] st Contact Info) Description 06/23/2024 9:00 AM GEOTHERMAL POWERPLANT MECHANIC Telemedicine [facility] [address] [place] [address] Rand Smyth MD [address] [place] [address] documented as of this encounter Visit Diagnoses Not on filedocumented in this encounter Additional Health Concerns Infection Onset Date Last Indicated Resolved Time COVID19 03/13/2020 03/13/2020 04/03/2020 3:17 AM GEOTHERMAL POWERPLANT MECHANIC R/O COVID19 04/04/2021 04/04/2021 04/05/2021 8:29 PM GEOTHERMAL POWERPLANT MECHANIC COVID19 04/04/2021 04/04/2021 04/24/2021 3:17 AM GEOTHERMAL POWERPLANT MECHANIC documented as of this encounter Care Teams Plating Tank Operator Apprentice Relationship Specialty Start Date End Date Rand Smyth MD [address] [place] [address] PCP - General Internal Medicine/Pediatrics 05/31/22 documented as of this encounter
--- OUTSIDE RECORDS SUMMARY | 2024-06-22 06:04 | XMS_ITS | Encounter Summary ---
Author Organization [employer] Address [address] [place] [address] Care Team Providers Care A P Manager Name Role Phone Rand Smyth MD Primary Care Provider [phone] Encounter Details Date Type Department Care Team (Late st Contact Info) Description 02/07/2017 Consent for Procedure/Treatme nt [facility] Department INFORMED CONSENT RECORD Social History Tobacco [...] st Contact Info) Description 06/23/2024 9:00 AM CLINICAL RESEARCH SCIENTIST Telemedicine [facility] [address] [place] [address] Rand Smyth MD [address] [place] [address] documented as of this encounter Visit Diagnoses Not on filedocumented in this encounter Additional Health Concerns Infection Onset Date Last Indicated Resolved Time COVID19 03/13/2020 03/13/2020 04/03/2020 3:17 AM CLINICAL RESEARCH SCIENTIST R/O COVID19 04/04/2021 04/04/2021 04/05/2021 8:29 PM CLINICAL RESEARCH SCIENTIST COVID19 04/04/2021 04/04/2021 04/24/2021 3:17 AM CLINICAL RESEARCH SCIENTIST documented as of this encounter Care Teams A P Manager Relationship Specialty Start Date End Date Rand Smyth MD [address] [place] [address] PCP - General Internal Medicine/Pediatrics 05/31/22 documented as of this encounter
--- OUTSIDE RECORDS SUMMARY | 2024-06-22 06:04 | XMS_ITS | Encounter Summary ---
Author Organization [employer] Address [address] [place] [address] Care Team Providers Care Activities Therapist Name Role Phone Rand Smyth MD Primary Care Provider + [phone] Encounter Details Date Type Department Care Team [...] st Contact Info) Description 06/23/2024 9:00 AM CNA LTC Telemedicine [facility] [address] [place] [address] Rand Smyth MD [address] [place] [address] documented as of this encounter Visit Diagnoses Not on filedocumented in this encounter Additional Health Concerns Infection Onset Date Last Indicated Resolved Time COVID19 03/13/2020 03/13/2020 04/03/2020 3:17 AM CNA LTC R/O COVID19 04/04/2021 04/04/2021 04/05/2021 8:29 PM CNA LTC COVID19 04/04/2021 04/04/2021 04/24/2021 3:17 AM CNA LTC documented as of this encounter Care Teams Activities Therapist Relationship Specialty Start Date End Date Rand Smyth MD [address] [place] [address] PCP - General Internal Medicine/Pediatrics 05/31/22 documented as of this encounter
--- OUTSIDE RECORDS SUMMARY | 2024-06-22 06:04 | XMS_ITS | Encounter Summary ---
Author Organization [employer] Address [address] [place] [address] Care Team Providers Care Clinic Nurse Name Role Phone Rand Smyth MD Primary Care Provider + [phone] Encounter Details Date Type Department Care Team (Late st Contact Info) Description 06/30/[address] [facility] Radiology [address] [place] [address] [id number] Radiology, Provider MRI SAFETY SHEET AND COMOPATIBILITY [...] st Contact Info) Description 06/23/2024 9:00 AM HOG COUNTER Telemedicine [facility] [address] [place] [address] Rand Smyth MD [address] [place] [address] documented as of this encounter Visit Diagnoses Not on filedocumented in this encounter Additional Health Concerns Infection Onset Date Last Indicated Resolved Time COVID19 03/13/2020 03/13/2020 04/03/2020 3:17 AM HOG COUNTER R/O COVID19 04/04/2021 04/04/2021 04/05/2021 8:29 PM HOG COUNTER COVID19 04/04/2021 04/04/2021 04/24/2021 3:17 AM HOG COUNTER documented as of this encounter Care Teams Clinic Nurse Relationship Specialty Start Date End Date Rand Smyth MD [address] [place] [address] PCP - General Internal Medicine/Pediatrics 05/31/22 documented as of this encounter
--- OUTSIDE RECORDS SUMMARY | 2024-06-22 06:04 | XMS_ITS | Encounter Summary ---
Author Organization [employer] Address [address] [place] [address] Care Team Providers Care Founding Partner Name Role Phone Rand Smyth MD Primary Care Provider [phone] Encounter Details Date Type Department Care Team (Late st Contact Info) Description 04/12/2016 Consent for Procedure/Treatme nt [facility] Department INFORMED CONSENT RECORD Social History [...] st Contact Info) Description 06/23/2024 9:00 AM OIL BURNER TECHNICIAN Telemedicine [facility] [address] [place] [address] Rand Smyth MD [address] [place] [address] documented as of this encounter Visit Diagnoses Not on filedocumented in this encounter Additional Health Concerns Infection Onset Date Last Indicated Resolved Time COVID19 03/13/2020 03/13/2020 04/03/2020 3:17 AM OIL BURNER TECHNICIAN R/O COVID19 04/04/2021 04/04/2021 04/05/2021 8:29 PM OIL BURNER TECHNICIAN COVID19 04/04/2021 04/04/2021 04/24/2021 3:17 AM OIL BURNER TECHNICIAN documented as of this encounter Care Teams Founding Partner Relationship Specialty Start Date End Date Rand Smyth MD [address] [place] [address] PCP - General Internal Medicine/Pediatrics 05/31/22 documented as of this encounter
--- OUTSIDE RECORDS SUMMARY | 2024-06-22 06:04 | XMS_ITS | Encounter Summary ---
Author Organization [employer] Address [address] [place] [address] Care Team Providers Care Care Professionals Name Role Phone Rand Smyth MD Primary Care Provider [phone] Encounter Details Date Type Department Care Team [...] st Contact Info) Description 06/23/2024 9:00 AM DOG CATCHER Telemedicine [facility] [address] [place] [address] Rand Smyth MD [address] [place] [address] documented as of this encounter Visit Diagnoses Not on filedocumented in this encounter Additional Health Concerns Infection Onset Date Last Indicated Resolved Time COVID19 03/13/2020 03/13/2020 04/03/2020 3:17 AM DOG CATCHER R/O COVID19 04/04/2021 04/04/2021 04/05/2021 8:29 PM DOG CATCHER COVID19 04/04/2021 04/04/2021 04/24/2021 3:17 AM DOG CATCHER documented as of this encounter Care Teams Care Professionals Relationship Specialty Start Date End Date Rand Smyth MD [address] [address] PCP - General Internal Medicine/Pediatrics 05/31/22 documented as of this encounter
--- OUTSIDE RECORDS SUMMARY | 2024-06-22 06:04 | XMS_ITS | Encounter Summary ---
Author Organization [facility] Address [address] [place] [address] Care Team Providers Care Oracle Agile Plm Consultant Name Role Phone Rand Smyth MD Primary Care Provider [phone] Encounter Details Date Type Department Care Team (Late st Contact Info) Description 11/03/2015 Correspondence [facility] at [address] [address] Nico Portillo MD [address] [place] [phone] PHYSICIAN REPORT NEOPLASTIC DISEASE Social History Tobacco [...] st Contact Info) Description 06/23/2024 9:00 AM UNIX DEVELOPER Telemedicine [facility] [address] [place], [place] [id number] Rand Smyth MD [address] [place] [address] documented as of this encounter Visit Diagnoses Not on filedocumented in this encounter Additional Health Concerns Infection Onset Date Last Indicated Resolved Time COVID19 03/13/2020 03/13/2020 04/03/2020 3:17 AM UNIX DEVELOPER R/O COVID19 04/04/2021 04/04/2021 04/05/2021 8:29 PM UNIX DEVELOPER COVID19 04/04/2021 04/04/2021 04/24/2021 3:17 AM UNIX DEVELOPER documented as of this encounter Care Teams [employer] Consultant Relationship Specialty Start Date End Date Rand Smyth MD [address] [place] [address] PCP - General Internal Medicine/Pediatrics 05/31/22 documented as of this encounter
--- OUTSIDE RECORDS SUMMARY | 2024-06-22 06:04 | XMS_ITS | Clinical Summary ---
Author Organization [facility] Address [address] [place] [address] Care Team Providers Care Jacquard Twine Polisher Operator Name Role Phone Josh Manzanares MD Primary Care Provider [phone] Allergies Active Allergy Reactions Criticality Noted Date [...] (06/04/2024): Added automatically from request for surgery [id number] Breast hematoma 10/15/2016 Overview (06/04/2024): Added automatically from request for surgery [id number] H/O bilateral mastectomy 04/05/2016 S/P hysterectomy 12/27/2015 Overview (06/04/2024): No screening Pap tests per ASCCP guidelines. 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 Subclinical hypothyroidism 06/29/2015 Encounters Date Type Department Care Team Description 06/18/2024 Orders Only [facility] [address] [place] [address] Leann Peres, MEDICAL STAFF MANAGER, BAFFLE INSTALLER <No scans attached> 06/07/2024 12:33 PM GYMNASTIC COACH - 06/07/2024 11:59 PM GYMNASTIC COACH Hospital Encounter [facility] [address] [place] [address] Lab, [place] Rectal itching 06/07/2024 Travel 06/04/2024 3:00 PM GYMNASTIC COACH Office Visit [facility] [address] [place] [phone] Leann Peres APRN, BAFFLE INSTALLER Infection 06/04/2024 Travel 05/25/2024 11:29 AM GYMNASTIC COACH - 05/25/2024 2:43 PM GYMNASTIC COACH Emergency [facility] [address] [place] [address] Shahzad Mahan PA Norovirus (Primary Dx) Discharge [...] on file Legal Sex Female 7:57 AM GYMNASTIC COACH Gender Identity Not on file Sexual Orientation Not on file Travel History Travel Start Travel End [place] 05/20/2024 05/24/2024 Obstetrics History Last Filed Vital Signs Vital Sign Reading Time Taken Comments Blood Pressure 146/86 06/04/2024 3:41 PM GYMNASTIC COACH Pulse 81 06/04/2024 3:41 PM GYMNASTIC COACH Temperature 37 C (98.6 F) 06/04/2024 3:41 PM GYMNASTIC COACH Respiratory Rate 16 05/25/2024 2:39 PM GYMNASTIC COACH Oxygen Saturation 95% 06/04/2024 3:41 PM GYMNASTIC COACH Inhaled Oxygen Concentration - - Weight 68 kg (150 lb) 05/25/2024 11:46 AM GYMNASTIC COACH Height 160 cm (5' 3) 05/25/2024 11:46 AM GYMNASTIC COACH Body Mass Index 26.57 05/25/2024 11:46 AM GYMNASTIC COACH Plan of Treatment Upcoming Encounters Date Type Department Care Team (Late st Contact Info) Description 08/20/2024 9:30 AM CDT Office Visit [facility] [address] [place] [phone] Running Merle Pratt MD [address] [place], [place] [address] Health Maintenance Due Date Last Done Comments [...] RESULT (REFLEX ONLY) Timed 06/06/2024 11:45 PM GYMNASTIC COACH Rectal itching OVA + PARASITE EXAM Today 06/06/2024 1 1:45 PM GYMNASTIC COACH Rectal itching RESULT (REFLEX ONLY) Timed 06/05/2024 9:15 AM GYMNASTIC COACH Rectal itching OVA + PARASITE EXAM Today 06/05/2024 9 :15 AM GYMNASTIC COACH Rectal itching RESULT (REFLEX ONLY) Timed 06/04/2024 8:30 PM GYMNASTIC COACH Rectal itching OVA + PARASITE EXAM Today 06/04/2024 8 :30 PM GYMNASTIC COACH Rectal itching STOOL PCR CUY STAT 05/25/2024 12:44 PM GYMNASTIC COACH EXTRA TUBE GOLD/SST Today 05/25/2024 1 2:33 PM GYMNASTIC COACH EXTRA TUBE BLUE Today 05/25/2024 12:33 PM GYMNASTIC COACH LIPASE STAT 05/25/2024 12:33 PM GYMNASTIC COACH CBC WITH AUTO DIFFERENTIAL STAT 05/25/2024 12:33 PM GYMNASTIC COACH MAGNESIUM STAT 05/25/2024 12:33 PM GYMNASTIC COACH COMP METABOLIC PANEL STAT 05/25/2024 12:33 PM GYMNASTIC COACH CBC WITH AUTO DIFFERENTIAL STAT 05/25/2024 12:33 PM GYMNASTIC COACH COVID PANEL (COVID,FLU,RSV) CUY STAT 05/25/2024 11:37 AM GYMNASTIC COACH from Last 3 Months Results * RESULT (REFLEX ONLY) (06/06/2024 11:45 PM GYMNASTIC COACH) Only the most recent of3 resultswithin the time period is included. Result 1 Comment 06/18/2024 2:[address] [facility]IC TESTING (CET) Comment: No ova, cysts, or parasites seen. One negative specimen does not rule out the possibility of a parasitic infection. Stool STOOL SPECIMEN / Unknown Non-Blood / Unknown 06/06/2024 11:45 PM GYMNASTIC COACH 06/07/2024 1:56 PM GYMNASTIC COACH Narrative FOR ESOTERIC TESTING (CET) - 06/18/2024 2:08 PM GYMNASTIC COACH Performed at: [address] [place] [address] [address], [place], [place] [id number] Juice Standardizer: Maty Whitt MD, Phone: [phone] Leann L Peres MEDICAL STAFF MANAGER, BAFFLE INSTALLER LABORATORY Final Result Performing Organization Address City/[facility]/ZIP Co de Phone Number [facility]OTERIC TESTING (CET) [address] [place] [address], * OVA + PARASITE EXAM (06/06/2024 11:45 PM GYMNASTIC COACH) Only the most recent of3 resultswithin the time period is included. Ova + Parasite Exam Final report 06/18/2024 2:[address] [facility]IC TEST[facility] (CET) Comment: These results were obtained using wet preparation(s) and trichrome stained smear. This test does not include testing for Cryptosporidium parvum, Cyclospora, or Microsporidia. Stool STOOL SPECIMEN / Unknown Non-Blood / Unknown 06/06/2024 11:45 PM GYMNASTIC COACH 06/07/2024 1:56 PM GYMNASTIC COACH N[address]ative [facility]IC TESTING (CET) - 06/18/2024 2:08 PM GYMNASTIC COACH Performed at: [address] [place] [address] [address], [place], [place] [id number] Juice Standardizer: Maty Whitt MD, Phone: [phone] Leann Peres APRN, CNP SEND OUTS Final Result Performing Organization Address City/[facility] Co de Phone Number [facility]IC TEST[facility] (CET) [address] [place] [address], * (ABNORMAL) STOOL PCR CUY (05/25/2024 12:44 PM GYMNASTIC COACH) Pathologist [facility] [place] Campylobacter NOT Detected NOT Detected 05/25/2024 2:13 PM GYMNASTIC COACH [facility] Clostridium difficile toxin A/B NOT Detected NOT Detected 05/25/2024 2:13 PM GYMNASTIC COACH [facility] Plesiomonas shigelloides NOT Detected NOT Detected 05/25/2024 2:13 PM GYMNASTIC COACH [facility] Salmonella NOT Detected NOT Detected 05/25/2024 2:13 PM GYMNASTIC COACH [facility] Vibrio species NOT Detected NOT Detected 05/25/2024 2:13 PM GYMNASTIC COACH [facility] Vibrio cholerae NOT Detected NOT Detected 05/25/2024 2:13 PM GYMNASTIC COACH [facility] Yersinia enterocolitica NOT Detected NOT Detected 05/25/2024 2:13 PM GYMNASTIC COACH [facility] E. coli enteroaggregative (EAEC) NOT Detected NOT Detected 05/25/2024 2:13 PM GYMNASTIC COACH [facility] E. coli enteropathogenic (EPEC) NOT Detected NOT Detected 05/25/2024 2:13 PM GYMNASTIC COACH [facility] E. coli enterotoxigenic (ETEC) lt/st NOT Detected NOT Detected 05/25/2024 2:13 PM GYMNASTIC COACH [facility] Shiga-like toxin-producing E. coli (STEC) stx1/stx2 NOT Detected NOT Detected 05/25/2024 2:13 PM GYMNASTIC COACH [facility] E. coli O157 05/25/2024 2:13 PM GYMNASTIC COACH [facility] Comment:N/A Shigella/Enteroinvas carey E. coli (EIEC) NOT Detected NOT Detected 05/25/2024 2:13 PM GYMNASTIC COACH [facility] Cryptosporidium NOT Detected NOT Detected 05/25/2024 2:13 PM GYMNASTIC COACH [facility] Cyclospora cayetanensis NOT Detected NOT Detected 05/25/2024 2:13 PM GYMNASTIC COACH [facility] Entamoeba histolytica NOT Detected NOT Detected 05/25/2024 2:13 PM GYMNASTIC COACH [facility] Giardia lamblia NOT Detected NOT Detected 05/25/2024 2:13 PM GYMNASTIC COACH [facility] Adenovirus F 40/41 NOT Detected NOT Detected 05/25/2024 2:13 PM GYMNASTIC COACH [facility] Astrovirus NOT Detected NOT Detected 05/25/2024 2:13 PM GYMNASTIC COACH [facility] Norovirus GI/GII Detected(A) NOT Detected 05/25/2024 2:13 PM [facility] Comment:Apr 2023 [employer] has identified a potential signal of increased false positive Norovirus results when using the BIOFIRE FILMAR[employer] Gastrointestinal (GI) Panel. If a positive Norovirus result is inconsistent with clinical presentation, please notify the laboratory DAVID if further confirmation testing is requested. Rotavirus A NOT Detected NOT Detected 05/25/2024 2:13 PM GYMNASTIC COACH [facility] Sapovirus NOT Detected NOT Detected 05/25/2024 2:13 PM GYMNASTIC COACH [facility] Stool STOOL SPECIMEN / Unknown Non-Blood / Unknown 05/25/2024 12:44 PM GYMNASTIC COACH 05/25/2024 12:45 PM GYMNASTIC COACH Shahzad CORDERO MICROBIOLOGY Final Result [facility] [address] [place] [address], * (ABNORMAL) CBC WITH AUTO DIFFERENTIAL (05/25/2024 12:33 PM GYMNASTIC COACH) WHITE BLOOD COUNT 10.4 4.0 - 11.0 thou/cu mm 05/25/2024 12:46 PM [facility] RED BLOOD COUNT 4.26 3.87 - 5.03 mil/cu mm 05/25/2024 12:46 PM [facility] HEMOGLOBIN 13.2 12.2 - 15.5 g/dL 05/25/2024 12:46 PM [facility] HEMATOCRIT 38.6 34.9 - 44.5 % 05/25/2024 12:46 PM [facility] MCV 91 82 - 96 fL 05/25/2024 12:46 PM [facility] MCH 31.0 28.0 - 33.0 pg 05/25/2024 12:46 PM [facility] MCHC 34.2 32.0 - 35.9 g/dL 05/25/2024 12:46 PM [facility] RDW 13.0 10.0 - 15.0 % 05/25/2024 12:46 PM [facility] PLATELET COUNT 211 150 - 450 thou/cu mm 05/25/2024 12:46 PM [facility] NRBC 0.0 % 05/25/2024 12:46 PM [facility] % NEUT 91.6(H) % 05/25/2024 12:46 PM [facility] % LYMPH 4.6(L) % 05/25/2024 12:46 PM GYMNASTIC COACH [facility] % MONO 2.7 % 05/25/2024 12:46 PM GYMNASTIC COACH [facility] % EOS 0.6 % 05/25/2024 12:46 PM GYMNASTIC COACH [facility] % BASO 0.2 % 05/25/2024 12:46 PM GYMNASTIC COACH [facility] ABSOLUTE NEUTROPHILS 9.6(H) 1.7 - 9.5 thou/cu mm 05/25/2024 12:46 PM GYMNASTIC COACH [facility] ABSOLUTE LYMPHOCYTES 0.5 0.3 - 4.4 thou/cu mm 05/25/2024 12:46 PM GYMNASTIC COACH [facility] ABSOLUTE MONOCYTES 0.3 0.1 - 1.4 thou/cu mm 05/25/2024 12:46 PM [facility] ABSOLUTE EOSINOPHILS 0.06 0.00 - 0.70 thou/cu mm 05/25/2024 12:46 PM GYMNASTIC COACH [facility] ABSOLUTE BASOPHILS 0.0 0.0 - 0.3 thou/cu mm 05/25/2024 12:46 PM [facility] % IMMATURE GRAN (METAS,MYELOS,AK OS) 0.3 % 05/25/2024 12:46 PM [facility] ABSOLUTE IMMATURE GRANULOCYTES(MET ,MYELOS,PROS) 0.0 <0.3 thou/cu mm 05/25/2024 12:46 PM [facility] MPV 11.0(H) 7.0 - 10.4 fL 05/25/2024 12:46 PM GYMNASTIC COACH [facility] Blood BLOOD SPECIMEN / Unknown Venipuncture / Unknown 05/25/2024 12:33 PM GYMNASTIC COACH 05/25/2024 12:40 PM GYMNASTIC COACH Shahzad CORDERO HEMATOLOGY Final Result [facility] [address] [place] [address], [place] [phone] * EXTRA TUBE GOLD/SST (05/25/2024 12:33 PM GYMNASTIC COACH) Blood BLOOD SPECIMEN / Unknown Venipuncture / Unknown 05/25/2024 12:33 PM GYMNASTIC COACH 05/25/2024 1:29 PM GYMNASTIC COACH Provider Referring LABORATORY Final Result Performing Organization Address City/[facility]/ZIP Co de Phone Number [facility] [address] [facility] [place] [address], * EXTRA TUBE BLUE (05/25/2024 12:33 PM GYMNASTIC COACH) Blood BLOOD SPECIMEN / Unknown IV Start / Unknown 05/25/2024 12:33 PM GYMNASTIC COACH 05/25/2024 1:15 PM GYMNASTIC COACH Provider Referring LABORATORY Final Result Performing Organization Address City/[facility]/ZIP Co de Phone Number [facility] [address] [facility] [place] [address], * MAGNESIUM (05/25/2024 12:33 PM GYMNASTIC COACH) MAGNESIUM 1.8 1.6 - 2.2 mg/dL 05/25/2024 12:58 PM GYMNASTIC COACH [facility] Blood BLOOD SPECIMEN / Unknown Venipuncture / Unknown 05/25/2024 12:33 PM GYMNASTIC COACH 05/25/2024 12:40 PM GYMNASTIC COACH Shahzad CORDERO CHEMISTRY Final Result Performing Organization Address City/[facility]/ZIP Co de Phone Number [facility] [address] [facility] [place] [address], * LIPASE (05/25/2024 12:33 PM GYMNASTIC COACH) LIPASE CUY 198.0 10.0 - 300.0 IU/L 05/25/2024 12:58 PM GYMNASTIC COACH [facility] Blood BLOOD SPECIMEN / Unknown Venipuncture / Unknown 05/25/2024 12:33 PM GYMNASTIC COACH 05/25/2024 12:40 PM GYMNASTIC COACH Shahzad CORDERO CHEMISTRY Final Result [facility] [address] [facility] [address], [place] [phone] * (ABNORMAL) COMP METABOLIC PANEL (05/25/2024 12:33 PM GYMNASTIC COACH) SODIUM 132(L) 137 - 145 mmol/L 05/25/2024 12:58 PM [facility] POTASSIUM 4.1 3.5 - 5.0 mmol/L 05/25/2024 12:58 PM [facility] CHLORIDE 100 98 - 107 mmol/L 05/25/2024 12:58 PM [facility] CO2,TOTAL 20(L) 22 - 30 mmol/L 05/25/2024 12:58 PM [facility] GLUCOSE 115(H) >65 - 100 mg/dL 05/25/2024 12:58 PM [facility] CALCIUM 9.7 8.4 - 10.2 mg/dL 05/25/2024 12:58 PM [facility] BUN CUY 13 7 - 17 mg/dL 05/25/2024 12:58 PM [facility] CREATININE 0.79 0.52 - 1.04 mg/dL 05/25/2024 12:58 PM [facility] ALBUMIN 4.9 3.6 - 5.0 g/dL 05/25/2024 12:58 PM [facility] PROTEIN,TOTAL 8.4(H) 6.3 - 8.2 g/dL 05/25/2024 12:58 PM [facility] GLOBULIN 3.5 2.4 - 3.5 g/dL 05/25/2024 12:58 PM [facility] A/G RATIO 1.4 05/25/2024 12:58 PM [facility] ALK PHOSPHATASE CUY 100 37 - 126 IU/L 05/25/2024 12:58 PM [facility] AST (SGOT) CUY 41(H) 14 - 36 IU/L 05/25/2024 12:58 PM [facility] ANION GAP CUY 16.1 5 - 18 mmol/L 05/25/2024 12:58 PM [facility] BUN/CREAT RATIO CUY 16 05/25/2024 12:58 PM [facility] BILIRUBIN,TOTAL 1.0 0.2 - 1.3 mg/dL 05/25/2024 12:58 PM [facility] ALTv (SGPT) 48(H) <35 U/L 05/25/2024 12:58 PM [facility] eGFR 89(L) >90 mL/min/1.7 3m2 05/25/2024 12:58 PM [facility] Comment:As of 2021, eG FR is calculated by the CKD-EPI creatinine equation without race adjustment. eGFR can be influenced by muscle mass, exercise, and diet. The reported eGFR is an estimation only and is only applicable if the renal function is stable. Blood BLOOD SPECIMEN / Unknown Venipuncture / Unknown 05/25/2024 12:33 PM GYMNASTIC COACH 05/25/2024 12:40 PM GYMNASTIC COACH Shahzad CORDERO CHEMISTRY Final Result [facility] [address] [place] [address], * COVID PANEL (COVID,FLU,RSV) CU (05/25/2024 11:37 AM GYMNASTIC COACH) SARS-CoV-2 Negative Negative 05/25/2024 12:23 PM [facility] INFLUENZA A PCR Negative Negative 12:23 PM [facility] INFLUENZA B PCR Negative Negative 12:23 PM [facility] RESPIRATORY SYNCYTIAL VIRUS PCR Negative Negative 05/25/2024 12:23 PM [facility] Swab SPECIMEN FROM NASAL FOSSAE / Unknown Non-Blood / Unknown 05/25/2024 11:37 AM GYMNASTIC COACH 05/25/2024 11:38 AM GYMNASTIC COACH Narrative [facility] - 05/25/2024 12:23 PM GYMNASTIC COACH Negative results do not preclude SARS-CoV-2, influenza or RSV infection and should not be used as the sole basis for treatment or other patient management decisions. Shahzad CORDERO MICROBIOLOGY Final Result [facility] [address] [facility] [place] [address], [place] [phone] from Last 3 Months Insurance [facility] Care Teams Jacquard Twine Polisher Operator Relationship Specialty Start Date End Date Josh Manzanares MD [address] [place] [address] PCP - General 06/10/23
--- OUTSIDE RECORDS SUMMARY | 2024-06-22 06:04 | XMS_ITS | Encounter Summary ---
Author Organization [employer] [facility] Address [address] [place] [address] Care Team Providers Care Gravity Prospecting Supervisor Name Role Phone Rand Smyth MD Primary Care Provider + [phone] Encounter Details Date Type Department Care Team (Late st Contact Info) Description 11/11/2013 Correspondence [facility] [address] [place] [phone] Radiology, Provider MRI SAFETY SHEET AND COMPATIBILITY [...] st Contact Info) Description 06/23/2024 9:00 AM ASSISTANT WOMENS VOLLEYBALL COACH Telemedicine [facility] [address] [place] [address] Rand Smyth MD [address] [place] [address] documented as of this encounter Visit Diagnoses Not on filedocumented in this encounter Additional Health Concerns Infection Onset Date Last Indicated Resolved Time COVID19 03/13/2020 03/13/2020 04/03/2020 3:17 AM ASSISTANT WOMENS VOLLEYBALL COACH R/O COVID19 04/04/2021 04/04/2021 04/05/2021 8:29 PM ASSISTANT WOMENS VOLLEYBALL COACH COVID19 04/04/2021 04/04/2021 04/24/2021 3:17 AM ASSISTANT WOMENS VOLLEYBALL COACH documented as of this encounter Care Teams Gravity Prospecting Supervisor Relationship Specialty Start Date End Date Rand Smyth MD [address] [place] [address] PCP - General Internal Medicine/Pediatrics 05/31/22 documented as of this encounter
--- OUTSIDE RECORDS SUMMARY | 2024-06-22 06:04 | XMS_ITS | Encounter Summary ---
Author Organization [employer] Address [address] [place] [address] Care Team Providers Care Pumper Gager Apprentice Name Role Phone Rand Smyth MD Primary Care Provider + [phone] Encounter Details Date Type Department Care Team [...] st Contact Info) Description 06/23/2024 9:00 AM ALUMINUM POOL INSTALLER Telemedicine [facility] [address] [place] [address] Rand Smyth MD [address] [place] [address] documented as of this encounter Visit Diagnoses Not on filedocumented in this encounter Additional Health Concerns Infection Onset Date Last Indicated Resolved Time COVID19 03/13/2020 03/13/2020 04/03/2020 3:17 AM ALUMINUM POOL INSTALLER R/O COVID19 04/04/2021 04/04/2021 04/05/2021 8:29 PM ALUMINUM POOL INSTALLER COVID19 04/04/2021 04/04/2021 04/24/2021 3:17 AM ALUMINUM POOL INSTALLER documented as of this encounter Care Teams Pumper Gager Apprentice Relationship Specialty Start Date End Date Rand Smyth MD [address] [place] [address] PCP - General Internal Medicine/Pediatrics 05/31/22 documented as of this encounter
--- OUTSIDE RECORDS SUMMARY | 2024-06-22 06:04 | XMS_ITS | Encounter Summary ---
Author Organization [employer] Address [address] [place] [address] Care Team Providers Care Meat Dresser Name Role Phone Rand Smyth MD Primary Care Provider [phone] Encounter Details Date Type Department Care Team (Late Contact Info) Description 05/10/[address] [place] [address] Josh Manzanares MD [address] [facility] [place] [address] INTERIM ORDER REPORT Social History Tobacco Use [...] (Late Contact Info) Description 06/23/2024 9:00 AM MICROPALEONTOLOGIST Telemedicine [facility] [address] [place] [address] Rand Smyth MD [address] [place] [address] documented as of this encounter Visit Diagnoses Not on filedocumented in this encounter Additional Health Concerns Infection Onset Date Last Indicated Resolved Time COVID19 03/13/2020 03/13/2020 04/03/2020 3:17 AM MICROPALEONTOLOGIST R/O COVID19 04/04/2021 04/04/2021 04/05/2021 8:29 PM MICROPALEONTOLOGIST COVID19 04/04/2021 04/04/2021 04/24/2021 3:17 AM MICROPALEONTOLOGIST documented as of this encounter Care Teams Meat Dresser Relationship Specialty Start Date End Date Rand Smyth MD [address] [place] [address] PCP - General Internal Medicine/Pediatrics 05/31/22 documented as of this encounter
--- NOTE | 2024-06-22 06:05 | ED.GENADULT ---
HPI - General Adult General Date Seen: 06/22/24 Chief complaint: Abdominal Pain Stated complaint: Diverticulitis flareup, sinus infection Time Seen by Provider: 06/22/24 05:37 Source: patient, RN notes reviewed and old records reviewed Mode of arrival: ambulatory Limitations: no limitations History of Present Illness HPI narrative: Patient is a 53-year-old female who presents here with 2 concerns problem 1. Is possible sinusitis she has had a cough with the very thick exudate, streaming from our upper nose area, causing her to cough. She has had this for approximately 2 and half to 3 weeks. She notices it worse at nighttime when she lays down improved when she sits up. No fevers but there is some facial discomfort associated with this, she has can not instr self that she has sinusitis. Problem 2. Is 1 of possible diverticulitis, approximately 4 weeks ago she was diagnosed with norovirus, and has had persistent left lower quadrant pain since then. The acute nausea vomiting is improved and she is able to tolerate food, she has had no problems with constipation, no fevers no chills. But thinks that she has had a resumption of her diverticulitis, she does have a history of a previous operation with removal approximately 12 in of her bowel secondary to perforation that occurred with the previous surgery. She has had 1 episode before diverticulitis. Denies any significant fevers chills dysuria frequency of urine. Associated with this. No history of chest pain shortness of breath associated with this no leg swelling. She has had a recent trip down to [place]. She has central desensitization syndrome, long COVID and is recently undergoing a trial of high-dose vitamins and fluids, and doing quite well with this. She has come off her sulfasalazine. Related Data Home Medications ?Medication ?Instructions ?Recorded ?Confirmed duloxetine 20 mg capsule,delayed 60 mg PO DAILY 08/14/22 06/20/23 release letrozole 2.5 mg tablet 2.5 mg PO DAILY 08/14/22 06/20/23 levothyroxine 100 mcg tablet 112 mcg PO DAILY 08/14/22 06/20/23 sulfasalazine 500 mg tablet 1,000 mg PO BID 08/14/22 06/20/23 Previous Rx's ?Medication ?Instructions ?Recorded prednisone 50 mg tablet 50 mg PO DAILY #5 tabs 11/04/22 Allergies Allergy/AdvReac Type Severity Reaction Status Date / Time vancomycin (From Vancocin) Allergy Verified 06/20/23 13:08 Review of Systems Status of ROS: Reports: 10 or more systems reviewed and unremarkable except as noted in History and below [facility] Social History Smoking Status: Never smoker Do you use any of these nicotine containing products: None How often do you have a drink containing alcohol: monthly or less How many standard drinks containing alcohol do you have on a typical day: 1 or 2 AUDIT-C Alcohol total score: 1 Non-prescribed substance use: denies use service: No Exam Narrative: Exam Narrative: On examination in room 1 she is in no apparent distress she is pleasant and alert her pupils equal round reactive tonight there is no scleral icterus redness her TMs are normal her oropharynx shows a thick posterior exudate consistent with a sinusitis, there is some mild pressure over her maxillary regions on palpation she does transilluminate however normally. Oropharynx is otherwise normal, her TMs are normal her neck is supple there is no lymphadenopathy anterior posterior chains in no meningismus, chest is good air entry bilaterally no wheezing crackles noted her heart sounds are normal. Abdomen shows mild tenderness the left lower quadrant, but when I distract her slightly she does not have as much there is clearly no peritoneal signs, and she has normal bowel sounds throughout. She is able to walk for me, no edema, no rashes. Const: Vital Signs, click to edit/add: Vital Signs - 24 hr 06/22/24 05:29 Temperature 97.9 F Pulse Rate [Left] 86 Respiratory Rate 20 Blood Pressure [Ri ght Upper Arm] 134/86 Pulse Oximetry 97 Oxygen Delivery Me thod Room Air Documenting provider has reviewed patient's vital signs: yes Course Course ED Course: I do think she has sinusitis based on my examination, the treatment could include Augmentin, for 14 days which should cover her nicely for her possible diverticulitis I do not think we have to image her poop presently or do laboratory tests she is nontoxic, no fevers, and clearly no evidence of peritonitis. After discussion with her she is in agreement, she would like to use the antibiotics. Augmentin 875 mg p.o. b.i.d. for 14 days via instymeds Vital Signs Vital signs: Initial Vital Signs Temperature 97.9 F 06/22/24 05:29 Temperature Source Temporal Artery Scan 06/22/24 05:29 Pulse Rate 86 06/22/24 05:29 Respiratory Rate 20 06/22/24 05:29 Blood Pressure 134/86 06/22/24 05:29 Blood Pressure Mean 102 06/22/24 05:29 Pulse Oximetry 97 06/22/24 05:29 Oxygen Delivery Method Room Air 06/22/24 05:29 Vital Signs Temperature 97.9 F 06/22/24 05:29 Pulse Rate 86 06/22/24 05:29 Respiratory Rate 20 06/22/24 05:29 Blood Pressure 134/86 06/22/24 05:29 Pulse Oximetry 97 06/22/24 05:29 Oxygen Delivery Method Room Air 06/22/24 05:29 Temperature 97.9 F 06/22/24 05:29 Pulse Rate 86 06/22/24 05:29 Respiratory Rate 20 06/22/24 05:29 Blood Pressure 134/86 06/22/24 05:29 Pulse Oximetry 97 06/22/24 05:29 Oxygen Delivery Method Room Air 06/22/24 05:29 Medical Decision Making MDM Narrative Medical decision making narrative: During the evaluation of this patient I considered multiple differential diagnosis including life-threatening differentials which are appendicitis, aortic aneurysm, mesenteric ischemia, bowel perforation, ectopic , volvulus and bowel obstruction, other differential diagnosis include but are not limited to inflammatory bowel disease, cholecystitis, pancreatitis, hepatitis, gastritis, GERD, diverticulitis, peptic ulcer disease, pyelonephritis/UTI, renal colic/stone, pelvic inflammatory disease, cervicitis, endometritis, intrauterine , dysfunctional uterine bleeding, ovarian cyst/torsion, spontaneous as well as other etiologies Medical Records Medical records reviewed: Yes I reviewed the patient's medical records Discharge Plan Discharge Clinical Impression: Sinusitis, Abdominal pain Patient Disposition: Home, Self-Care Condition: Stable Instructions: Sinusitis (ED), Abdominal Pain (ED), Warm Compress or Soak (ED) Additional Instructions: Home, rest, use the Augmentin, Tylenol and or ibuprofen for your abdominal pain, the antibiotic also works for diverticulitis, please use lot a yogurt, and other probiotics, as you do not want to end up with C diff. increasing abdominal pain nausea vomiting or fevers, please come back and get re seen. Activity Level: Light activity Prescriptions: No Action prednisone 50 mg tablet 50 mg PO DAILY Qty: 5 0RF duloxetine 20 mg capsule,delayed release(DR/EC) 60 mg PO DAILY levothyroxine 100 mcg tablet 112 mcg PO DAILY letrozole 2.5 mg tablet 2.5 mg PO DAILY sulfasalazine 500 mg tablet 1,000 mg PO BID Follow Up/Referrals: Provider,Not a Local [Primary Care Provider] - Stand Alone Forms: [employer] Info Instructions
--- OUTSIDE RECORDS SUMMARY | 2024-06-22 06:05 | XMS_ITS | Encounter Summary ---
Author Organization [employer] Address [address] [place] [address] Care Team Providers Care Mat Sewer Name Role Phone Rand Smyth MD Primary Care Provider [phone] Encounter Details Date Type Department Care Team (Latest Contact Info) Description 02/04/2019 Consent for Procedure/Treatme nt [facility] [address] [place] [address]. [place] [address] Pedro Madrid MD [address] [place] [address] [phone] INFORMED CONSENT FOR SKIN BIOPSY OR EXCISION [...] st Contact Info) Description 06/23/2024 9:00 AM PILLOWCASE SEWER Telemedicine [facility] [address] [place] [address] Rand Smyth MD [address] [place] [address] documented as of this encounter Visit Diagnoses Not on filedocumented in this encounter Additional Health Concerns Infection Onset Date Last Indicated Resolved Time COVID19 03/13/2020 03/13/2020 04/03/2020 3:17 AM PILLOWCASE SEWER R/O COVID19 04/04/2021 04/04/2021 04/05/2021 8:29 PM PILLOWCASE SEWER COVID19 04/04/2021 04/04/2021 04/24/2021 3:17 AM PILLOWCASE SEWER documented as of this encounter Care Teams Mat Sewer Relationship Specialty Start Date End Date Rand Smyth MD [address] [place] [address] PCP - General Internal Medicine/Pediatrics 05/31/22 documented as of this encounter
--- OUTSIDE RECORDS SUMMARY | 2024-06-22 06:05 | XMS_ITS | Encounter Summary ---
Author Organization [employer] Address [address] [place] [address] Care Team Providers Care Wire Mesh Gate Assembler Name Role Phone Rand Smyth MD Primary Care Provider + [phone] Encounter Details Date Type Department Care Team (Latest Contact Info) Description 03/16/2018 Consent for Procedure/Treatme nt [facility] [address] [facility] [place] [address] Michell Caballero MD [address] [place], [place] [phone] INFORMED CONSENT FOR SKIN BIOPSY OR EXCISION [...] Contact Info) Description 06/23/2024 9:00 AM ASSISTANT PROFESSOR OF SOCIOLOGY Telemedicine [facility] [address] [place] [address] Rand Smyth MD [address] [place], [place] [phone] documented as of this encounter Visit Diagnoses Not on filedocumented in this encounter Additional Health Concerns Infection Onset Date Last Indicated Resolved Time COVID19 03/13/2020 03/13/2020 04/03/2020 3:17 AM ASSISTANT PROFESSOR OF SOCIOLOGY R/O COVID19 04/04/2021 04/04/2021 04/05/2021 8:29 PM ASSISTANT PROFESSOR OF SOCIOLOGY COVID19 04/04/2021 04/04/2021 04/24/2021 3:17 AM ASSISTANT PROFESSOR OF SOCIOLOGY documented as of this encounter Care Teams Wire Mesh Gate Assembler Relationship Specialty Start Date End Date Rand Smyth MD [address] [place] [address] PCP - General Internal Medicine/Pediatrics 05/31/22 documented as of this encounter
--- OUTSIDE RECORDS SUMMARY | 2024-06-22 06:05 | XMS_ITS | Encounter Summary ---
Author Organization [facility] Address [address] [place] [address] Care Team Providers Care Telemetry Registered Nurse Name Role Phone Rand Smyth MD Primary Care Provider [phone] Encounter Details Date Type Department Care Team (Late st Contact Info) Description 08/23/2015 Scanned History [facility] at [address] [address] Brigitte Trejo MS, [facility] [address] [place] [address] GENETIC COUNSELOR PATIENT FAMILY TREE Social History [...] st Contact Info) Description 06/23/2024 9:00 AM NURSE HEALTHCARE MANAGER Telemedicine [facility] [address] [place] [address] Rand Smyth MD [address] [place] [address] documented as of this encounter Visit Diagnoses Not on filedocumented in this encounter Additional Health Concerns Infection Onset Date Last Indicated Resolved Time COVID19 03/13/2020 03/13/2020 04/03/2020 3:17 AM NURSE HEALTHCARE MANAGER R/O COVID19 04/04/2021 04/04/2021 04/05/2021 8:29 PM NURSE HEALTHCARE MANAGER COVID19 04/04/2021 04/04/2021 04/24/2021 3:17 AM NURSE HEALTHCARE MANAGER documented as of this encounter Care Teams Telemetry Registered Nurse Relationship Specialty Start Date End Date Rand Smyth MD [address] [place] [address] PCP - General Internal Medicine/Pediatrics 05/31/22 documented as of this encounter
--- OUTSIDE RECORDS SUMMARY | 2024-06-22 06:05 | XMS_ITS | Clinical Summary ---
Author Organization [facility] Address [address] [place] [address] Care Team Providers Care Insurance Underwriting Assistant Name Role Phone Rand Smyth MD Primary Care Provider + [phone] Source Comments You are receiving this document as you are listed as the primary care provider,follow-up provider, or the patient has been referred to you for consultation.This is in compliance with the Medicare and[facility] Cent[facility]aid EHR Incentive Program,which states Providers who transition their patient to another setting of careor provider of care or refers their patient to another provider of care shouldprovide summary care record for each transition of care or referral. RABT Allergies Active Allergy Reactions Criticality Noted Date [...] (08/11/2017): Added automatically from request for surgery [id number] Ventral hernia without obstruction or gangrene 1 Left-sided chest wall pain 01/15/2017 H/O breast reconstruction 11/28/2016 Overview (11/28/2016): Added automatically from request for surgery [id number] Breast hematoma 10/15/2016 Overview (10/15/2016): Added automatically from request for surgery [id number] Rash of body 06/18/2016 H/O bilateral mastectomy [...] Noted Date Diagnosed Date Resolved Date CAREPLAN: [facility] Fur and Mask DISEASE MANAGEMENT 9 01/18/2019 Overview (01/18/2019): PT CARE COORDINATION - [facility] ASSISTED 02/19/2017 01/09/2018 Overview (05/20/2017): If you have any questions or concerns please contact: Your Care Team at [facility] Primary Care Provider: Josh Manzanares MD RN Coordinator: Amanda Simpson RN CareLine at [phone] or after hours and on weekends. Care Coordination (Community Resources, Specialists, Home Health Agency, Caregiver, Supply Vendor, Trust Evaluation Supervisor) Contact Name SANKET Obtained? Phone Number Role in Care Comments Lucy Harley RN (Michelle) N/A [phone] DCM Action Plan Donte's Chosen Goal: Brynn [...] 04/04/2017 Left shoulder pain 06/05/2016 7 CAREPLAN: [facility] DISEASE MANAGEMENT 6 10/09/2017 Bilateral hip pain 04/12/2014 5 Encounters Date Type Department Care Team Description 04/04/2024 4:35 PM TELEPHONE COLLECTOR E-Visit [facility] [address] [place] [address] Rand Smyth MD Chief Comp: Medication Questions 04/02/2024 Refill [facility] [address] [place] [address] Rand Smyth MD Refill (TIROSINT 112 MCG tablet) from Last 3 Months Immunizations Immunization Administration Dates Next Due Flu Vac (3+ yrs) 02/16/2014 Flu Vac Preserv Free (3+yrs) 03/22/2020, 03/03/2018,05/02/2017,2014 Influenza IIV4 (Quadrivalent ) 0.5mL (26396) 02/09/2017(Deferred: Patient Refused) MMR 03/04/2005 Moderna Monovalent [...] 160 cm (5' 3) 04/10/2023 9:48 AM TELEPHONE COLLECTOR Body Mass Index 27.53 04/10/2023 9:48 AM TELEPHONE COLLECTOR Plan of Treatment Upcoming Encounters Date Type Department Care Team (Late st Contact Info) Description 06/23/2024 9:00 AM TELEPHONE COLLECTOR Telemedicine [facility] [address] [place] [address] Rand Smyth MD [address] [place] [address] Health Maintenance Due Date Last Done Comments [...] this topic Medical Devices Implanted Type Area Truck Safety Inspector Device Identifier Shelf Expiration Date Model / Serial / Lot [id number] - [id number] Implanted:Qty : 1 on 01/11/2016 by Stacey [place] MD at [facility] BIOLOGIC Left: BREAST LifeCell Emerson 09/25/2017 [id number] / / [id number] Alloderm Select Implanted:Qty : 1 on 01/11/2016 by Stacey [place] MD at [facility] BIOLOGIC Right: BREAST LifeCell Emerson 09/25/2017 [id number] / / [id number] Spring Morales High Profile Implanted:Qty : 1 on 01/11/2016 by Stacey [place] MD at [facility] DEVICE Right: BREAST 10/03/2018 [id number] / [id number] / [id number] Mscf-365 - [id number] Implanted:Qty : 1 on 12/17/2016 at [facility] DEVICE 09/06/2021 SCF-365 / [id number] / Natrelle Inspira Implanted:Qty : 1 on 02/07/2017 by Eddi Delarosa MD at [facility] DEVICE Right: BREAST [employer]ergan Inc 06/01/2021 SCX 420 / [id number] / Description:NATRELLE INSPIRA COHESIVE BREAST IMPLANT 420CC Mesh Prolite 10x14 - [id number] Implanted:Qty : 1 on 02/07/2017 by Rigoberto Hylton MD at [facility] DEVICE Right: ABDOMEN Getinge Maquet Vascular System 08/22/2021 [id number] / / [id number] Natrelle Inspira Cohesive Breast Implant 420cc Implanted:Qty : 1 on 02/07/2017 by Rigoberto Hylton MD at [facility] DEVICE Left: BREAST SCX-420 / [id number] / Imp Mamm Xfull Smth 420cc - [id number] Implanted:Qty : 1 on 01/27/2018 by Eddi Delarosa MD at [facility] DEVICE Right: BREAST Allergan Inc 03/01/2022 SCX-420 / [id number] / Explanted Type Area Truck Safety Inspector Device Identifier Shelf Expiration Date Model / Serial / Lot [id number] - [id number] Implanted:Qty: 1 on 01/11/2016 by Stacey [place] MD at [facility] Explanted:Qty: 1 on 09/18/2016 at [facility] DEVICE Left: BREAST [employer] 10/03/2018 [id number] / [id number] Description:TONY ROUSE PROF ILE TISSUE SOFTWARE APPLICATIONS SPECIALIST [id number] - [id number] Implanted:Qty: 1 on 09/18/2016 by Eddi Delarosa MD at [facility] Explanted:Qty: 1 on 12/17/2016 at [facility] DEVICE Left: BREAST XX-[employer]overdale Emerson 07/03/2020 [id number] / [id number] Description:SPRING Lazaro IGH PROFILE TISSUE SOFTWARE APPLICATIONS SPECIALIST Procedures Procedure Name Priority Date/Time Associated Diagnosis [...] Negative (Non Reactive) 11/08/2021 3:48 PM CDT [facility] Comment:HIV-1 p24 Antigen an d HIV-1/HIV-2 Antibody not detected Blood Venipuncture / Unknown 11/08/2021 9:43 AM CDT 11/08/2021 9:44 AM CDT Rand Smyth MD LAB_1 Final Result [facility] [address] [address], [facility] [phone] * (ABNORMAL) Lipid Panel and Direct LDL(If Needed) (11/08/2021 9:43 AM CDT) Cholesterol 287(H) 0 - 199 mg/dL 11/08/2021 4:00 PM CDT [facility] Triglyceride 100 <=149 mg/dL 11/08/2021 4:00 PM CDT [facility] HDL Cholesterol 66 >=40 mg/dL 11/08/2021 4:00 PM CDT [facility] LDL, Calculated 201(H) <130 mg/dL 11/08/2021 4:00 PM CDT [facility] Non HDL Chol, Calculated 221(H) <=159 mg/dL 11/08/2021 4:00 PM CDT [facility] Cholesterol/HDL Ratio 4.3 11/08/2021 4:00 PM T [facility] Hours Fasting 0 11/08/2021 4:00 PM T [facility] Blood Venipuncture / Unknown 11/08/2021 9:43 AM CDT 11/08/2021 9:44 AM CDT Rand Smyth MD LAB_1 Final Result Performing Organization Address City/[facility]/ZIP Co de Phone Number [facility] [address] [address], [facility] [phone] [facility] [address] [place] [address] * Hepatitis C Antibody, with Reflex (11/08/2021 9:43 AM CDT) Hepatitis C Antibody Negative (Non Reactive) Negative (Non Reactive) 11/08/2021 3:46 PM CDT [facility] Comment:Antibodies to HCV no t detected. Does not exclude the possiblity of exposure to HCV. Blood Venipuncture / Unknown 11/08/2021 9:43 AM CDT 11/08/2021 9:44 AM CDT us Rand Smyth MD LAB_1 Final Result Performing Organization Address City/State/[facility] Co de Phone Number [facility] [address] [address], [facility] [phone] * COLONOSCOPY S (10/19/2018 12:00 AM CDT) 10/19/2018 us Josh Manzanares MD DUMMY/OTHER/ AR Final Result from Last 3 Months or Most Recently Relevant to Health Maintenance Insurance MEDICARE PART A [facility] OUT OF STATE Advance Directives * Full [...] 5:36 AM 04/15/2016 6:06 PM Care Teams Insurance Underwriting Assistant Relationship Specialty Start Date End Date Rand Smyth MD [address] [place] [facility] [address] PCP - General Internal Medicine/Pediatrics 05/31/22
--- OUTSIDE RECORDS SUMMARY | 2024-06-22 06:05 | XMS_ITS | Encounter Summary ---
Author Organization [employer] Address [address] [place] [address] Care Team Providers Care Soil Specialist Name Role Phone Rand Smyth MD Primary Care Provider + [phone] Encounter Details Date Type Department Care Team (Late st Contact Info) Description 04/08/2016 Home Visit [facility] [address] [place] [address], [address] [place] [address] Angela Raymond RN [address] [place] [address] Social History Tobacco Use Types Packs/Day Years [...] wound care. A - Client admitted to [facility] on 04/07/16 for unkn reason. R - Transfer all cares to inpatient. JFAmber 04/08/16 RAL SERVICE LICENSEE documented in this encounter Plan of Treatment Upcoming Encounters Date Type Department Care Team (Late st Contact Info) Description 06/23/2024 9:00 AM FUNERAL SERVICE LICENSEE Telemedicine [facility] [address] [place] [address] Rand Smyth MD [address] [place] [address] documented as of this encounter Visit Diagnoses Not on filedocumented in this encounter Additional Health Concerns Infection Onset Date Last Indicated Resolved Time COVID19 03/13/2020 03/13/2020 04/03/2020 3:17 AM FUNERAL SERVICE LICENSEE R/O COVID19 04/04/2021 04/04/2021 04/05/2021 8:29 PM FUNERAL SERVICE LICENSEE COVID19 04/04/2021 04/04/2021 04/24/2021 3:17 AM FUNERAL SERVICE LICENSEE documented as of this encounter Care Teams Soil Specialist Relationship Specialty Start Date End Date Rand Smyth MD [address] [place] [address] PCP - General Internal Medicine/Pediatrics 05/31/22 documented as of this encounter
--- OUTSIDE RECORDS SUMMARY | 2024-06-22 06:05 | XMS_ITS | Encounter Summary ---
Author Organization [employer] Address [address] [place] [address] Care Team Providers Care Wild Animal Caretaker Name Role Phone Rand Smyth MD Primary Care Provider [phone] Encounter Details Date Type Department Care Team (Late st Contact Info) Description 03/14/2016 Correspondence [place] [address] [place] [address] Josh Manzanares MD [address] [facility] [place] [address] PHYSICIANS INTERIM ORDER REPORT Social History Tobacco [...] (Late Contact Info) Description 06/23/2024 9:00 AM MILLER FIRST Telemedicine [facility] [address] [place] [address] Rand Smyth MD [address] [facility] [place] [address] documented as of this encounter Visit Diagnoses Not on filedocumented in this encounter Additional Health Concerns Infection Onset Date Last Indicated Resolved Time COVID19 03/13/2020 03/13/2020 04/03/2020 3:17 AM MILLER FIRST R/O COVID19 04/04/2021 04/04/2021 04/05/2021 8:29 PM MILLER FIRST COVID19 04/04/2021 04/04/2021 04/24/2021 3:17 AM MILLER FIRST documented as of this encounter Care Teams Wild Animal Caretaker Relationship Specialty Start Date End Date Rand Smyth MD [address] [place] [address] PCP - General Internal Medicine/Pediatrics 05/31/22 documented as of this encounter
--- OUTSIDE RECORDS SUMMARY | 2024-06-22 06:05 | XMS_ITS | Encounter Summary ---
Author Organization [employer] Address [address] [place] [address] Care Team Providers Care Log Chipper Name Role Phone Rand Smyth MD Primary Care Provider [phone] Encounter Details Date Type Department Care Team (Late st Contact Info) Description 10/15/2016 Consent for Procedure/Treatme nt [facility] Department INFORMED CONSENT RECORD Social History [...] st Contact Info) Description 06/23/2024 9:00 AM BANK TELLER Telemedicine [facility] [address] [place] [address] Rand Smyth MD [address] [place] [address] documented as of this encounter Visit Diagnoses Not on filedocumented in this encounter Additional Health Concerns Infection Onset Date Last Indicated Resolved Time COVID19 03/13/2020 03/13/2020 04/03/2020 3:17 AM BANK TELLER R/O COVID19 04/04/2021 04/04/2021 04/05/2021 8:29 PM BANK TELLER COVID19 04/04/2021 04/04/2021 04/24/2021 3:17 AM BANK TELLER documented as of this encounter Care Teams Log Chipper Relationship Specialty Start Date End Date Rand Smyth MD [address] [place] [address] PCP - General Internal Medicine/Pediatrics 05/31/22 documented as of this encounter
--- OUTSIDE RECORDS SUMMARY | 2024-06-22 06:05 | XMS_ITS | Encounter Summary ---
Author Organization [email or web address] [facility] [email or web address] Address [address] [place] [address] Care Team Providers Care Crime Analyst Name Role Phone Rand Smyth MD Primary Care Provider + [phone] Encounter Details Date Type Department Care Team [...] st Contact Info) Description 06/23/2024 9:00 AM FRACTIONATING STILL OPERATOR Telemedicine [facility] [address] [place] [address] Rand Smyth MD [address] [place] [address] documented as of this encounter Visit Diagnoses Not on filedocumented in this encounter Additional Health Concerns Infection Onset Date Last Indicated Resolved Time COVID19 03/13/2020 03/13/2020 04/03/2020 3:17 AM FRACTIONATING STILL OPERATOR R/O COVID19 04/04/2021 04/04/2021 04/05/2021 8:29 PM FRACTIONATING STILL OPERATOR COVID19 04/04/2021 04/04/2021 04/24/2021 3:17 AM FRACTIONATING STILL OPERATOR documented as of this encounter Care Teams Crime Analyst Relationship Specialty Start Date End Date Rand Smyth MD [address] [place] [address] PCP - General Internal Medicine/Pediatrics 05/31/22 documented as of this encounter
--- OUTSIDE RECORDS SUMMARY | 2024-06-22 06:05 | XMS_ITS | Encounter Summary ---
Author Organization [employer] Address [address] [place] [address] Care Team Providers Care Gas Compressor Operator Name Role Phone Rand Smyth MD Primary Care Provider [phone] Encounter Details Date Type Department Care Team (Late st Contact Info) Description 09/18/2016 Consent for Procedure/Treatme nt [facility] Department INFORMED CONSENT RECORD Social [...] st Contact Info) Description 06/23/2024 9:00 AM VOLUNTEER SERVICES ASSISTANT Telemedicine [facility] [address] [place] [address] Rand Smyth MD [address] [place] [address] documented as of this encounter Visit Diagnoses Not on filedocumented in this encounter Additional Health Concerns Infection Onset Date Last Indicated Resolved Time COVID19 03/13/2020 03/13/2020 04/03/2020 3:17 AM VOLUNTEER SERVICES ASSISTANT R/O COVID19 04/04/2021 04/04/2021 04/05/2021 8:29 PM VOLUNTEER SERVICES ASSISTANT COVID19 04/04/2021 04/04/2021 04/24/2021 3:17 AM VOLUNTEER SERVICES ASSISTANT documented as of this encounter Care Teams Gas Compressor Operator Relationship Specialty Start Date End Date Rand Smyth MD [address] [place] [address] PCP - General Internal Medicine/Pediatrics 05/31/22 documented as of this encounter
--- OUTSIDE RECORDS SUMMARY | 2024-06-22 06:05 | XMS_ITS | Encounter Summary ---
Author Organization [employer] Address [address] [place] [address] Care Team Providers Care General Office Associate Name Role Phone Rand Smyth MD Primary Care Provider + [phone] Encounter Details Date Type Department Care Team [...] Contact Info) Description 06/23/2024 9:00 AM SECURITY SOLUTIONS ENGINEER Telemedicine [facility] [address] [place] [address] Rand Smyth MD [address] [place] [address] documented as of this encounter Visit Diagnoses Not on filedocumented in this encounter Additional Health Concerns Infection Onset Date Last Indicated Resolved Time COVID19 03/13/2020 03/13/2020 04/03/2020 3:17 AM SECURITY SOLUTIONS ENGINEER R/O COVID19 04/04/2021 04/04/2021 04/05/2021 8:29 PM SECURITY SOLUTIONS ENGINEER COVID19 04/04/2021 04/04/2021 04/24/2021 3:17 AM SECURITY SOLUTIONS ENGINEER documented as of this encounter Care Teams General Office Associate Relationship Specialty Start Date End Date Rand Smyth MD [address] [place] [address] PCP - General Internal Medicine/Pediatrics 05/31/22 documented as of this encounter
--- OUTSIDE RECORDS SUMMARY | 2024-06-22 06:05 | XMS_ITS | Encounter Summary ---
Author Organization [employer] Address [address] [place] [address] Care Team Providers Care Geodetic Survey Director Name Role Phone Rand Smyth MD Primary Care Provider + [phone] Encounter Details Date Type Department Care Team (Late st Contact Info) Description 07/03/2016 Consent for Procedure/Treatme nt [facility] [address] [facility], [address] [place] [address] Kenya Martines FACIAL CONSENT FORM Social History [...] st Contact Info) Description 06/23/2024 9:00 AM SHEAR OPERATOR HELPER Telemedicine [facility] [address] [place] [address] Rand Smyth MD [address] [place] [address] documented as of this encounter Visit Diagnoses Not on filedocumented in this encounter Additional Health Concerns Infection Onset Date Last Indicated Resolved Time COVID19 03/13/2020 03/13/2020 04/03/2020 3:17 AM SHEAR OPERATOR HELPER R/O COVID19 04/04/2021 04/04/2021 04/05/2021 8:29 PM SHEAR OPERATOR HELPER COVID19 04/04/2021 04/04/2021 04/24/2021 3:17 AM SHEAR OPERATOR HELPER documented as of this encounter Care Teams Geodetic Survey Director Relationship Specialty Start Date End Date Rand Smyth MD [address] [place] [address] PCP - General Internal Medicine/Pediatrics 05/31/22 documented as of this encounter
--- OUTSIDE RECORDS SUMMARY | 2024-06-22 06:05 | XMS_ITS | Encounter Summary ---
Author Organization [employer] Address [address] [place] [address] Care Team Providers Care Senior Quality Technician Name Role Phone Rand Smyth MD Primary Care Provider + [phone] Encounter Details Date Type Department Care Team (Late Contact Info) Description 04/11/[address] [id number] Josh Manzanares MD [address] [place] [address] 02-18-16 HOME HEALTH PLAN OF TREATMENT Social [...] (Late Contact Info) Description 06/23/2024 9:00 AM CLINICAL SERVICES SPECIALIST Telemedicine [facility] [address] [place] [address] Rand Smyth MD [address] [place] [address] documented as of this encounter Visit Diagnoses Not on filedocumented in this encounter Additional Health Concerns Infection Onset Date Last Indicated Resolved Time COVID19 03/13/2020 03/13/2020 04/03/2020 3:17 AM CLINICAL SERVICES SPECIALIST R/O COVID19 04/04/2021 04/04/2021 04/05/2021 8:29 PM CLINICAL SERVICES SPECIALIST COVID19 04/04/2021 04/04/2021 04/24/2021 3:17 AM CLINICAL SERVICES SPECIALIST documented as of this encounter Care Teams Senior Quality Technician Relationship Specialty Start Date End Date Rand Smyth MD [address] [place] [address] PCP - General Internal Medicine/Pediatrics 05/31/22 documented as of this encounter
--- OUTSIDE RECORDS SUMMARY | 2024-06-22 06:05 | XMS_ITS | Encounter Summary ---
Author Organization [employer] Address [address] [place] [address] Care Team Providers Care Hourly Associate Name Role Phone Rand Smyth MD Primary Care Provider [phone] Encounter Details Date Type Department Care Team (Late st Contact Info) Description 04/09/2016 Consent for Procedure/Treatme nt [facility] Department INFORMED CONSENT RECORD Social [...] st Contact Info) Description 06/23/2024 9:00 AM POLICEMAN Telemedicine [facility] [address] [place] [address] Rand Smyth MD [address] [place] [address] documented as of this encounter Visit Diagnoses Not on filedocumented in this encounter Additional Health Concerns Infection Onset Date Last Indicated Resolved Time COVID19 03/13/2020 03/13/2020 04/03/2020 3:17 AM POLICEMAN R/O COVID19 04/04/2021 04/04/2021 04/05/2021 8:29 PM POLICEMAN COVID19 04/04/2021 04/04/2021 04/24/2021 3:17 AM POLICEMAN documented as of this encounter Care Teams Hourly Associate Relationship Specialty Start Date End Date Rand Smyth MD [address] [place] [address] PCP - General Internal Medicine/Pediatrics 05/31/22 documented as of this encounter
--- OUTSIDE RECORDS SUMMARY | 2024-06-22 06:05 | XMS_ITS | Encounter Summary ---
Author Organization [employer] Address [address] [place] [address] Care Team Providers Care Solid Waste Collection Worker Name Role Phone Rand Smyth MD Primary Care Provider [phone] Encounter Details Date Type Department Care Team (Late st Contact Info) Description 01/27/2018 Consent for Procedure/Treatme nt [facility] [...] st Contact Info) Description 06/23/2024 9:00 AM SLAT PICKLER Telemedicine [facility] [address] [place] [address] Rand Smyth MD [address] [place] [address] documented as of this encounter Visit Diagnoses Not on filedocumented in this encounter Additional Health Concerns Infection Onset Date Last Indicated Resolved Time COVID19 03/13/2020 03/13/2020 04/03/2020 3:17 AM SLAT PICKLER R/O COVID19 04/04/2021 04/04/2021 04/05/2021 8:29 PM SLAT PICKLER COVID19 04/04/2021 04/04/2021 04/24/2021 3:17 AM SLAT PICKLER documented as of this encounter Care Teams Solid Waste Collection Worker Relationship Specialty Start Date End Date Rand Smyth MD [address] [place] [address] PCP - General Internal Medicine/Pediatrics 05/31/22 documented as of this encounter
--- OUTSIDE RECORDS SUMMARY | 2024-06-22 06:05 | XMS_ITS | Encounter Summary ---
Author Organization [employer] Address [address] [place] [address] Care Team Providers Care Street Vendor Name Role Phone Radn Smyth MD Primary Care Provider [phone] Encounter Details Date Type Department Care Team (Late st Contact Info) Description 12/16/2016 Consent for Procedure/Treatme nt [facility] Department INFORMED CONSENT RECORD Social [...] st Contact Info) Description 06/23/2024 9:00 AM CHEMICAL EQUIPMENT CONTROLLER Telemedicine [facility] [address] [place] [address] Rand Smyth MD [address] [place] [address] documented as of this encounter Visit Diagnoses Not on filedocumented in this encounter Additional Health Concerns Infection Onset Date Last Indicated Resolved Time COVID19 03/13/2020 03/13/2020 04/03/2020 3:17 AM CHEMICAL EQUIPMENT CONTROLLER R/O COVID19 04/04/2021 04/04/2021 04/05/2021 8:29 PM CHEMICAL EQUIPMENT CONTROLLER COVID19 04/04/2021 04/04/2021 04/24/2021 3:17 AM CHEMICAL EQUIPMENT CONTROLLER documented as of this encounter Care Teams Street Vendor Relationship Specialty Start Date End Date Rand Smyth MD [address] [place] [address] PCP - General Internal Medicine/Pediatrics 05/31/22 documented as of this encounter
--- OUTSIDE RECORDS SUMMARY | 2024-06-22 06:05 | XMS_ITS | Encounter Summary ---
Author Organization [employer] Address [address] [place] [address] Care Team Providers Care Golf Course Designer Name Role Phone Rand Smyth MD Primary Care Provider + [phone] Encounter Details Date Type Department Care Team [...] st Contact Info) Description 06/23/2024 9:00 AM CURTAIN STRETCHER Telemedicine [facility] [address] [place] [address] Rand Smyth MD [address] [place] [address] documented as of this encounter Visit Diagnoses Not on filedocumented in this encounter Additional Health Concerns Infection Onset Date Last Indicated Resolved Time COVID19 03/13/2020 03/13/2020 04/03/2020 3:17 AM CURTAIN STRETCHER R/O COVID19 04/04/2021 04/04/2021 04/05/2021 8:29 PM CURTAIN STRETCHER COVID19 04/04/2021 04/04/2021 04/24/2021 3:17 AM CURTAIN STRETCHER documented as of this encounter Care Teams Golf Course Designer Relationship Specialty Start Date End Date Rand Smyth MD [address] [place] [address] PCP - General Internal Medicine/Pediatrics 05/31/22 documented as of this encounter
--- OUTSIDE RECORDS SUMMARY | 2024-06-22 06:05 | XMS_ITS ---
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 Speech disturbance 06/20/2021 Dysphonia 06/20/2021 Vocal cord dysfunction 06/20/2021 Myofascial pain 01/02/2018 Diffuse pain 11/07/2017 Personal history of malignant neoplasm of breast 08/11/2017 Overview (08/11/2017): Added automatically from request for surgery [id number] Ventral hernia without obstruction or gangrene 1 Left-sided chest wall pain 01/15/2017 H/O breast reconstruction 11/28/2016 Overview (11/28/2016): Added automatically from request for surgery [id number] Breast hematoma 10/15/2016 Overview (10/15/2016): Added automatically from request for surgery [id number] Rash of body 06/18/2016 H/O bilateral mastectomy [...] Noted Date Diagnosed Date Resolved Date CAREPLAN: [email or web address] 9 01/18/2019 Overview (01/18/2019): PT CARE COORDINATION - [facility] 02/19/2017 01/09/2018 Overview (05/20/2017): If you have any questions or concerns please contact: Your Care Team at [facility] Primary Care Provider: Josh Manzanares MD RN Coordinator: Aamnda Simpson RN CareLine at [phone] or after hours and on weekends. Care Coordination (Community Resources, Specialists, Home Health Agency, Caregiver, Supply Vendor, Blood Bank Order Control Clerk) Contact Name SANKET Obtained? Phone Number Role in Care Comments Lucy Harley RN (Michelle) N/A [phone] DCM Action Plan Donte's Chosen Goal: Brynn [...] 04/04/2017 Left shoulder pain 06/05/2016 7 CAREPLAN: [facility] 6 10/09/2017 Bilateral hip pain 04/12/2014 5
[2024-06-22 06:30] VITALS: BP 125/74; PULSE 81; RESP 20; TEMP 36.6; O2SAT 97
[2024-06-22 06:31] VITALS: BP 125/74; PULSE 81; RESP 20; TEMP 36.6
== END 2024-06-22 06:31 | disposition home or self-care (01) ==
PROVIDERS: Emergency Provider Family Medicine
DX: J32.9 Chronic sinusitis, unspecified (principal); R10.9 Unspecified abdominal pain
CPT/HCPCS: 99283